=== PATIENT | male | born 1945 | race Caucasian/White ===

== ENCOUNTER 2018-07-17 20:54 | Inpatient (IN) | payer OTHER ==
[~2018-07-17] VITALS: Ht 170.2 cm; Wt 70.8 kg
[~2018-07-17 20:54] MED LIST: ASPI-630 PO; AZAT50TA20 PO; CARV25TA PO; FENO145T PO; GLYB1.252 PO; METF500T16 PO; SIMV40TA PO; VALS160T3 PO; WARF2TAB PO
[2018-07-17] MEDS ORDERED: ADENOSINE 6 MG/2 ML VIAL. IV ONE (21:30)
[2018-07-17] MEDS ORDERED: ASPIRIN CHEWABLE 81 MG TABLET. PO ONE (21:30)
[2018-07-17 21:36] LABS: BASO % 0 % (0-3); EOS # 0.1 x10^3/uL (0.0-0.7); EOS % 1 % (0-3); HEMATOCRIT 47.9 % (39.0-53.0); LYMPH # 1.4 x10^3/uL (1.0-4.8); LYMPH % 19 % (24-48); MEAN CORPUSCULAR HEMOGLOBIN 29 pg (25-35); MEAN CORPUSCULAR HGB CONC 33 g/dL (31-37); MEAN CORPUSCULAR VOLUME 87 fL (79-100); MONO # 0.7 x10^3/uL (0.0-1.1); MONO % 9 % (0-9); NEUT # 5.1 x10^3uL (1.8-7.7); NEUT % 70 % (31-73); PLATELET COUNT 187 x10^3/uL (140-400); RED BLOOD COUNT 5.48 x10^6/uL (4.30-5.70); RED CELL DISTRIBUTION WIDTH 13.6 % (11.5-14.5); WHITE BLOOD COUNT 7.3 x10^3/uL (4.0-11.0)
--- NOTE | 2018-07-17 21:38 | RAD ---
Exam: AP portable chest History: Chest pain for 2 days. Comparison: February 20, 2014. Findings: The heart and mediastinal structures are within normal limits for size. Lungs are without infiltrate. No pleural effusion or pneumothorax is identified. Aortic atherosclerosis is seen. Impression: 1. No acute cardiopulmonary process. Electronically signed by: Magnus Soler MD (07/17/2018 9:35 PM) [facility]
[2018-07-17 21:44] LABS: PROTHROMBIN TIME PATIENT 27.3 SEC (11.7-14.0)
[2018-07-17] MEDS ORDERED: dilTIAZem IV PUSH 25 MG/5 ML VIAL ONE (21:46)
[2018-07-17 21:48] LABS: CALCIUM 9.4 mg/dL (8.5-10.1); CREATININE 1.4 mg/dL (0.7-1.3); POTASSIUM 4.8 mmol/L (3.5-5.1)
[2018-07-17 21:53] LABS: ALBUMIN 3.9 g/dL (3.4-5.0); ALBUMIN/GLOBULIN RATIO 0.9 (1.0-1.7); MAGNESIUM 1.8 mg/dL (1.8-2.4); TOTAL BILIRUBIN 0.7 mg/dL (0.2-1.0); TOTAL PROTEIN 8.1 g/dL (6.4-8.2)
[2018-07-17] MEDS ORDERED: dilTIAZem IV PUSH 25 MG/5 ML VIAL IVP ONE (22:00)
[2018-07-17] MEDS ORDERED: dilTIAZem INJ 125 MG in IV DEXTROSE 5% 100ML 100 ML IV ONE (22:00)
--- NOTE | 2018-07-17 23:13 | PHYS DOC ---
Past Medical History Past Medical History: CAD, CVA, Diabetes-Type II, Hypertension, OR, Other Additional Past Medical Histor: states,"he has had heart problems." OR 2004 Past Surgical History: Other Additional Past Surgical Histo: R) ear drum removed,gallstones and kidney stones, fatty tumor removed from Alcohol Use: None Drug Use: None Adult General Chief Complaint Chief Complaint: CHEST PAIN HPI HPI Patient is a 73 year old [male who presents with [chest pain. This is been going on intermittently for the past 2 days. Patient also reports a fast heart rate when this seems to happen. Patient notes increased work of breathing, decreased exercise tolerance. The chest pain does improve when it is going on when he does rest. No orthopnea. No lower extremity swelling. Patient reports this pain is similar to the pain that he had with his previous heart attack. Patient also has a history of previous stroke. 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 His primary care physician is Kylie Walter. He denies any radiation of the discomfort. Reports the discomfort as a heaviness.] Review of Systems Review of Systems Constitutional: Denies fever or chills [] Eyes: Denies change in visual acuity, redness, or eye pain [] HENT: Denies nasal congestion or sore throat [] Respiratory: Denies cough or shortness of breath [] Cardiovascular: No additional information not addressed in HPI [] GI: Denies abdominal pain, nausea, vomiting, bloody stools or diarrhea [] : Denies dysuria or hematuria [] Musculoskeletal: Denies back pain or joint pain [] Integument: Denies rash or skin lesions [] Neurologic: Denies headache, focal weakness or sensory changes [] Endocrine: Denies polyuria or polydipsia [] All other systems were reviewed and found to be within normal limits, except as documented in this note. Current Medications Current Medications Current Medications Medications (Trade) Dose Ordered Sig/Mykel Start Time Stop Time Status Last Admin Dose Admin Adenosine (Adenocard) 18 mg 1X ONCE 07/17/18 21:30 07/17/18 21:31 DC 07/17/18 21:40 18 MG Aspirin (Children'S Aspirin) 324 mg 1X ONCE 07/17/18 21:30 07/17/18 21:31 DC 07/17/18 21:35 324 MG Diltiazem HCl (Cardizem) 10 mg 1X ONCE 07/17/18 22:00 07/17/18 22:01 DC Diltiazem HCl 125 mg/Dextrose 125 ml @ 5 mls/hr 1X ONCE 07/17/18 22:00 07/18/18 22:59 Allergies Allergies Allergies Coded Allergies Type Severity Reaction Last Updated Verified No Known Drug Allergies 02/20/14 No Physical Exam Physical Exam Constitutional: Well developed, well nourished, moderate discomfort, non-toxic appearance. [] HENT: Normocephalic, atraumatic, bilateral external ears normal, oropharynx moist, no oral exudates, nose normal. [] Eyes: PERRLA, EOMI, conjunctiva normal, no discharge. [] Neck: Normal range of motion, no tenderness, supple, no stridor. [] Cardiovascular:Heart rate is tachycardic, regular rhythm, no murmur [] Lungs & Thorax: Bilateral breath sounds clear to auscultation [] Abdomen: Bowel sounds normal, soft, no tenderness, no masses, no pulsatile masses. [] Skin: Warm, dry, no erythema, no rash. [] Back: No tenderness, no CVA tenderness. [] Extremities: No tenderness, no cyanosis, no clubbing, ROM intact, no edema. [] Neurologic: Alert and oriented X 3, normal motor function, normal sensory function, no focal deficits noted. [] Psychologic: Affect normal, judgement normal, mood normal. [] Current Patient Data Vital Signs Vital Signs Date Time Temp Pulse Resp B/P (MAP) Pulse Ox O2 Delivery O2 Flow Rate FiO2 07/17/18 22:25 85 19 113/69 (84) 98 Room Air 07/17/18 21:05 97.6 97.6 Lab Values Laboratory Tests Test 07/17/18 21:15 07/17/18 21:26 White Blood Count 7.3 x10^3/uL (4.0-11.0) Red Blood Count 5.48 x10^6/uL (4.30-5.70) Hemoglobin 16.0 g/dL (13.0-17.5) Hematocrit 47.9 % (39.0-53.0) Mean Corpuscular Volume 87 fL (79-100) Mean Corpuscular Hemoglobin 29 pg (25-35) Mean Corpuscular Hemoglobin Concent 33 g/dL (31-37) Red Cell Distribution Width 13.6 % (11.5-14.5) Platelet Count 187 x10^3/uL (140-400) Neutrophils (%) (Auto) 70 % (31-73) Lymphocytes (%) (Auto) 19 % (24-48) L Monocytes (%) (Auto) 9 % (0-9) Eosinophils (%) (Auto) 1 % (0-3) Basophils (%) (Auto) 0 % (0-3) Neutrophils # (Auto) 5.1 x10^3uL (1.8-7.7) Lymphocytes # (Auto) 1.4 x10^3/uL (1.0-4.8) Monocytes # (Auto) 0.7 x10^3/uL (0.0-1.1) Eosinophils # (Auto) 0.1 x10^3/uL (0.0-0.7) Basophils # (Auto) 0.0 x10^3/uL (0.0-0.2) Prothrombin Time 27.3 SEC (11.7-14.0) H Prothrombin Time INR 2.6 (0.8-1.1) H Sodium Level 142 mmol/L (136-145) Potassium Level 4.8 mmol/L (3.5-5.1) Chloride Level 104 mmol/L (98-107) Carbon Dioxide Level 25 mmol/L (21-32) Anion Gap 13 (6-14) Blood Urea Nitrogen 19 mg/dL (8-26) Creatinine 1.4 mg/dL (0.7-1.3) H Estimated GFR (Cockcroft-Gault) 50.0 BUN/Creatinine Ratio 14 (6-20) Glucose Level 219 mg/dL (70-99) H Calcium Level 9.4 mg/dL (8.5-10.1) Magnesium Level 1.8 mg/dL (1.8-2.4) Total Bilirubin 0.7 mg/dL (0.2-1.0) Aspartate Amino Transferase (AST) 60 U/L (15-37) H Alanine Aminotransferase (ALT) 79 U/L (16-63) H Alkaline Phosphatase 75 U/L (46-116) Creatine Kinase 88 U/L (39-308) Creatine Kinase MB (Mass) 6.4 ng/mL (0.0-3.6) H Creatine Kinase MB Relative Index 7.3 % (0-4) H Troponin I Quantitative 0.840 ng/mL (0.000-0.055) OK-Nrt-X-Type Natriuretic Peptide 1259 pg/mL (0-124) H Total Protein 8.1 g/dL (6.4-8.2) Albumin 3.9 g/dL (3.4-5.0) Albumin/Globulin Ratio 0.9 (1.0-1.7) L Lipase 206 U/L (73-393) POC Troponin I 0.25 ng/ml (<0.08) Laboratory Tests 07/17/18 21:15 Laboratory Tests 07/17/18 21:15 EKG EKG EKG several EKGs were obtained during the patient's stay the initial one showed a tachycardia with QRS and normal axis that appeared to be an SVT. There was no ST elevation[] Radiology/Procedures Radiology/Procedures Portable chest x-ray obtained that showed no infiltrate, no effusion, no pneumothorax[] Course & Med Decision Making Course & Med Decision Making Pertinent Labs and Imaging studies reviewed. (See chart for details) [Patient's cardiac enzymes/troponin was elevated at 0.8. ED course patient arrived, was placed in bed, and tolerated evaluation well. Patient was initially felt to be in SVT given his tachycardia that was regular and so 2 IV sites were established and patient gave verbal consent after risks and benefits of adenosine cardioversion were explained to him with all questions answered. Patient was placed on hospital monitor with the crash cart at bedside. An initial dose of 6 mg of adenosine was administered without any significant change in the heart rate, a second dose of 12 mg of adenosine was administered that revealed an underlying fibrillation pattern. Patient's heart rate promptly returned to the 130s to 140s. As preparation was being made for diltiazem bolus and infusion, his heart rate slowed to the 80s and a repeat EKG was obtained that showed a heart rate of 69, normal axis, flipped T waves in the lateral leads as well as inferiorly. Patient reported that his pain was improved. Consultation was made with Dr. Eldridge in cardiology who agreed with the plan. Patient was admitted to Dr. Madrigal and the hospitalist service. Discussion was made with patient and his who voiced understanding of the plan and QUESTIONS were answered. Critical care time of 35-70 minutes was provided. Medical decision-making: It appears this patient had more of a supply demand mismatch due to the tachycardia rather than a fixed obstruction requiring urgent /emergent cardiac catheterization. Patient did receive aspirin while in the emergency department. Patient's INR was appropriate at 2.6 to not require further anticoagulation at this time.] Dragon Disclaimer Dragon Disclaimer This electronic medical record was generated, in whole or in part, using a voice recognition dictation system. Departure Departure Impression: Primary Impression: Atrial fibrillation with rapid ventricular response Additional Impression: Non-STEMI (non-ST elevated myocardial infarction) Disposition: 09 ADMITTED INPATIENT Admitting Physician: Other Condition: IMPROVED Referrals: KYLIE WALTER APRN (PCP) Problem Qualifiers SAGAR BROTHERS DO Jul 17, 2018 23:13
[2018-07-18] VITALS (16 sets, daily range): BP systolic 99–164; BP diastolic 57–97
[2018-07-18] MEDS ORDERED: LOSA1TAB19 PO
--- NOTE | 2018-07-18 01:56 | EKG ---
[facility] [address] [place] [address] Test Date: 2018-07-17 Test Time: 21:58:18 Pat Name: ABHILASH FREIRE Department: Room: 269 1 Gender: M Pharmacy Intake Technician: : 1945 Requested By: SAGAR BROTHERS Order Number: [id number] Reading MD: Yung Buckley MD Measurements Intervals [place] Rate: 69 P: 41 CT: 152 QRS: 26 QRSD: 94 T: 15 QT: 398 QTc: 428 Interpretive Statements SINUS RHYTHM Electronically Signed On 07-18-2018 9:21:19 CDT by Yung Buckley MD
--- NOTE | 2018-07-18 01:56 | EKG ---
[facility] [address] [place] [address] Test Date: 2018-07-17 Test Time: 21:09:54 Pat Name: ABHILASH FREIRE Department: Room: 269 1 Gender: M Detacher: : 1945 Requested By: SAGAR BROTHERS Order Number: [id number] Reading MD: Yung Buckley MD Measurements Intervals [place] Rate: 135 P: [place]: QRS: 45 QRSD: 86 T: -49 QT: 280 QTc: 424 Interpretive Statements SUPRAVENTRICULAR TACHYCARDIA ANTEROLATERAL INJURY/ISCHEMIA NON-SPECIFIC ST/T CHANGES Electronically Signed On 07-18-2018 13:50:04 CDT by Yung Buckley MD
--- NOTE | 2018-07-18 01:56 | EKG ---
[facility] [address] [place] [address] Test Date: 2018-07-17 Test Time: 21:41:03 Pat Name: ABHILASH FREIRE Department: Room: 269 1 Gender: M Shift Engineer: : 1945 Requested By: SAGAR BROTHERS Order Number: [id number] Reading MD: Yung Buckley MD Measurements Intervals [place] Rate: 132 P: [place]: QRS: 44 QRSD: 88 T: -94 QT: 290 QTc: 432 Interpretive Statements SVT CONSIDER ANTEROLATERAL ISCHEMIA Electronically Signed On 07-18-2018 9:22:06 CDT by Yung Buckley MD
--- NOTE | 2018-07-18 07:02 | PDOC1 ---
History and Physical Date of Admission Date of Admission DATE: 07/18/18 TIME: 06:58 Identification/Chief Complaint Chief Complaint Shortness of breath NSTEMI Source Source: Caregiver (), Chart review, Patient History of Present Illness History of Present Illness 73 year old male who presents with chest pain. This is been going on intermittently for the past 2 days, described as discomfort 6/10, non- radiating. Associated with palpitations and increased work of breathing, decreased exercise tolerance. The chest pain does improve when it is going on when he does rest. No orthopnea. No lower extremity swelling. Patient reports this pain is similar to the pain that he had with his previous heart attack. Patient also has a history of previous stroke with some residual aphasia, history obtained from his as well. In ED SVT was noted and initial dose of 6 mg of adenosine was administered without any significant change in the heart rate, a second dose of 12 mg of adenosine was administered that revealed an underlying fibrillation pattern. Patient's heart rate promptly returned to the 130s to 140s. As preparation was being made for diltiazem bolus and infusion, his heart rate slowed to the 80s and a repeat EKG was obtained that showed a heart rate of 69, normal axis, flipped T waves in the lateral leads as well as inferiorly. Cr noted at 1.4, blood counts normal. Mild transaminitis with ALT and AST elevated. Patient reported that his pain was improved. Consultation was made with Dr. Eldridge in cardiology who agreed with the plan. Troponin was elevated at 0.8. and continued to climb to 7.8 overnight and 22 this morning, going to rn labor delivery urgently now. 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 Past Medical History Cardiovascular: HTN CENTRAL NERVOUS SYSTEM: CVA Past Surgical History Past Surgical History: No pertinent history Family History Family History: Heart Disease Family History: Parent Social History Smoke: Quit ALCOHOL: none Drugs: None Current Problem List Problem List Problems Medical Problems: (1) Atrial fibrillation with rapid ventricular response Status: Acute (2) Non-STEMI (non-ST elevated myocardial infarction) Status: Acute Current Medications Current Medications Current Medications Aspirin (Children'S Aspirin) 324 mg 1X ONCE PO Last administered on at 21:35; Start 07/17/18 at 21:30; Stop 07/17/18 at 21:31; Status DC Adenosine (Adenocard) 18 mg 1X ONCE IV Last administered on 07/17/18at 21:40; Start 07/17/18 at 21:30; Stop 07/17/18 at 21:31; Status DC Diltiazem HCl (Cardizem) 25 mg STK-MED ONCE .ROUTE ; Start 07/17/18 at 21:46; Stop 07/17/18 at 21:47; Status DC Diltiazem HCl (Cardizem) 10 mg 1X ONCE IVP ; Start 07/17/18 at 22:00; Stop at 22:01; Status DC Diltiazem HCl 125 mg/Dextrose 125 ml @ 5 mls/hr 1X ONCE IV ; Start 07/17/18 at 22:00; Stop 07/18/18 at 22:59 Active Scripts Active Reported Losartan-Hctz 50-12.5 Mg Tab (Losartan/Hydrochlorothiazide) 1 Each Tablet 1 Tab PO DAILY Glyburide 1.25 Mg Tablet 2.5 Mg PO BID Metformin Hcl 500 Mg Tablet 850 Mg PO BID Aspirin 81 Mg Tab.chew 81 Mg PO DAILY Coumadin (Warfarin Sodium) 2 Mg Tablet 4 Mg PO DAILY Zocor (Simvastatin) 40 Mg Tablet 20 Mg PO DAILY Coreg (Carvedilol) 25 Mg Tablet 12.5 Mg PO BID Allergies Allergies: Coded Allergies: No Known Drug Allergies (Unverified , 02/20/14) ROS General: YES: Fatigue, Malaise; No: Chills, Night Sweats, Appetite, Other PSYCHOLOGICAL ROS: No: Anxiety, Behavioral Disorder, Concentration difficultie , Decreased libido, Depression, Disorientation, Hallucinations, Hostility, Irritablity, Memory difficulties, Mood Swings, Obsessive thoughts, Physical abuse, Sexual abuse, Sleep disturbances, Suicidal ideation, Other Eyes: No Blurry vision, No Decreased vision, No Double vision, No Dry eyes, No Excessive tearing, No Eye Pain, No Itchy Eyes, No Loss of vision, No Photophobia , No Scotomata, No Uses contacts, No Uses glasses, No Other HEENT: No: Heacaches, Visual Changes, Hearing change, Nasal congestion, Nasal discharge, Oral lesions, Sinus pain, Sore Throat, Epistaxis, Sneezing, Snoring, Tinnitus, Vertigo, Vocal changes, Other ALLERGY AND IMMUNOLOGY: No: Hives, Insect Bite Sensitivity, Itchy/Watery Eyes, Nasal Congestion, Post Nasal Drip, Seasonal Allergies, Other Hematological and Lymphatic: No: Bleeding Problems, Blood Clots, Blood Transfusions, Brusing, Night Sweats, Pallor, Swollen Lymph Nodes, Other ENDOCRINE: No: Breast Changes, Galactorrhea, Hair Pattern Changes, Hot Flashes , Malaise/lethargy, Mood Swings, Palpitations, Polydipsia/polyuria, Skin Changes , Temperature Intolerance, Unexpected Weight Changes, Other Breast: No New/Changing Breast Lumps, No Nipple changes, No Nipple discharge, No Other Respiratory: YES: Shortness of breath; No: Cough, Hemoptysis, Orthopnea, Pleuritic Pain, SOB with excertion, Sputum Changes, Stridor, Tachypnea, Wheezing, Other Cardiovascular: yes Chest Pain, yes Palpitations; No Orthopnea, No Paroxysmal Noc. Dyspnea, No Edema, No Lt Headedness, No Other Gastrointestinal: No Nausea, No Vomiting, No Abdominal Pain, No Diarrhea, No Constipation, No Melena, No Hematochezia, No Other Genitourinary: No Dysuria, No Frequency, No Incontinence, No Hematuria, No Retention, No Discharge, No Urgency, No Pain, No Flank Pain, No Other, No , No , No , No , No , No , No Musculoskeletal: No Gait Disturbance, No Joint Pain, No Joint Stiffness, No Joint Swelling, No Muscle Pain, No Muscular Weakness, No Pain In:, No Swelling In:, No Other Neurological: No Behavorial Changes, No Bowel/Bladder ControlChng, No Confusion , No Dizziness, No Gait Disturbance, No Headaches, No Impaired Coord/balance, No Memory Loss, No Numbness/Tingling, No Seizures, No Speech Problems, No Tremors, No Visual Changes, No Weakness, No Other Skin: No Dry Skin, No Eczema, No Hair Changes, No Lumps, No Mole Changes, No Mottling, No Nail Changes, No Pruritus, No Rash, No Skin Lesion Changes, No Other, No Acne Physical Exam General: Alert, Cooperative, No acute distress HEENT: Atraumatic, PERRLA, EOMI, Mucous membr. moist/pink Lungs: Clear to auscultation, Normal air movement Heart: S1S2, no murmurs, other (Tachy) Abdomen: Normal bowel sounds, Soft, No tenderness, No hepatosplenomegaly, No masses Rectal Exam: not examined Extremities: No clubbing, No cyanosis, No edema, Normal pulses, No tenderness/ swelling Skin: No rashes, No breakdown, No significant lesion Neuro: Normal gait, Normal speech, Normal tone, Sensation intact, Cranial nerves 3-12 NL, Reflexes 2+ Psych/Mental Status: Mental status NL, Mood NL Vitals Vitals Vital Signs Date Time Temp Pulse Resp B/P (MAP) Pulse Ox O2 Delivery O2 Flow Rate FiO2 07/18/18 03:15 98.3 85 18 99/61 (74) 97 Room Air 98.3 Labs Labs Laboratory Tests Test 07/17/18 21:15 07/17/18 21:26 07/18/18 02:00 White Blood Count 7.3 x10^3/uL (4.0-11.0) Red Blood Count 5.48 x10^6/uL (4.30-5.70) Hemoglobin 16.0 g/dL (13.0-17.5) Hematocrit 47.9 % (39.0-53.0) Mean Corpuscular Volume 87 fL (79-100) Mean Corpuscular Hemoglobin 29 pg (25-35) Mean Corpuscular Hemoglobin Concent 33 g/dL (31-37) Red Cell Distribution Width 13.6 % (11.5-14.5) Platelet Count 187 x10^3/uL (140-400) Neutrophils (%) (Auto) 70 % (31-73) Lymphocytes (%) (Auto) 19 % (24-48) Monocytes (%) (Auto) 9 % (0-9) Eosinophils (%) (Auto) 1 % (0-3) Basophils (%) (Auto) 0 % (0-3) Neutrophils # (Auto) 5.1 x10^3uL (1.8-7.7) Lymphocytes # (Auto) 1.4 x10^3/uL (1.0-4.8) Monocytes # (Auto) 0.7 x10^3/uL (0.0-1.1) Eosinophils # (Auto) 0.1 x10^3/uL (0.0-0.7) Basophils # (Auto) 0.0 x10^3/uL (0.0-0.2) Prothrombin Time 27.3 SEC (11.7-14.0) Prothromb Time International Ratio 2.6 (0.8-1.1) Sodium Level 142 mmol/L (136-145) Potassium Level 4.8 mmol/L (3.5-5.1) Chloride Level 104 mmol/L (98-107) Carbon Dioxide Level 25 mmol/L (21-32) Anion Gap 13 (6-14) Blood Urea Nitrogen 19 mg/dL (8-26) Creatinine 1.4 mg/dL (0.7-1.3) Estimated GFR (Cockcroft-Gault) 50.0 BUN/Creatinine Ratio 14 (6-20) Glucose Level 219 mg/dL (70-99) Calcium Level 9.4 mg/dL (8.5-10.1) Magnesium Level 1.8 mg/dL (1.8-2.4) Total Bilirubin 0.7 mg/dL (0.2-1.0) Aspartate Amino Transf (AST/SGOT) 60 U/L (15-37) Alanine Aminotransferase (ALT/SGPT) 79 U/L (16-63) Alkaline Phosphatase 75 U/L (46-116) Creatine Kinase 88 U/L (39-308) Creatine Kinase MB (Mass) 6.4 ng/mL (0.0-3.6) Creatine Kinase MB Relative Index 7.3 % (0-4) Troponin I Quantitative 0.840 ng/mL (0.000-0.055) 7.839 ng/mL (0.000-0.055) EX-Pwz-G-Type Natriuretic Peptide 1259 pg/mL (0-124) Total Protein 8.1 g/dL (6.4-8.2) Albumin 3.9 g/dL (3.4-5.0) Albumin/Globulin Ratio 0.9 (1.0-1.7) Lipase 206 U/L (73-393) Bedside Troponin I 0.25 ng/ml (<0.08) Laboratory Tests Test 07/17/18 21:15 07/17/18 21:26 07/18/18 02:00 White Blood Count 7.3 x10^3/uL (4.0-11.0) Red Blood Count 5.48 x10^6/uL (4.30-5.70) Hemoglobin 16.0 g/dL (13.0-17.5) Hematocrit 47.9 % (39.0-53.0) Mean Corpuscular Volume 87 fL (79-100) Mean Corpuscular Hemoglobin 29 pg (25-35) Mean Corpuscular Hemoglobin Concent 33 g/dL (31-37) Red Cell Distribution Width 13.6 % (11.5-14.5) Platelet Count 187 x10^3/uL (140-400) Neutrophils (%) (Auto) 70 % (31-73) Lymphocytes (%) (Auto) 19 % (24-48) Monocytes (%) (Auto) 9 % (0-9) Eosinophils (%) (Auto) 1 % (0-3) Basophils (%) (Auto) 0 % (0-3) Neutrophils # (Auto) 5.1 x10^3uL (1.8-7.7) Lymphocytes # (Auto) 1.4 x10^3/uL (1.0-4.8) Monocytes # (Auto) 0.7 x10^3/uL (0.0-1.1) Eosinophils # (Auto) 0.1 x10^3/uL (0.0-0.7) Basophils # (Auto) 0.0 x10^3/uL (0.0-0.2) Prothrombin Time 27.3 SEC (11.7-14.0) Prothromb Time International Ratio 2.6 (0.8-1.1) Sodium Level 142 mmol/L (136-145) Potassium Level 4.8 mmol/L (3.5-5.1) Chloride Level 104 mmol/L (98-107) Carbon Dioxide Level 25 mmol/L (21-32) Anion Gap 13 (6-14) Blood Urea Nitrogen 19 mg/dL (8-26) Creatinine 1.4 mg/dL (0.7-1.3) Estimated GFR (Cockcroft-Gault) 50.0 BUN/Creatinine Ratio 14 (6-20) Glucose Level 219 mg/dL (70-99) Calcium Level 9.4 mg/dL (8.5-10.1) Magnesium Level 1.8 mg/dL (1.8-2.4) Total Bilirubin 0.7 mg/dL (0.2-1.0) Aspartate Amino Transf (AST/SGOT) 60 U/L (15-37) Alanine Aminotransferase (ALT/SGPT) 79 U/L (16-63) Alkaline Phosphatase 75 U/L (46-116) Creatine Kinase 88 U/L (39-308) Creatine Kinase MB (Mass) 6.4 ng/mL (0.0-3.6) Creatine Kinase MB Relative Index 7.3 % (0-4) Troponin I Quantitative 0.840 ng/mL (0.000-0.055) 7.839 ng/mL (0.000-0.055) QE-Yaa-W-Type Natriuretic Peptide 1259 pg/mL (0-124) Total Protein 8.1 g/dL (6.4-8.2) Albumin 3.9 g/dL (3.4-5.0) Albumin/Globulin Ratio 0.9 (1.0-1.7) Lipase 206 U/L (73-393) Bedside Troponin I 0.25 ng/ml (<0.08) VTE Prophylaxis Ordered VTE Prophylaxis Devices: Yes VTE Pharmacological Prophylaxi: Yes Assessment/Plan Assessment/Plan A/P: NSTEMI - with trop 22 and TWI, to rn labor delivery urgently, heparin, ASA, NTG, BB. Cardiology consulted Shortness of breath - likely cardiac wheezing H/O CVA - with some aphasia. 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 Cont coreg for rate control DM - on metformin, glyburide, hold both, change to SSI HTN - on coreg, will monitor Renal insufficiency - acute with Cr 1.4. Will give fluids prior to angiogram, cont fluids after as well as this was likely pre-renal. Hold nephrotoxic meds Diet - NPO for cath - cardiac carb consistent diet PPX - heparin, may reinitiate warfarin dependent on cardiology recs FULL CODE Admit to CVICU for NSTEMI at least 2 midnights. SOFIA AL MD Jul 18, 2018 07:02
--- NOTE | 2018-07-18 09:39 | PDOC ---
Provider Note Provider Note Full note dictated. Plan for cardiac cath later today. Thanks. MARIANGEL MCCLELLAND MD Jul 18, 2018 09:39
[2018-07-18] MEDS ORDERED: LIDOCAINE 1% PF 2 ML VIAL. ONE (10:01)
[2018-07-18] MEDS ORDERED: HEPARIN for ARTERIAL LINE 1,500 ML ONE (10:01)
[2018-07-18] MEDS ORDERED: IODIXANOL 320 MG/ML 100 ML VIAL. ONE ×2 (10:01→11:44)
[2018-07-18] MEDS ORDERED: fentaNYL PF VIAL 100 MCG/2 ML VIAL ONE (10:03)
[2018-07-18] MEDS ORDERED: HEPARIN for IV BOLUS 10,000 UNIT/10 ML VIAL. ONE ×2 (10:03→12:06)
[2018-07-18] MEDS ORDERED: VERAPAMIL 5 MG/2 ML VIAL. ONE (10:03)
[2018-07-18] MEDS ORDERED: NITROGLYCERIN 200 MCG/2 ML SYRINGE FOR CATH/VASC LAB. ONE ×2 (10:03→11:56)
[2018-07-18] MEDS ORDERED: MIDAZOLAM HCL/PF 2 MG/2 ML VIAL. ONE (10:03)
--- NOTE | 2018-07-18 10:11 | CONS ---
DATE OF CONSULTATION: 07/18/2018 REASON FOR CONSULTATION: Non-STEMI. HISTORY OF PRESENT ILLNESS: The patient is a pleasant 73-year-old gentleman with past medical history as noted below, who presents to the hospital in the setting of stuttering chest pain over the course of the previous 1-3 days. He reports that he was in his usual state of health until 3 days ago when he began to have some dizziness and intermittent chest pain. This ultimately progressed to severe kind of chest pain where he arrived to the ER. Upon arrival to the ER, he was noted to be in supraventricular tachycardia with heart rates in the 150s, which was subsequently treated with 12 mg of adenosine and it was felt that he was in atrial fibrillation. Ultimately, after being given Cardizem therapy, he converted to sinus rhythm. His post-conversion EKG revealed diffuse anterolateral T-wave inversions with a troponin of 0.8. He, after conversion, was nearly chest pain free and was admitted to the hospital overnight for monitoring and further evaluation and treatment. In speaking with the patient at baseline, he is able to ambulate and occasionally drive. He is mostly limited due to his previous stroke. Denies any active orthopnea, dyspnea, lower extremity edema. He has been compliant with his medications. PAST MEDICAL HISTORY: 1. CVA in 2003 and presumed type 2 non-STEMI at that time. 2. Diabetes. 3. Dyslipidemia. SOCIAL HISTORY: The patient denies any alcohol, tobacco or illicit drug use. He is . FAMILY HISTORY: Noncontributory. ALLERGIES: No known drug allergies. CURRENT CARDIOVASCULAR MEDICATIONS: 1. Coumadin as directed. 2. Carvedilol 25 mg b.i.d. 3. Simvastatin 40 mg daily. 4. Losartan/hydrochlorothiazide 50/12.5 one tablet daily. 5. Aspirin 81 mg daily. 6. Metformin 850 mg p.o. b.i.d. 7. Glyburide 2.5 mg p.o. b.i.d. REVIEW OF SYSTEMS: Negative for 10 out of 14 systems reviewed, unless otherwise mentioned above in HPI. PHYSICAL EXAMINATION: VITAL SIGNS: Afebrile, pulse 70, respirations 16, BP 122/73, 96% on room air. GENERAL: He is alert and oriented, in no acute distress, resting comfortably in his bed. HEAD AND NECK: His speech is mildly dysarthric due to prior stroke. No obvious trauma is noted. CARDIAC: Regular rate and rhythm without any obvious murmurs, rubs or gallops. There are no carotid bruits. LUNGS: Clear to auscultation bilaterally anteriorly. ABDOMEN: Soft, nontender, nondistended. EXTREMITIES: No clubbing, cyanosis or edema. 1+ radial and diminished pedal pulses. NEUROLOGIC: No focal deficits, but he has decreased strength throughout globally. DIAGNOSTIC STUDIES: Hemoglobin 16.0, platelets 187, INR of 2.6. Troponin trend: 0.84-7.8-22. BNP 1259. Chest x-ray demonstrates a normal heart silhouette. No obvious pathology is noted. EKGs demonstrate prior anterior infarct with diffuse anterolateral T-wave inversion suggestive of proximal LAD stenosis. IMPRESSION: 1. Non-ST elevation myocardial infarction, likely secondary to proximal LAD stenosis. 2. Supraventricular tachycardia/atrial flutter, currently in sinus rhythm. 3. Prior history of cerebrovascular accident. 4. Dyslipidemia. 5. Diabetes. RECOMMENDATIONS: I discussed with the patient and the family the risks and benefits of urgent invasive strategy with cardiac catheterization and they are willing to proceed. Further recommendations pending cardiac catheterization. Thank you for this consultation. 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 s/p PCI. see cath report. MARIANGEL MCCLELLAND MD DR: MINDI/sruthi JOB#: [id number] / [id number] RETA
[2018-07-18] MEDS ORDERED: NITROGLYCERIN 200 MCG/2 ML SYRINGE FOR CATH/VASC LAB. IART ONE (11:00)
[2018-07-18] MEDS ORDERED: VERAPAMIL 5 MG/2 ML VIAL. IART ONE (11:00)
[2018-07-18] MEDS: ASPIRIN CHEWABLE 81 MG TABLET. PO SCH (11:00)
[2018-07-18] MEDS ORDERED: ATROPINE 1 MG/10 ML DISP.SYRINGE. ONE (11:00)
[2018-07-18] MEDS: CARVEDILOL 12.5 MG TABLET. PO SCH ×2 (11:00→17:37)
[2018-07-18] MEDS ORDERED: DEXTROSE 50% 25 GM / 50ML DISP.SYRIN. IV PRN (11:00)
[2018-07-18] MEDS ORDERED: HEPARIN for IV BOLUS 10,000 UNIT/10 ML VIAL. IART ONE (11:00)
[2018-07-18] MEDS: INSULIN LISPRO 300 UNITS/3 ML INSULN.PEN. SQ SCH ×2 (12:00→17:00)
[2018-07-18] MEDS ORDERED: TICAGRELOR 90 MG TABLET. ONE (12:05)
[2018-07-18] MEDS ORDERED: TICAGRELOR 90 MG TABLET. PO ONE (12:15)
[2018-07-18] MEDS ORDERED: IV NORMAL SALINE 1000ML BAG 1,000 ML IV ONE (12:15)
[2018-07-18] MEDS ORDERED: IODIXANOL 320 MG/ML 100 ML VIAL. IART ONE (12:15)
[2018-07-18] MEDS ORDERED: fentaNYL PF VIAL 100 MCG/2 ML VIAL IV ONE (12:15)
[2018-07-18] MEDS ORDERED: MIDAZOLAM HCL/PF 2 MG/2 ML VIAL. IV ONE (12:15)
[2018-07-18] MEDS ORDERED: HEPARIN for IV BOLUS 10,000 UNIT/10 ML VIAL. IV ONE (12:15)
[2018-07-18] MEDS ORDERED: LIDOCAINE 1% PF 2 ML VIAL. INJ ONE (12:15)
--- NOTE | 2018-07-18 13:41 | CARD ---
MR#: [id number] Date of Study: 07/18/2018 Ordering Physician: MARIANGEL BUCKLEY, Referring Physician: ARMANDO EASON, Tech: RT Pop (R) APPROVED REPORT Technologist: Pattie Enriquez RT (R) Nurse: Martina Gazron RN Procedure(s) performed: Moderate sedation: 163 Minutes C, Coronary angiography Complex PCI of the RCA. HISTORY The patient is a 73 year-old male with a history of : diabetes mellitus with treatment, coronary louann ry disease, dyslipidemia. INDICATION The indication(s) include : non-STEMI Trop 22. PROCEDURE NARRATIVE CLINICAL INFORMATION: Patient is a 73 y.o man with multiple cardiac comorbidities (CVA, DLP, prior known ANESTHESIOLOGIST ATTENDING of the LAD) pr esenting with SVT and chest pain. 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 INFORMED CONSENT: After explaining the risks and benefits of the procedure and alternatives, informed consent was obtained. The patient was brought electively to the cardiac catheterization lab. A timeout was performed confi rming the patient's name, date of , procedure, and site of procedure. All necessary personnel w ere wearing the appropriate protective equipment and radiation monitor devices. (See nursing notes for medications administered). ACCESS: The right wrist was sterilely prepped and draped in the usual fashion. The right wrist was infiltrat ed with 1 mL of 2% lidocaine for subcutaneous anesthesia. A 6 [place] Terumo glide sheath was inserte d into the right radial artery without difficulty. CORONARY ANGIOGRAPHY: Right and left coronary angiography was performed using a 6Fr TIG 4.0 and JR4 catheters. Left ventr icular end diastolic pressure was obtained with a TIG catheter. FINDINGS: HEMODYNAMICS: LVEDP 17 mm Hg No gradient on LV to aortic pullback. AO: 128/78 LEFT VENTRICULOGRAM: Deferred due to CKD. CORONARY ANGIOGRAPHY: LM is a moderate caliber vessel with probable circumferential 30% stenosis. LAD is a a moderate caliber vessel with a proximal 100% ANESTHESIOLOGIST ATTENDING. The mid and distal vessel fill via robus t left to left collaterals. D1/D2 are small to moderate caliber vessels with mild diffuse irregularities. LCx is a moderate caliber non-dominant vessel with a proximal 50% stenosis. OM1 is a moderate caliber vessel with mild diffuse luminal irregularities. RCA is a large caliber dominant vessel with a complex calcified proximal plaque and sequential 90% st enoses. RPDA is a moderate to large caliber vessel with a 50% proximal stenosis that was seen in cath in 2004 . INTERVENTIONAL TECHNIQUE: Heparin only was used for an to regulation as the patient was previously on Coumadin with an INR of 2 .5 when he was brought to the catheter lab. After confirmation of the proximal RCA is the culprit les ion through a JR4 guide catheter initial attempts to advance a pro-water wire and a Choice PT wire ov er a balloon were difficult due to significant calcification and tortuosity of the right coronary art andressa and lack of consistent guide support. Ultimately, the JR4 was exchanged for a 0.[address] which was then able to provide better support. Subsequently, a pro-water wire was advanced to the distal RPDA. Sequential balloon angioplasty was then performed with 1.5, 2.0, 3.0 and 4.0 mm balloon s. Finally, the lesion was stented with a 4.0x26 mm resolute drug-eluting stent at 18 raegan. Final post -PCI angiography demonstrated excellent stent expansion with AMY-3 flow in the RCA. There was no michelle dence of guide or wire related complications. This case was extremely difficult due to significant ca lcification of the right coronary artery and lack of adequate guide support initially. The patient re ceived 180mg of Ticagrelor at case completion. CLOSURE: At case completion the right radial sheath was removed and a Terumo radial band was applied with 13 m l of air. COMPLICATIONS: The patient tolerated the procedure well and there were no immediate complications. Conclusion 1. NSTEMI 2. Two vessel CAD 3. Successful complex PCI of the proximal RCA with implantation of Resolute 4.0/26 mm SHALOM Recommendations ASA 81mg daily indefinitely Ticagrelor 90mg bid Will need to determine need for warfarin, ? history of afib? Continue statin therapy. Signed by : Mariangel Buckley, Electronically Approved : 07/18/2018 13:40:13
[2018-07-18] MEDS ORDERED: SIMVASTATIN 20 MG TABLET PO SCH (21:00)
[2018-07-18] MEDS: TICAGRELOR 90 MG TABLET. PO SCH (21:34)
[2018-07-19 03:55] VITALS: BP 95/71
--- NOTE | 2018-07-19 06:04 | EKG ---
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
[2018-07-19 07:10] VITALS: BP 99/58
[2018-07-19] MEDS: CARVEDILOL 12.5 MG TABLET. PO SCH (08:00)
[2018-07-19 08:28] LABS: BASO % 0 % (0-3); EOS # 0.1 x10^3/uL (0.0-0.7); EOS % 1 % (0-3); HEMATOCRIT 45.5 % (39.0-53.0); HEMOGLOBIN 15.1 g/dL (13.0-17.5); LYMPH % 12 % (24-48); MEAN CORPUSCULAR HEMOGLOBIN 29 pg (25-35); MEAN CORPUSCULAR HGB CONC 33 g/dL (31-37); MEAN CORPUSCULAR VOLUME 88 fL (79-100); MONO # 0.7 x10^3/uL (0.0-1.1); MONO % 9 % (0-9); NEUT # 6.4 x10^3uL (1.8-7.7); NEUT % 78 % (31-73); PLATELET COUNT 169 x10^3/uL (140-400); RED CELL DISTRIBUTION WIDTH 13.5 % (11.5-14.5); WHITE BLOOD COUNT 8.3 x10^3/uL (4.0-11.0)
[2018-07-19] MEDS: ASPIRIN CHEWABLE 81 MG TABLET. PO SCH (08:29)
[2018-07-19] MEDS: TICAGRELOR 90 MG TABLET. PO SCH ×2 (08:29→21:01)
[2018-07-19] MEDS: INSULIN LISPRO 300 UNITS/3 ML INSULN.PEN. SQ SCH ×3 (08:31→17:00)
[2018-07-19 08:49] LABS: CALCIUM 8.8 mg/dL (8.5-10.1); GFR 73.7; POTASSIUM 4.4 mmol/L (3.5-5.1)
[2018-07-19] MEDS ORDERED: TICAGRELOR 90 MG TABLET. PO SCH (09:00)
--- NOTE | 2018-07-19 09:25 | PDOC ---
PROGRESS NOTES Chief Complaint Chief Complaint NSTEMI Shortness of breath H/O CVA Afib DM HTN Renal insufficiency History of Present Illness History of Present Illness 73 year old male who presents with chest pain. This is been going on intermittently for the past 2 days, described as discomfort 6/10, non- radiating. Associated with palpitations and increased work of breathing, decreased exercise tolerance. The chest pain does improve when it is going on when he does rest. No orthopnea. No lower extremity swelling. Patient reports this pain is similar to the pain that he had with his previous heart attack. Patient also has a history of previous stroke with some residual aphasia, history obtained from his as well. In ED SVT was noted and initial dose of 6 mg of adenosine was administered without any significant change in the heart rate, a second dose of 12 mg of adenosine was administered that revealed an underlying fibrillation pattern. Patient's heart rate promptly returned to the 130s to 140s. As preparation was being made for diltiazem bolus and infusion, his heart rate slowed to the 80s and a repeat EKG was obtained that showed a heart rate of 69, normal axis, flipped T waves in the lateral leads as well as inferiorly. Cr noted at 1.4, blood counts normal. Mild transaminitis with ALT and AST elevated. Patient reported that his pain was improved. Consultation was made with Dr. Eldridge in cardiology who agreed with the plan. Troponin was elevated at 0.8. and continued to climb to 7.8 overnight and 22 yesterday morning to lab asst urgently s/p successful complex PCI of the proximal RCA with implantation of Resolute 4.0/26 mm SHALOM 07/18/18. Converted back to atrial fibrillation overnight. A/P: NSTEMI - with trop 22 and TWI, to lab asst urgently with 2 SHALOM, heparin, ASA, NTG, BB, brillinta. Cardiology consulted Shortness of breath - likely cardiac wheezing H/O CVA - with some aphasia. 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 Cont coreg for rate control, though BP low overnight DM - on metformin, glyburide, hold both, changed to SSI HTN - on coreg, will monitor as his BP dropped Renal insufficiency - acute with Cr 1.4, improved to 1 this morning with fluids. Hold nephrotoxic meds Diet - cardiac carb consistent diet PPX - heparin, may reinitiate warfarin dependent on cardiology recs FULL CODE Admit to CVICU for NSTEMI at least 2 midnights. Vitals Vitals Vital Signs Date Time Temp Pulse Resp B/P (MAP) Pulse Ox O2 Delivery O2 Flow Rate FiO2 07/19/18 08:00 110 99/58 07/19/18 07:10 97.4 20 98 Nasal Cannula 2.0 97.4 Physical Exam General: Alert, Cooperative, No acute distress Abdomen: Normal bowel sounds, Soft, No tenderness, No hepatosplenomegaly, No masses Extremities: No clubbing, No cyanosis, No edema, Normal pulses, No tenderness/ swelling Skin: No rashes, No breakdown, No significant lesion Labs LABS Laboratory Tests Test 07/18/18 12:47 07/18/18 17:05 07/18/18 21:47 07/19/18 07:45 Glucose (Fingerstick) 165 mg/dL (70-99) 177 mg/dL (70-99) 188 mg/dL (70-99) 158 mg/dL (70-99) Test 07/19/18 08:05 White Blood Count 8.3 x10^3/uL (4.0-11.0) Red Blood Count 5.20 x10^6/uL (4.30-5.70) Hemoglobin 15.1 g/dL (13.0-17.5) Hematocrit 45.5 % (39.0-53.0) Mean Corpuscular Volume 88 fL (79-100) Mean Corpuscular Hemoglobin 29 pg (25-35) Mean Corpuscular Hemoglobin Concent 33 g/dL (31-37) Red Cell Distribution Width 13.5 % (11.5-14.5) Platelet Count 169 x10^3/uL (140-400) Neutrophils (%) (Auto) 78 % (31-73) Lymphocytes (%) (Auto) 12 % (24-48) Monocytes (%) (Auto) 9 % (0-9) Eosinophils (%) (Auto) 1 % (0-3) Basophils (%) (Auto) 0 % (0-3) Neutrophils # (Auto) 6.4 x10^3uL (1.8-7.7) Lymphocytes # (Auto) 1.0 x10^3/uL (1.0-4.8) Monocytes # (Auto) 0.7 x10^3/uL (0.0-1.1) Eosinophils # (Auto) 0.1 x10^3/uL (0.0-0.7) Basophils # (Auto) 0.0 x10^3/uL (0.0-0.2) Sodium Level 142 mmol/L (136-145) Potassium Level 4.4 mmol/L (3.5-5.1) Chloride Level 106 mmol/L (98-107) Carbon Dioxide Level 20 mmol/L (21-32) Anion Gap 16 (6-14) Blood Urea Nitrogen 20 mg/dL (8-26) Creatinine 1.0 mg/dL (0.7-1.3) Estimated GFR (Cockcroft-Gault) 73.7 Glucose Level 192 mg/dL (70-99) Calcium Level 8.8 mg/dL (8.5-10.1) Magnesium Level 1.9 mg/dL (1.8-2.4) Assessment and Plan Assessmemt and Plan Problems Medical Problems: (1) Atrial fibrillation with rapid ventricular response Status: Acute (2) Non-STEMI (non-ST elevated myocardial infarction) Status: Acute Comment Review of Relevant I have reviewed the following items rcistel (where applicable) has been applied. Labs Laboratory Tests Test 07/17/18 21:15 07/17/18 21:26 07/18/18 02:00 07/18/18 08:00 White Blood Count 7.3 x10^3/uL (4.0-11.0) Red Blood Count 5.48 x10^6/uL (4.30-5.70) Hemoglobin 16.0 g/dL (13.0-17.5) Hematocrit 47.9 % (39.0-53.0) Mean Corpuscular Volume 87 fL (79-100) Mean Corpuscular Hemoglobin 29 pg (25-35) Mean Corpuscular Hemoglobin Concent 33 g/dL (31-37) Red Cell Distribution Width 13.6 % (11.5-14.5) Platelet Count 187 x10^3/uL (140-400) Neutrophils (%) (Auto) 70 % (31-73) Lymphocytes (%) (Auto) 19 % (24-48) Monocytes (%) (Auto) 9 % (0-9) Eosinophils (%) (Auto) 1 % (0-3) Basophils (%) (Auto) 0 % (0-3) Neutrophils # (Auto) 5.1 x10^3uL (1.8-7.7) Lymphocytes # (Auto) 1.4 x10^3/uL (1.0-4.8) Monocytes # (Auto) 0.7 x10^3/uL (0.0-1.1) Eosinophils # (Auto) 0.1 x10^3/uL (0.0-0.7) Basophils # (Auto) 0.0 x10^3/uL (0.0-0.2) Prothrombin Time 27.3 SEC (11.7-14.0) Prothromb Time International Ratio 2.6 (0.8-1.1) Sodium Level 142 mmol/L (136-145) Potassium Level 4.8 mmol/L (3.5-5.1) Chloride Level 104 mmol/L (98-107) Carbon Dioxide Level 25 mmol/L (21-32) Anion Gap 13 (6-14) Blood Urea Nitrogen 19 mg/dL (8-26) Creatinine 1.4 mg/dL (0.7-1.3) Estimated GFR (Cockcroft-Gault) 50.0 BUN/Creatinine Ratio 14 (6-20) Glucose Level 219 mg/dL (70-99) Calcium Level 9.4 mg/dL (8.5-10.1) Magnesium Level 1.8 mg/dL (1.8-2.4) Total Bilirubin 0.7 mg/dL (0.2-1.0) Aspartate Amino Transf (AST/SGOT) 60 U/L (15-37) Alanine Aminotransferase (ALT/SGPT) 79 U/L (16-63) Alkaline Phosphatase 75 U/L (46-116) Creatine Kinase 88 U/L (39-308) Creatine Kinase MB (Mass) 6.4 ng/mL (0.0-3.6) Creatine Kinase MB Relative Index 7.3 % (0-4) Troponin I Quantitative 0.840 ng/mL (0.000-0.055) 7.839 ng/mL (0.000-0.055) 22.024 ng/mL (0.000-0.055) ER-Xbv-H-Type Natriuretic Peptide 1259 pg/mL (0-124) Total Protein 8.1 g/dL (6.4-8.2) Albumin 3.9 g/dL (3.4-5.0) Albumin/Globulin Ratio 0.9 (1.0-1.7) Lipase 206 U/L (73-393) Bedside Troponin I 0.25 ng/ml (<0.08) Test 07/18/18 12:47 07/18/18 17:05 07/18/18 21:47 07/19/18 07:45 Glucose (Fingerstick) 165 mg/dL (70-99) 177 mg/dL (70-99) 188 mg/dL (70-99) 158 mg/dL (70-99) Test 07/19/18 08:05 White Blood Count 8.3 x10^3/uL (4.0-11.0) Red Blood Count 5.20 x10^6/uL (4.30-5.70) Hemoglobin 15.1 g/dL (13.0-17.5) Hematocrit 45.5 % (39.0-53.0) Mean Corpuscular Volume 88 fL (79-100) Mean Corpuscular Hemoglobin 29 pg (25-35) Mean Corpuscular Hemoglobin Concent 33 g/dL (31-37) Red Cell Distribution Width 13.5 % (11.5-14.5) Platelet Count 169 x10^3/uL (140-400) Neutrophils (%) (Auto) 78 % (31-73) Lymphocytes (%) (Auto) 12 % (24-48) Monocytes (%) (Auto) 9 % (0-9) Eosinophils (%) (Auto) 1 % (0-3) Basophils (%) (Auto) 0 % (0-3) Neutrophils # (Auto) 6.4 x10^3uL (1.8-7.7) Lymphocytes # (Auto) 1.0 x10^3/uL (1.0-4.8) Monocytes # (Auto) 0.7 x10^3/uL (0.0-1.1) Eosinophils # (Auto) 0.1 x10^3/uL (0.0-0.7) Basophils # (Auto) 0.0 x10^3/uL (0.0-0.2) Sodium Level 142 mmol/L (136-145) Potassium Level 4.4 mmol/L (3.5-5.1) Chloride Level 106 mmol/L (98-107) Carbon Dioxide Level 20 mmol/L (21-32) Anion Gap 16 (6-14) Blood Urea Nitrogen 20 mg/dL (8-26) Creatinine 1.0 mg/dL (0.7-1.3) Estimated GFR (Cockcroft-Gault) 73.7 Glucose Level 192 mg/dL (70-99) Calcium Level 8.8 mg/dL (8.5-10.1) Magnesium Level 1.9 mg/dL (1.8-2.4) Laboratory Tests Test 07/18/18 12:47 07/18/18 17:05 07/18/18 21:47 07/19/18 07:45 Glucose (Fingerstick) 165 mg/dL (70-99) 177 mg/dL (70-99) 188 mg/dL (70-99) 158 mg/dL (70-99) Test 07/19/18 08:05 White Blood Count 8.3 x10^3/uL (4.0-11.0) Red Blood Count 5.20 x10^6/uL (4.30-5.70) Hemoglobin 15.1 g/dL (13.0-17.5) Hematocrit 45.5 % (39.0-53.0) Mean Corpuscular Volume 88 fL (79-100) Mean Corpuscular Hemoglobin 29 pg (25-35) Mean Corpuscular Hemoglobin Concent 33 g/dL (31-37) Red Cell Distribution Width 13.5 % (11.5-14.5) Platelet Count 169 x10^3/uL (140-400) Neutrophils (%) (Auto) 78 % (31-73) Lymphocytes (%) (Auto) 12 % (24-48) Monocytes (%) (Auto) 9 % (0-9) Eosinophils (%) (Auto) 1 % (0-3) Basophils (%) (Auto) 0 % (0-3) Neutrophils # (Auto) 6.4 x10^3uL (1.8-7.7) Lymphocytes # (Auto) 1.0 x10^3/uL (1.0-4.8) Monocytes # (Auto) 0.7 x10^3/uL (0.0-1.1) Eosinophils # (Auto) 0.1 x10^3/uL (0.0-0.7) Basophils # (Auto) 0.0 x10^3/uL (0.0-0.2) Sodium Level 142 mmol/L (136-145) Potassium Level 4.4 mmol/L (3.5-5.1) Chloride Level 106 mmol/L (98-107) Carbon Dioxide Level 20 mmol/L (21-32) Anion Gap 16 (6-14) Blood Urea Nitrogen 20 mg/dL (8-26) Creatinine 1.0 mg/dL (0.7-1.3) Estimated GFR (Cockcroft-Gault) 73.7 Glucose Level 192 mg/dL (70-99) Calcium Level 8.8 mg/dL (8.5-10.1) Magnesium Level 1.9 mg/dL (1.8-2.4) Medications Current Medications Aspirin (Children'S Aspirin) 324 mg 1X ONCE PO Last administered on at 21:35; Start 07/17/18 at 21:30; Stop 07/17/18 at 21:31; Status DC Adenosine (Adenocard) 18 mg 1X ONCE IV Last administered on 07/17/18at 21:40; Start 07/17/18 at 21:30; Stop 07/17/18 at 21:31; Status DC Diltiazem HCl (Cardizem) 25 mg STK-MED ONCE .ROUTE ; Start 07/17/18 at 21:46; Stop 07/17/18 at 21:47; Status DC Diltiazem HCl (Cardizem) 10 mg 1X ONCE IVP ; Start 07/17/18 at 22:00; Stop at 22:01; Status DC Diltiazem HCl 125 mg/Dextrose 125 ml @ 5 mls/hr 1X ONCE IV ; Start 07/17/18 at 22:00; Stop 07/18/18 at 22:59; Status DC Iodixanol (Visipaque 320) 100 ml STK-MED ONCE .ROUTE ; Start 07/18/18 at 10:01 ; Stop 07/18/18 at 10:02; Status DC Lidocaine HCl (Xylocaine-Mpf 1% 2ml Vial) 2 ml STK-MED ONCE .ROUTE ; Start at 10:01; Stop 07/18/18 at 10:02; Status DC Heparin Sodium/ Sodium Chloride 1,500 ml @ As Directed STK-MED ONCE .ROUTE ; Start 07/18/18 at 10:01; Stop 07/18/18 at 10:02; Status DC Fentanyl Citrate (Fentanyl 2ml Vial) 100 mcg STK-MED ONCE .ROUTE ; Start at 10:03; Stop 07/18/18 at 10:04; Status DC Midazolam HCl (Versed) 2 mg STK-MED ONCE .ROUTE ; Start 07/18/18 at 10:03; Stop 07/18/18 at 10:04; Status DC Heparin Sodium (Porcine) (Heparin Sodium) 10,000 unit STK-MED ONCE .ROUTE ; Start 07/18/18 at 10:03; Stop 07/18/18 at 10:04; Status DC Verapamil HCl (Verapamil) 5 mg STK-MED ONCE .ROUTE ; Start 07/18/18 at 10:03; Stop 07/18/18 at 10:04; Status DC Nitroglycerin (Nitroglycerin) 200 mcg STK-MED ONCE .ROUTE ; Start 07/18/18 at 10:03; Stop 07/18/18 at 10:04; Status DC Nitroglycerin (Nitroglycerin) 200 mcg 1X ONCE IART Last administered on at 12:18; Start 07/18/18 at 11:00; Stop 07/18/18 at 11:01; Status DC Verapamil HCl (Verapamil) 2.5 mg 1X ONCE IART Last administered on 07/18/18at 12:18; Start 07/18/18 at 11:00; Stop 07/18/18 at 11:01; Status DC Heparin Sodium (Porcine) (Heparin Sodium) 2,500 unit 1X ONCE IART Last administered on 07/18/18at 12:20; Start 07/18/18 at 11:00; Stop 07/18/18 at 11 :01; Status DC Heparin Sodium/ Sodium Chloride (HEPARIN for ARTERIAL LINE FLUSH) 1,000 unit 1X ONCE IART Last administered on 07/18/18at 12:15; Start 07/18/18 at 11:00; Stop 07/18/18 at 11:01; Status DC Aspirin (Children'S Aspirin) 81 mg DAILY PO Last administered on 07/19/18at 08: 29; Start 07/18/18 at 11:00 Carvedilol (Coreg) 12.5 mg BIDWMEALS PO Last administered on 07/18/18at 17:37; Start 07/18/18 at 11:00 Simvastatin (Zocor) 20 mg HS PO Last administered on 07/18/18at 21:34; Start 07/18/18 at 21:00 Insulin Human Lispro (HumaLOG) 0-5 UNITS TIDWMEALS SQ Last administered on at 08:31; Start 07/18/18 at 12:00 Dextrose (Dextrose 50%-Water Syringe) 12.5 gm PRN Q15MIN PRN IV SEE COMMENTS; Start 07/18/18 at 11:00 Atropine Sulfate (ATROPINE 1mg SYRINGE) 1 mg STK-MED ONCE .ROUTE ; Start at 11:00; Stop 07/18/18 at 11:01; Status DC Iodixanol (Visipaque 320) 100 ml STK-MED ONCE .ROUTE ; Start 07/18/18 at 11:44 ; Stop 07/18/18 at 11:45; Status DC Nitroglycerin (Nitroglycerin) 200 mcg STK-MED ONCE .ROUTE ; Start 07/18/18 at 11:56; Stop 07/18/18 at 11:57; Status DC Ticagrelor (Brilinta) 90 mg STK-MED ONCE .ROUTE ; Start 07/18/18 at 12:05; Stop 07/18/18 at 12:06; Status DC Heparin Sodium (Porcine) (Heparin Sodium) 10,000 unit STK-MED ONCE .ROUTE ; Start 07/18/18 at 12:06; Stop 07/18/18 at 12:07; Status DC Heparin Sodium/ Sodium Chloride (HEPARIN for ARTERIAL LINE FLUSH) 1,000 unit 1X ONCE IART ; Start 07/18/18 at 12:15; Stop 07/18/18 at 12:16; Status DC Midazolam HCl (Versed) 2 mg 1X ONCE IV Last administered on 07/18/18at 12:19; Start 07/18/18 at 12:15; Stop 07/18/18 at 12:16; Status DC Fentanyl Citrate (Fentanyl 2ml Vial) 75 mcg 1X ONCE IV Last administered on at 12:20; Start 07/18/18 at 12:15; Stop 07/18/18 at 12:16; Status DC Iodixanol (Visipaque 320) 164 ml 1X ONCE IART Last administered on 07/18/18at 12:16; Start 07/18/18 at 12:15; Stop 07/18/18 at 12:16; Status DC Ticagrelor (Brilinta) 180 mg 1X ONCE PO Last administered on 07/18/18at 12:22 ; Start 07/18/18 at 12:15; Stop 07/18/18 at 12:16; Status DC Heparin Sodium (Porcine) (Heparin Sodium) 8,000 unit 1X ONCE IV Last administered on 07/18/18at 12:22; Start 07/18/18 at 12:15; Stop 07/18/18 at 12 :16; Status DC Lidocaine HCl (Xylocaine-Mpf 1% 2ml Vial) 1 ml 1X ONCE INJ Last administered on 07/18/18at 12:17; Start 07/18/18 at 12:15; Stop 07/18/18 at 12:16; Status DC Sodium Chloride 1,000 ml @ 125 mls/hr 1X ONCE IV Last administered on at 12:22; Start 07/18/18 at 12:15; Stop 07/18/18 at 20:14; Status DC Ticagrelor (Brilinta) 90 mg BID PO ; Start 07/19/18 at 09:00; Status Cancel Ticagrelor (Brilinta) 90 mg BID PO Last administered on 07/19/18at 08:29; Start 07/18/18 at 21:00 Active Scripts Active Reported Losartan-Hctz 50-12.5 Mg Tab (Losartan/Hydrochlorothiazide) 1 Each Tablet 1 Tab PO DAILY Glyburide 1.25 Mg Tablet 2.5 Mg PO BID Metformin Hcl 500 Mg Tablet 850 Mg PO BID Aspirin 81 Mg Tab.chew 81 Mg PO DAILY Coumadin (Warfarin Sodium) 2 Mg Tablet 4 Mg PO DAILY Zocor (Simvastatin) 40 Mg Tablet 20 Mg PO DAILY Coreg (Carvedilol) 25 Mg Tablet 12.5 Mg PO BID Vitals/I & O Vital Sign - Last 24 Hours 10/07/18/18 07/18/18 07/18/18 12:18 12:20 12:28 12:45 Pulse 70 70 81 Resp 20 21 B/P (MAP) 149/88 (108) Pulse Ox 98 98 O2 Delivery Nasal Cannula Room Air O2 Flow Rate 2.0 07/18/18 07/18/18 07/18/18 07/18/18 12:50 13:00 13:15 13:30 Pulse 72 63 72 Resp 18 B/P (MAP) 121/76 (91) 146/74 (98) 152/97 (115) Pulse Ox 98 O2 Delivery Room Air 07/18/18 07/18/18 07/18/18 07/18/18 13:45 14:00 14:30 15:00 Pulse 58 76 63 76 B/P (MAP) 130/81 (97) 155/83 (107) 158/72 (100) 164/74 (104) 07/18/18 07/18/18 07/18/18 07/18/18 15:30 16:00 17:00 17:37 Temp 97.7 97.7 Pulse 76 79 61 61 Resp 18 B/P (MAP) 154/89 (110) 153/85 (107) 143/57 (85) 143/57 Pulse Ox 98 O2 Delivery Nasal Cannula O2 Flow Rate 2.0 07/18/18 07/18/18 07/18/18 07/19/18 19:50 20:00 23:00 03:55 Temp 98.0 97.4 98.0 98.0 97.4 98.0 Pulse 70 71 110 Resp 18 18 B/P (MAP) 109/69 (82) 115/66 (82) 95/71 (79) Pulse Ox 100 98 98 O2 Delivery Nasal Cannula Nasal Cannula Nasal Cannula Nasal Cannula O2 Flow Rate 2.0 2.0 2.0 2.0 07/19/18 07/19/18 07:10 08:00 Temp 97.4 97.4 Pulse 110 110 Resp 20 B/P (MAP) 99/58 (72) 99/58 Pulse Ox 98 O2 Delivery Nasal Cannula O2 Flow Rate 2.0 Intake and Output 07/18/18 07/18/18 07/19/18 15:00 23:00 07:00 Intake Total 1000 ml 400 ml Balance 1000 ml 400 ml SOFIA AL MD Jul 19, 2018 09:25
[2018-07-19 11:00] VITALS: BP 116/76
--- NOTE | 2018-07-19 12:21 | PDOC ---
CARDIOLOGY PROGRESS NOTE SUBJECTIVE: No acute events. Went into afib. Feels better w/o chest pain. OBJECTIVE: Vital SIgns: Vital Signs Date Time Temp Pulse Resp B/P (MAP) Pulse Ox O2 Delivery O2 Flow Rate FiO2 07/19/18 11:00 97.4 120 20 116/76 (89) 98 Nasal Cannula 2.0 97.4 I & O Intake and Output 07/19/18 07:00 Intake Total 1400 ml Balance 1400 ml Intake Oral 900 ml IV Total 500 ml # Voids 5 # Bowel Movements 3 Objective: Gen: A/o x 3. NAD CVS; Irr irr. no m/r/g PULM: mild wheezing. soft abd. CURRENT MEDICATIONS: Current Medications Medications (Trade) Dose Ordered Sig/Mykel Start Time Stop Time Status Last Admin Dose Admin Adenosine (Adenocard) 18 mg 1X ONCE 07/17/18 21:30 07/17/18 21:31 DC 07/17/18 21:40 18 MG Aspirin (Children'S Aspirin) 81 mg DAILY 07/18/18 11:00 07/19/18 08:29 81 MG Atorvastatin Calcium (Lipitor) 40 mg QHS 07/19/18 21:00 Atropine Sulfate (ATROPINE 1mg SYRINGE) 1 mg STK-MED ONCE 07/18/18 11:00 07/18/18 11:01 DC Carvedilol (Coreg) 12.5 mg BIDWMEALS 07/18/18 11:00 07/19/18 12:14 DC 07/18/18 17:37 12.5 MG Dextrose (Dextrose 50%-Water Syringe) 12.5 gm PRN Q15MIN PRN 07/18/18 11:00 Diltiazem HCl (Cardizem) 10 mg 1X ONCE 07/17/18 22:00 07/17/18 22:01 DC Diltiazem HCl 125 mg/Dextrose 125 ml @ 5 mls/hr 1X ONCE 07/17/18 22:00 07/18/18 22:59 DC Fentanyl Citrate (Fentanyl 2ml Vial) 75 mcg 1X ONCE 07/18/18 12:15 07/18/18 12:16 DC 07/18/18 12:20 75 MCG Heparin Sodium (Porcine) (Heparin Sodium) 8,000 unit 1X ONCE 07/18/18 12:15 07/18/18 12:16 DC 07/18/18 12:22 8,000 UNIT Heparin Sodium/ Sodium Chloride (HEPARIN for ARTERIAL LINE FLUSH) 1,000 unit 1X ONCE 07/18/18 12:15 07/18/18 12:16 DC Insulin Human Lispro (HumaLOG) 0-5 UNITS TIDWMEALS 07/18/18 12:00 07/19/18 08:31 2 UNITS Iodixanol (Visipaque 320) 164 ml 1X ONCE 07/18/18 12:15 07/18/18 12:16 DC 07/18/18 12:16 164 ML Lidocaine HCl (Xylocaine-Mpf 1% 2ml Vial) 1 ml 1X ONCE 07/18/18 12:15 07/18/18 12:16 DC 07/18/18 12:17 1 ML Metoprolol Tartrate (Lopressor) 25 mg Q6HRS 07/19/18 18:00 Midazolam HCl (Versed) 2 mg 1X ONCE 07/18/18 12:15 07/18/18 12:16 DC 07/18/18 12:19 2 MG Nitroglycerin (Nitroglycerin) 200 mcg STK-MED ONCE 07/18/18 11:56 07/18/18 11:57 DC Simvastatin (Zocor) 20 mg HS 07/18/18 21:00 07/19/18 12:14 DC 07/18/18 21:34 20 MG Sodium Chloride 1,000 ml @ 125 mls/hr 1X ONCE 07/18/18 12:15 07/18/18 20:14 DC 07/18/18 12:22 125 MLS/HR Ticagrelor (Brilinta) 90 mg BID 07/18/18 21:00 07/19/18 08:29 90 MG Verapamil HCl (Verapamil) 2.5 mg 1X ONCE 07/18/18 11:00 07/18/18 11:01 DC 07/18/18 12:18 5 MG DIAGNOSTIC TESTING: EKG normalized. ' ASSESSMENT: 1. NSTEMI s/p PCI of the RCA 2. HTN 3. Afib. PLAN: 1. Continue asa, ticagrelor and plan for changing to eliquis when INR less than 2. 2. Check troponin from morning labs. Supportive care. Thanks. MARIANGEL MCCLELLAND MD Jul 19, 2018 12:21
[2018-07-19] MEDS ORDERED: METOPROLOL TART IMMED RELEASE 25 MG TABLET. PO ONE (13:00)
[2018-07-19 15:00] VITALS: BP 102/59
[2018-07-19] MEDS: METOPROLOL TART IMMED RELEASE 25 MG TABLET. PO SCH (17:30)
[2018-07-19 19:00] VITALS: BP 113/66
[2018-07-19] MEDS ORDERED: ATORVASTATIN CALCIUM 40 MG TABLET. PO SCH (21:00)
[2018-07-19 22:35] VITALS: BP 120/69
[2018-07-20] MEDS: METOPROLOL TART IMMED RELEASE 25 MG TABLET. PO SCH ×3 (00:10→12:35)
[2018-07-20 03:00] VITALS: BP 131/72
[2018-07-20 06:51] LABS: PROTHROMBIN TIME PATIENT 23.7 SEC (11.7-14.0)
[2018-07-20 07:00] VITALS: BP 117/70
--- NOTE | 2018-07-20 07:49 | PDOC ---
PROGRESS NOTES Chief Complaint Chief Complaint NSTEMI Shortness of breath H/O CVA Afib DM HTN Renal insufficiency History of Present Illness History of Present Illness 73 year old male who presents with chest pain. This is been going on intermittently for the past 2 days, described as discomfort 6/10, non- radiating. Associated with palpitations and increased work of breathing, decreased exercise tolerance. The chest pain does improve when it is going on when he does rest. No orthopnea. No lower extremity swelling. Patient reports this pain is similar to the pain that he had with his previous heart attack. Patient also has a history of previous stroke with some residual aphasia, history obtained from his as well. In ED SVT was noted and initial dose of 6 mg of adenosine was administered without any significant change in the heart rate, a second dose of 12 mg of adenosine was administered that revealed an underlying fibrillation pattern. Patient's heart rate promptly returned to the 130s to 140s. As preparation was being made for diltiazem bolus and infusion, his heart rate slowed to the 80s and a repeat EKG was obtained that showed a heart rate of 69, normal axis, flipped T waves in the lateral leads as well as inferiorly. Cr noted at 1.4, blood counts normal. Mild transaminitis with ALT and AST elevated. Patient reported that his pain was improved. Consultation was made with Dr. Eldridge in cardiology who agreed with the plan. Troponin was elevated at 0.8. and continued to climb to 7.8 overnight and 22 yesterday morning to molder labels urgently s/p successful complex PCI of the proximal RCA with implantation of Resolute 4.0/26 mm SHALOM 07/18/18. Converted back to atrial fibrillation overnight on 07/18-07/19, started on metoprolol 25mg Q 6 hours with conversion back to sinus. Feeling well today, less short of breath. A/P: NSTEMI - with trop 22 and TWI, to molder labels urgently with 2 SHALOM, heparin, ASA, NTG, BB, brillinta. Cardiology consulted. For echo today/tomorrow Shortness of breath - likely cardiac wheezing, improved with afib control H/O CVA - with some aphasia. Will monitor neuro function, cont ASA, statin Afib - converted to sinus now. 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 Cont metoprolol for rate control, will likely need to D/c on 25mg BID DM - on metformin, glyburide, hold both, changed to SSI HTN - on metoprolol, will monitor as his BP dropped Renal insufficiency - acute with Cr 1.4, improved to 1 with fluids. Hold nephrotoxic meds Diet - cardiac carb consistent diet PPX - heparin, may reinitiate warfarin dependent on cardiology recs FULL CODE Admitted to CVICU for NSTEMI at least 2 midnights. Vitals Vitals Vital Signs Date Time Temp Pulse Resp B/P (MAP) Pulse Ox O2 Delivery O2 Flow Rate FiO2 07/20/18 07:00 96.5 56 18 117/70 (86) 99 Room Air 96.5 07/20/18 03:00 2.0 Physical Exam General: Alert, Cooperative, No acute distress Abdomen: Normal bowel sounds, Soft, No tenderness, No hepatosplenomegaly, No masses Extremities: No clubbing, No cyanosis, No edema, Normal pulses, No tenderness/ swelling Skin: No rashes, No breakdown, No significant lesion Labs LABS Laboratory Tests Test 07/19/18 08:05 07/19/18 17:20 07/19/18 21:06 07/20/18 06:10 White Blood Count 8.3 x10^3/uL (4.0-11.0) Red Blood Count 5.20 x10^6/uL (4.30-5.70) Hemoglobin 15.1 g/dL (13.0-17.5) Hematocrit 45.5 % (39.0-53.0) Mean Corpuscular Volume 88 fL (79-100) Mean Corpuscular Hemoglobin 29 pg (25-35) Mean Corpuscular Hemoglobin Concent 33 g/dL (31-37) Red Cell Distribution Width 13.5 % (11.5-14.5) Platelet Count 169 x10^3/uL (140-400) Neutrophils (%) (Auto) 78 % (31-73) Lymphocytes (%) (Auto) 12 % (24-48) Monocytes (%) (Auto) 9 % (0-9) Eosinophils (%) (Auto) 1 % (0-3) Basophils (%) (Auto) 0 % (0-3) Neutrophils # (Auto) 6.4 x10^3uL (1.8-7.7) Lymphocytes # (Auto) 1.0 x10^3/uL (1.0-4.8) Monocytes # (Auto) 0.7 x10^3/uL (0.0-1.1) Eosinophils # (Auto) 0.1 x10^3/uL (0.0-0.7) Basophils # (Auto) 0.0 x10^3/uL (0.0-0.2) Sodium Level 142 mmol/L (136-145) Potassium Level 4.4 mmol/L (3.5-5.1) Chloride Level 106 mmol/L (98-107) Carbon Dioxide Level 20 mmol/L (21-32) Anion Gap 16 (6-14) Blood Urea Nitrogen 20 mg/dL (8-26) Creatinine 1.0 mg/dL (0.7-1.3) Estimated GFR (Cockcroft-Gault) 73.7 Glucose Level 192 mg/dL (70-99) Calcium Level 8.8 mg/dL (8.5-10.1) Magnesium Level 1.9 mg/dL (1.8-2.4) Glucose (Fingerstick) 150 mg/dL (70-99) 174 mg/dL (70-99) Prothrombin Time 23.7 SEC (11.7-14.0) Prothromb Time International Ratio 2.2 (0.8-1.1) Assessment and Plan Assessmemt and Plan Problems Medical Problems: (1) Atrial fibrillation with rapid ventricular response Status: Acute (2) Non-STEMI (non-ST elevated myocardial infarction) Status: Acute Comment Review of Relevant I have reviewed the following items cristel (where applicable) has been applied. Labs Laboratory Tests Test 07/18/18 08:00 07/18/18 12:47 07/18/18 17:05 07/18/18 21:47 Troponin I Quantitative 22.024 ng/mL (0.000-0.055) Glucose (Fingerstick) 165 mg/dL (70-99) 177 mg/dL (70-99) 188 mg/dL (70-99) Test 07/19/18 07:45 07/19/18 08:05 07/19/18 17:20 07/19/18 21:06 Glucose (Fingerstick) 158 mg/dL (70-99) 150 mg/dL (70-99) 174 mg/dL (70-99) White Blood Count 8.3 x10^3/uL (4.0-11.0) Red Blood Count 5.20 x10^6/uL (4.30-5.70) Hemoglobin 15.1 g/dL (13.0-17.5) Hematocrit 45.5 % (39.0-53.0) Mean Corpuscular Volume 88 fL (79-100) Mean Corpuscular Hemoglobin 29 pg (25-35) Mean Corpuscular Hemoglobin Concent 33 g/dL (31-37) Red Cell Distribution Width 13.5 % (11.5-14.5) Platelet Count 169 x10^3/uL (140-400) Neutrophils (%) (Auto) 78 % (31-73) Lymphocytes (%) (Auto) 12 % (24-48) Monocytes (%) (Auto) 9 % (0-9) Eosinophils (%) (Auto) 1 % (0-3) Basophils (%) (Auto) 0 % (0-3) Neutrophils # (Auto) 6.4 x10^3uL (1.8-7.7) Lymphocytes # (Auto) 1.0 x10^3/uL (1.0-4.8) Monocytes # (Auto) 0.7 x10^3/uL (0.0-1.1) Eosinophils # (Auto) 0.1 x10^3/uL (0.0-0.7) Basophils # (Auto) 0.0 x10^3/uL (0.0-0.2) Sodium Level 142 mmol/L (136-145) Potassium Level 4.4 mmol/L (3.5-5.1) Chloride Level 106 mmol/L (98-107) Carbon Dioxide Level 20 mmol/L (21-32) Anion Gap 16 (6-14) Blood Urea Nitrogen 20 mg/dL (8-26) Creatinine 1.0 mg/dL (0.7-1.3) Estimated GFR (Cockcroft-Gault) 73.7 Glucose Level 192 mg/dL (70-99) Calcium Level 8.8 mg/dL (8.5-10.1) Magnesium Level 1.9 mg/dL (1.8-2.4) Test 07/20/18 06:10 Prothrombin Time 23.7 SEC (11.7-14.0) Prothromb Time International Ratio 2.2 (0.8-1.1) Laboratory Tests Test 07/19/18 08:05 07/19/18 17:20 07/19/18 21:06 07/20/18 06:10 White Blood Count 8.3 x10^3/uL (4.0-11.0) Red Blood Count 5.20 x10^6/uL (4.30-5.70) Hemoglobin 15.1 g/dL (13.0-17.5) Hematocrit 45.5 % (39.0-53.0) Mean Corpuscular Volume 88 fL (79-100) Mean Corpuscular Hemoglobin 29 pg (25-35) Mean Corpuscular Hemoglobin Concent 33 g/dL (31-37) Red Cell Distribution Width 13.5 % (11.5-14.5) Platelet Count 169 x10^3/uL (140-400) Neutrophils (%) (Auto) 78 % (31-73) Lymphocytes (%) (Auto) 12 % (24-48) Monocytes (%) (Auto) 9 % (0-9) Eosinophils (%) (Auto) 1 % (0-3) Basophils (%) (Auto) 0 % (0-3) Neutrophils # (Auto) 6.4 x10^3uL (1.8-7.7) Lymphocytes # (Auto) 1.0 x10^3/uL (1.0-4.8) Monocytes # (Auto) 0.7 x10^3/uL (0.0-1.1) Eosinophils # (Auto) 0.1 x10^3/uL (0.0-0.7) Basophils # (Auto) 0.0 x10^3/uL (0.0-0.2) Sodium Level 142 mmol/L (136-145) Potassium Level 4.4 mmol/L (3.5-5.1) Chloride Level 106 mmol/L (98-107) Carbon Dioxide Level 20 mmol/L (21-32) Anion Gap 16 (6-14) Blood Urea Nitrogen 20 mg/dL (8-26) Creatinine 1.0 mg/dL (0.7-1.3) Estimated GFR (Cockcroft-Gault) 73.7 Glucose Level 192 mg/dL (70-99) Calcium Level 8.8 mg/dL (8.5-10.1) Magnesium Level 1.9 mg/dL (1.8-2.4) Glucose (Fingerstick) 150 mg/dL (70-99) 174 mg/dL (70-99) Prothrombin Time 23.7 SEC (11.7-14.0) Prothromb Time International Ratio 2.2 (0.8-1.1) Medications Current Medications Aspirin (Children'S Aspirin) 324 mg 1X ONCE PO Last administered on at 21:35; Start 07/17/18 at 21:30; Stop 07/17/18 at 21:31; Status DC Adenosine (Adenocard) 18 mg 1X ONCE IV Last administered on 07/17/18at 21:40; Start 07/17/18 at 21:30; Stop 07/17/18 at 21:31; Status DC Diltiazem HCl (Cardizem) 25 mg STK-MED ONCE .ROUTE ; Start 07/17/18 at 21:46; Stop 07/17/18 at 21:47; Status DC Diltiazem HCl (Cardizem) 10 mg 1X ONCE IVP ; Start 07/17/18 at 22:00; Stop at 22:01; Status DC Diltiazem HCl 125 mg/Dextrose 125 ml @ 5 mls/hr 1X ONCE IV ; Start 07/17/18 at 22:00; Stop 07/18/18 at 22:59; Status DC Iodixanol (Visipaque 320) 100 ml STK-MED ONCE .ROUTE ; Start 07/18/18 at 10:01 ; Stop 07/18/18 at 10:02; Status DC Lidocaine HCl (Xylocaine-Mpf 1% 2ml Vial) 2 ml STK-MED ONCE .ROUTE ; Start at 10:01; Stop 07/18/18 at 10:02; Status DC Heparin Sodium/ Sodium Chloride 1,500 ml @ As Directed STK-MED ONCE .ROUTE ; Start 07/18/18 at 10:01; Stop 07/18/18 at 10:02; Status DC Fentanyl Citrate (Fentanyl 2ml Vial) 100 mcg STK-MED ONCE .ROUTE ; Start at 10:03; Stop 07/18/18 at 10:04; Status DC Midazolam HCl (Versed) 2 mg STK-MED ONCE .ROUTE ; Start 07/18/18 at 10:03; Stop 07/18/18 at 10:04; Status DC Heparin Sodium (Porcine) (Heparin Sodium) 10,000 unit STK-MED ONCE .ROUTE ; Start 07/18/18 at 10:03; Stop 07/18/18 at 10:04; Status DC Verapamil HCl (Verapamil) 5 mg STK-MED ONCE .ROUTE ; Start 07/18/18 at 10:03; Stop 07/18/18 at 10:04; Status DC Nitroglycerin (Nitroglycerin) 200 mcg STK-MED ONCE .ROUTE ; Start 07/18/18 at 10:03; Stop 07/18/18 at 10:04; Status DC Nitroglycerin (Nitroglycerin) 200 mcg 1X ONCE IART Last administered on at 12:18; Start 07/18/18 at 11:00; Stop 07/18/18 at 11:01; Status DC Verapamil HCl (Verapamil) 2.5 mg 1X ONCE IART Last administered on 07/18/18at 12:18; Start 07/18/18 at 11:00; Stop 07/18/18 at 11:01; Status DC Heparin Sodium (Porcine) (Heparin Sodium) 2,500 unit 1X ONCE IART Last administered on 07/18/18at 12:20; Start 07/18/18 at 11:00; Stop 07/18/18 at 11 :01; Status DC Heparin Sodium/ Sodium Chloride (HEPARIN for ARTERIAL LINE FLUSH) 1,000 unit 1X ONCE IART Last administered on 07/18/18at 12:15; Start 07/18/18 at 11:00; Stop 07/18/18 at 11:01; Status DC Aspirin (Children'S Aspirin) 81 mg DAILY PO Last administered on 07/19/18at 08: 29; Start 07/18/18 at 11:00 Carvedilol (Coreg) 12.5 mg BIDWMEALS PO Last administered on 07/18/18at 17:37; Start 07/18/18 at 11:00; Stop 07/19/18 at 12:14; Status DC Simvastatin (Zocor) 20 mg HS PO Last administered on 07/18/18at 21:34; Start 07/18/18 at 21:00; Stop 07/19/18 at 12:14; Status DC Insulin Human Lispro (HumaLOG) 0-5 UNITS TIDWMEALS SQ Last administered on at 12:36; Start 07/18/18 at 12:00 Dextrose (Dextrose 50%-Water Syringe) 12.5 gm PRN Q15MIN PRN IV SEE COMMENTS; Start 07/18/18 at 11:00 Atropine Sulfate (ATROPINE 1mg SYRINGE) 1 mg STK-MED ONCE .ROUTE ; Start at 11:00; Stop 07/18/18 at 11:01; Status DC Iodixanol (Visipaque 320) 100 ml STK-MED ONCE .ROUTE ; Start 07/18/18 at 11:44 ; Stop 07/18/18 at 11:45; Status DC Nitroglycerin (Nitroglycerin) 200 mcg STK-MED ONCE .ROUTE ; Start 07/18/18 at 11:56; Stop 07/18/18 at 11:57; Status DC Ticagrelor (Brilinta) 90 mg STK-MED ONCE .ROUTE ; Start 07/18/18 at 12:05; Stop 07/18/18 at 12:06; Status DC Heparin Sodium (Porcine) (Heparin Sodium) 10,000 unit STK-MED ONCE .ROUTE ; Start 07/18/18 at 12:06; Stop 07/18/18 at 12:07; Status DC Heparin Sodium/ Sodium Chloride (HEPARIN for ARTERIAL LINE FLUSH) 1,000 unit 1X ONCE IART ; Start 07/18/18 at 12:15; Stop 07/18/18 at 12:16; Status DC Midazolam HCl (Versed) 2 mg 1X ONCE IV Last administered on 07/18/18at 12:19; Start 07/18/18 at 12:15; Stop 07/18/18 at 12:16; Status DC Fentanyl Citrate (Fentanyl 2ml Vial) 75 mcg 1X ONCE IV Last administered on at 12:20; Start 07/18/18 at 12:15; Stop 07/18/18 at 12:16; Status DC Iodixanol (Visipaque 320) 164 ml 1X ONCE IART Last administered on 07/18/18at 12:16; Start 07/18/18 at 12:15; Stop 07/18/18 at 12:16; Status DC Ticagrelor (Brilinta) 180 mg 1X ONCE PO Last administered on 07/18/18at 12:22 ; Start 07/18/18 at 12:15; Stop 07/18/18 at 12:16; Status DC Heparin Sodium (Porcine) (Heparin Sodium) 8,000 unit 1X ONCE IV Last administered on 07/18/18at 12:22; Start 07/18/18 at 12:15; Stop 07/18/18 at 12 :16; Status DC Lidocaine HCl (Xylocaine-Mpf 1% 2ml Vial) 1 ml 1X ONCE INJ Last administered on 07/18/18at 12:17; Start 07/18/18 at 12:15; Stop 07/18/18 at 12:16; Status DC Sodium Chloride 1,000 ml @ 125 mls/hr 1X ONCE IV Last administered on at 12:22; Start 07/18/18 at 12:15; Stop 07/18/18 at 20:14; Status DC Ticagrelor (Brilinta) 90 mg BID PO ; Start 07/19/18 at 09:00; Status Cancel Ticagrelor (Brilinta) 90 mg BID PO Last administered on 07/19/18at 21:01; Start 07/18/18 at 21:00 Metoprolol Tartrate (Lopressor) 25 mg Q6HRS PO Last administered on 07/20/18at 05:55; Start 07/19/18 at 18:00 Atorvastatin Calcium (Lipitor) 40 mg QHS PO Last administered on 07/19/18at 21: 01; Start 07/19/18 at 21:00 Metoprolol Tartrate (Lopressor) 25 mg 1X ONCE PO Last administered on at 12:36; Start 07/19/18 at 13:00; Stop 07/19/18 at 13:01; Status DC Active Scripts Active Reported Losartan-Hctz 50-12.5 Mg Tab (Losartan/Hydrochlorothiazide) 1 Each Tablet 1 Tab PO DAILY Glyburide 1.25 Mg Tablet 2.5 Mg PO BID Metformin Hcl 500 Mg Tablet 850 Mg PO BID Aspirin 81 Mg Tab.chew 81 Mg PO DAILY Coumadin (Warfarin Sodium) 2 Mg Tablet 4 Mg PO DAILY Zocor (Simvastatin) 40 Mg Tablet 20 Mg PO DAILY Coreg (Carvedilol) 25 Mg Tablet 12.5 Mg PO BID Vitals/I & O Vital Sign - Last 24 Hours 07/19/18 07/19/18 07/19/18 07/19/18 08:00 11:00 12:36 15:00 Temp 97.4 97.7 97.4 97.7 Pulse 110 120 120 63 Resp 18 B/P (MAP) 99/58 116/76 (89) 116/76 102/59 (73) Pulse Ox 98 99 O2 Delivery Nasal Cannula Nasal Cannula O2 Flow Rate 2.0 2.0 07/19/18 07/19/18 07/19/18 07/19/18 17:30 19:00 20:00 22:35 Temp 98.0 97.9 98.0 97.9 Pulse 63 71 64 Resp 22 B/P (MAP) 102/59 113/66 (82) 120/69 (86) Pulse Ox 98 98 O2 Delivery Nasal Cannula Nasal Cannula Nasal Cannula O2 Flow Rate 2.0 2.0 07/20/18 07/20/18 07/20/18 07/20/18 00:10 03:00 05:55 07:00 Temp 98.3 96.5 98.3 96.5 Pulse 64 52 52 56 Resp 18 B/P (MAP) 120/69 131/72 (91) 131/72 117/70 (86) Pulse Ox 98 99 O2 Delivery Nasal Cannula Room Air O2 Flow Rate 2.0 Intake and Output 07/19/18 07/19/18 07/20/18 15:00 23:00 07:00 Intake Total 400 ml 600 ml 400 ml Balance 400 ml 600 ml 400 ml SOFIA AL MD Jul 20, 2018 07:49
[2018-07-20] MEDS: TICAGRELOR 90 MG TABLET. PO SCH (08:44)
[2018-07-20] MEDS: ASPIRIN CHEWABLE 81 MG TABLET. PO SCH (08:44)
[2018-07-20] MEDS: INSULIN LISPRO 300 UNITS/3 ML INSULN.PEN. SQ SCH ×3 (08:49→17:36)
[2018-07-20 10:59] VITALS: BP 118/67
[2018-07-20] MEDS ORDERED: ANTI-COAG MONITOR BY PHARMACY. MC PRN (14:15)
--- NOTE | 2018-07-20 14:16 | PDOC ---
CHASE LUNA FARM TECHNICIAN 07/20/18 1415: CARDIO Progress Notes Date and Time Date of Service 07/20/18 Time of Evaluation 1135 Subjective Subjective: No Chest Pain, No shortness of breath, No Palpitations Vitals Vitals Vital Signs Date Time Temp Pulse Resp B/P (MAP) Pulse Ox O2 Delivery O2 Flow Rate FiO2 07/20/18 13:25 Nasal Cannula 2.0 07/20/18 12:35 64 118/67 07/20/18 10:59 97.6 21 100 97.6 Weight Weight [ ] Input and Output Intake and Output Intake and Output 07/20/18 07:00 Intake Total 1400 ml Balance 1400 ml Intake Oral 1400 ml # Voids 5 # Bowel Movements 2 Laboratory Labs Laboratory Tests Test 07/19/18 17:20 07/19/18 21:06 07/20/18 06:10 07/20/18 07:49 Glucose (Fingerstick) 150 mg/dL (70-99) 174 mg/dL (70-99) 182 mg/dL (70-99) Prothrombin Time 23.7 SEC (11.7-14.0) Prothromb Time International Ratio 2.2 (0.8-1.1) Test 07/20/18 12:07 Glucose (Fingerstick) 182 mg/dL (70-99) Physical Exam HEENT: Neck Supple W Full Motion Chest: Symmetric LUNGS: Clear to Auscultation Heart: S1S2, RRR (tele SB rate 55.), other (tele noted with occasional bursts of AFIB with RVR. Otherwise resting HR in mid-50's.) Abdomen: Soft N/T Extremities: No Edema, Other (right radial arteriotomy site soft, CDI. No hematoma present. Neurovascular status intact. ) Neurology: alert, oriented, follow commands Assessment Assessment 1. CAD s/p PCI/SHALOM to RCA. 2. PAFIB; maintaining SB with occasional bursts of AFIB with RVR 3. Hypertension 4. Dyslipidemia 5. Diabetes 6. H/o CVA Recommendations Secondary prevention measures including anti-platelet therapy with Brilinta. No ASA as patient is on Eliquis for PAFIB. Metoprolol for rate control Start Eliquis for stroke prevention. Check lipids. Obtain echo to asses LV function. Cardiac rehab referral Risk stratification modification Will arrange for event monitor to assess for significant tachyarrhythmias. MARIANGEL MCCLELLAND MD 07/20/18 1426: CARDIO Progress Notes Plan Plan Pt. seen and examined. Agree with above PUMPER HAND note. home on ticagrelor and eliquis. No asa, Supportive care. Will f/u in 4 weeks. CHASE LUNA APRN Jul 20, 2018 14:15 MARIANGEL MCCLELLAND MD Jul 20, 2018 14:26
[2018-07-20] MEDS ORDERED: APIXABAN 5 MG TABLET. PO SCH (14:30)
[2018-07-20 14:32] LABS: CHOLESTEROL/HDL RATIO 3.2
[2018-07-20 15:00] VITALS: BP 150/92
--- NOTE | 2018-07-20 16:30 | PDOC3 ---
Discharge Summary Visit Information Date of Admission: Jul 17, 2018 Date of Discharge: Jul 20, 2018 Admitting Diagnosis: NSTEMI Final Diagnosis Problems Medical Problems: (1) Atrial fibrillation with rapid ventricular response Status: Acute (2) Non-STEMI (non-ST elevated myocardial infarction) Status: Acute Brief Hospital Course Allergies Allergies Coded Allergies Type Severity Reaction Last Updated Verified No Known Drug Allergies 02/20/14 No Vital Signs Vital Signs Date Time Temp Pulse Resp B/P (MAP) Pulse Ox O2 Delivery O2 Flow Rate FiO2 07/20/18 15:00 97.1 68 150/92 (111) 99 Room Air 97.1 07/20/18 13:25 2.0 07/20/18 10:59 21 Lab Results Laboratory Tests Test 07/18/18 17:05 07/18/18 21:47 07/19/18 07:45 07/19/18 08:05 Glucose (Fingerstick) 177 mg/dL (70-99) 188 mg/dL (70-99) 158 mg/dL (70-99) White Blood Count 8.3 x10^3/uL (4.0-11.0) Red Blood Count 5.20 x10^6/uL (4.30-5.70) Hemoglobin 15.1 g/dL (13.0-17.5) Hematocrit 45.5 % (39.0-53.0) Mean Corpuscular Volume 88 fL (79-100) Mean Corpuscular Hemoglobin 29 pg (25-35) Mean Corpuscular Hemoglobin Concent 33 g/dL (31-37) Red Cell Distribution Width 13.5 % (11.5-14.5) Platelet Count 169 x10^3/uL (140-400) Neutrophils (%) (Auto) 78 % (31-73) Lymphocytes (%) (Auto) 12 % (24-48) Monocytes (%) (Auto) 9 % (0-9) Eosinophils (%) (Auto) 1 % (0-3) Basophils (%) (Auto) 0 % (0-3) Neutrophils # (Auto) 6.4 x10^3uL (1.8-7.7) Lymphocytes # (Auto) 1.0 x10^3/uL (1.0-4.8) Monocytes # (Auto) 0.7 x10^3/uL (0.0-1.1) Eosinophils # (Auto) 0.1 x10^3/uL (0.0-0.7) Basophils # (Auto) 0.0 x10^3/uL (0.0-0.2) Sodium Level 142 mmol/L (136-145) Potassium Level 4.4 mmol/L (3.5-5.1) Chloride Level 106 mmol/L (98-107) Carbon Dioxide Level 20 mmol/L (21-32) Anion Gap 16 (6-14) Blood Urea Nitrogen 20 mg/dL (8-26) Creatinine 1.0 mg/dL (0.7-1.3) Estimated GFR (Cockcroft-Gault) 73.7 Glucose Level 192 mg/dL (70-99) Calcium Level 8.8 mg/dL (8.5-10.1) Magnesium Level 1.9 mg/dL (1.8-2.4) Test 07/19/18 17:20 07/19/18 21:06 07/20/18 06:10 07/20/18 07:49 Glucose (Fingerstick) 150 mg/dL (70-99) 174 mg/dL (70-99) 182 mg/dL (70-99) Prothrombin Time 23.7 SEC (11.7-14.0) Prothromb Time International Ratio 2.2 (0.8-1.1) Triglycerides Level 121 mg/dL (0-150) Cholesterol Level 93 mg/dL (0-200) LDL Cholesterol, Calculated 40 mg/dL (0-100) VLDL Cholesterol, Calculated 24 mg/dL (0-40) Non-HDL Cholesterol Calculated 64 mg/dL (0-129) HDL Cholesterol 29 mg/dL (40-60) Cholesterol/HDL Ratio 3.2 Test 07/20/18 12:07 Glucose (Fingerstick) 182 mg/dL (70-99) Laboratory Tests Test 07/19/18 17:20 07/19/18 21:06 07/20/18 06:10 07/20/18 07:49 Glucose (Fingerstick) 150 mg/dL (70-99) 174 mg/dL (70-99) 182 mg/dL (70-99) Prothrombin Time 23.7 SEC (11.7-14.0) Prothromb Time International Ratio 2.2 (0.8-1.1) Triglycerides Level 121 mg/dL (0-150) Cholesterol Level 93 mg/dL (0-200) LDL Cholesterol, Calculated 40 mg/dL (0-100) VLDL Cholesterol, Calculated 24 mg/dL (0-40) Non-HDL Cholesterol Calculated 64 mg/dL (0-129) HDL Cholesterol 29 mg/dL (40-60) Cholesterol/HDL Ratio 3.2 Test 07/20/18 12:07 Glucose (Fingerstick) 182 mg/dL (70-99) Brief Hospital Course 73 year old male who presents with chest pain. This is been going on intermittently for the past 2 days, described as discomfort 6/10, non- radiating. Associated with palpitations and increased work of breathing, decreased exercise tolerance. The chest pain does improve when it is going on when he does rest. No orthopnea. No lower extremity swelling. Patient reports this pain is similar to the pain that he had with his previous heart attack. Patient also has a history of previous stroke with some residual aphasia, history obtained from his as well. In ED SVT was noted and initial dose of 6 mg of adenosine was administered without any significant change in the heart rate, a second dose of 12 mg of adenosine was administered that revealed an underlying fibrillation pattern. Patient's heart rate promptly returned to the 130s to 140s. As preparation was being made for diltiazem bolus and infusion, his heart rate slowed to the 80s and a repeat EKG was obtained that showed a heart rate of 69, normal axis, flipped T waves in the lateral leads as well as inferiorly. Cr noted at 1.4, blood counts normal. Mild transaminitis with ALT and AST elevated. Patient reported that his pain was improved. Consultation was made with Dr. Eldridge in cardiology who agreed with the plan. Troponin was elevated at 0.8. and continued to climb to 7.8 overnight and 22 yesterday morning to laborer aquatic life urgently s/p successful complex PCI of the proximal RCA with implantation of Resolute 4.0/26 mm SHALOM 07/18/18. Converted back to atrial fibrillation overnight on 07/18-07/19, started on metoprolol 25mg Q 6 hours with conversion back to sinus. Feeling well today, less short of breath. A/P: NSTEMI - with trop 22 and TWI, to laborer aquatic life urgently with 2 SHALOM, heparin, ASA, NTG, BB, brillinta. Cardiology consulted. For echo today, not read as of yet, but symptomatically he feels much better and has a shelter monitor to go home with per cards. Shortness of breath - likely cardiac wheezing, improved with afib control H/O CVA - with some aphasia. Will monitor neuro function, cont ASA, statin Afib - converted to sinus now. 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 Cont metoprolol for rate control, will likely need to D/c on 25mg BID DM - on metformin, glyburide, hold both, changed to SSI HTN - on metoprolol, will monitor as his BP dropped Renal insufficiency - acute with Cr 1.4, improved to 1 with fluids. Hold nephrotoxic meds Diet - cardiac carb consistent diet PPX - heparin, may reinitiate warfarin dependent on cardiology recs FULL CODE Admitted to CVICU for NSTEMI can d/c home today Discharge Information Scheduled Aspirin (Aspirin) 81 Mg Tab.chew, 81 MG PO DAILY, (Reported) Entered as Reported by: BLAINE BIRMINGHAM on 02/20/14 1635 Last Action: Continued on 07/18/18 1054 by SOFIA AL MD Carvedilol (Coreg) 25 Mg Tablet, 12.5 MG PO BID, (Reported) Entered as Reported by: BLAINE BIRMINGHAM on 02/20/14 1635 Last Action: Converted on 07/18/18 1054 by SOFIA AL MD Glyburide (Glyburide) 1.25 Mg Tablet, 2.5 MG PO BID, (Reported) Entered as Reported by: BLAINE BIRMINGHAM on 02/20/14 1635 Last Action: HELD on 07/18/18 1053 by SOFIA AL MD Losartan/Hydrochlorothiazide (Losartan-Hctz 50-12.5 Mg Tab) 1 Each Tablet, 1 TAB PO DAILY, #30 Ref 5 (Reported) Entered as Reported by: Donald Scott on 07/18/18 0000 Last Action: HELD on 07/18/18 1053 by SOFIA AL MD Metformin Hcl (Metformin Hcl) 500 Mg Tablet, 850 MG PO BID, (Reported) Entered as Reported by: BLAINE [place]ING[place] on 02/20/14 1635 Last Action: HELD on 07/18/18 105 by SOFIA AL MD Simvastatin (Zocor) 40 Mg Tablet, 20 MG PO DAILY, #30 Ref 0 (Reported) Entered as Reported by: BLAINE [place]ING[place] on 02/20/141634 Last Action: Converted on 07/18/18 105 by SOFIA AL MD Warfarin Sodium (Coumadin) 2 Mg Tablet, 4 MG PO DAILY, (Reported) Entered as Reported by: BLAINE [place] on 02/20/141634 Last Action: HELD on 07/18/18 105 by SOFIA AL MD Discontinued Medications Valsartan (Diovan) 160 Mg Tablet, 160 MG PO, (Reported) Entered as Reported by: BLAINE [place] on 02/20/141634 Last Action: Discontinued on 07/18/18 0000 by SOFIA Mullins MD Jul 20, 2018 16:30
[2018-07-20] MEDS ORDERED: METO50TA6 PO (16:32)
[2018-07-20] MEDS ORDERED: APIX5TAB PO (16:32)
[2018-07-20] MEDS ORDERED: ATOR40TA59 PO (16:32)
[2018-07-20] MEDS ORDERED: TICA90TA PO (16:32)
[2018-07-20] MEDS ORDERED: METOPROLOL TART IMMED RELEASE 50 MG TABLET. PO ONE (17:30)
[2018-07-20 17:32] VITALS: BP 150/92
[2018-07-20] MEDS ORDERED: METOPROLOL TART IMMED RELEASE 50 MG TABLET. PO SCH (21:00)
--- NOTE | 2018-07-21 09:16 | CARD ---
MR#: [id number] Date of Study: 07/20/2018 Ordering Physician: CHASE LUNA, Referring Physician: ARMANDO EASON, Tech: [place] Rojas APPROVED REPORT EXAM: Two-dimensional and M-mode echocardiogram with Doppler and color Doppler. Other Information Quality : AverageHR: 54bpm INDICATION Non STEMI RISK FACTORS Hyperlipidemia Diabetes 2D DIMENSIONS RVDd2.2 (2.9-3.5cm)Left Atrium(2D)3.8 (1.6-4.0cm) IVSd0.8 (0.7-1.1cm)Aortic Root(2D)3.4 (2.0-3.7cm) LVDd5.4 (3.9-5.9cm)LVOT Diameter2.2 (1.8-2.4cm) PWd1.1 (0.7-1.1cm)LVDs3.0 (2.5-4.0cm) FS (%) 45.6 %SV109.6 ml LVEF(%)76.4 (>50%) Aortic Valve AoV Peak Yevgeniy.119.0cm/sAoV VTI23.8cm AO Peak GR.5.7mmHgLVOT Peak Yevgeniy.65.7cm/s LVOT VTI 12.93cmAO Mean GR.3mmHg BECK (VMAX)1.42cq0YND (VTI)2.06cm2 Mitral Valve MV E Jbgomdlh91.2cm/sMV DECEL CLMN911bv MV A Eefvaakm99.9cm/sMV HIV14ry E/A Ratio1.6MVA (PHT)4.50cm2 TDI E/Lateral E'12.3E/Medial E'14.5 Pulmonary Valve PV Peak Wbteyxin97.2cm/sPV Peak Grad.1mmHg Tricuspid Valve TR P. Owbeiwmc999bn/sRAP OADKIQAI0elNs TR Peak Gr.60niPcZXWH41xnLk Pulmonary Vein D2 Xswhseew10.2cm/sPVa [id number] LEFT VENTRICLE The left ventricle is normal size. There is normal left ventricular wall thickness. The systolic func tion is severely impaired. EF 20% There is global hypokinesis of the left ventricle with predominance in the anterior and apical de la torre. Transmitral Doppler flow pattern is Grade II-pseudonormal filling dynamics. RIGHT VENTRICLE The right ventricle is normal size. There is normal right ventricular wall thickness. The right ventr icular systolic function is normal. ATRIA The left atrium size is normal. The right atrium size is normal. The interatrial septum is intact wit h no evidence for an atrial septal defect or patent foramen ovale as noted on 2-D or Doppler imaging. AORTIC VALVE The aortic valve is normal in structure and function. Doppler and Color Flow revealed trace aortic re gurgitation. Calculated aortic valve area is 2 cm2 with maximum pressure gradient of 6 mmHg and mean pressure gradient of 3 mmHg. MITRAL VALVE Mitral annular calcification is mild. There is no mitral valve stenosis. Doppler and Color-flow revea led trace mitral regurgitation. TRICUSPID VALVE The tricuspid valve is not well visualized. Doppler and Color Flow revealed trace tricuspid regurgita tion. There is no tricuspid valve stenosis. PULMONIC VALVE The pulmonic valve is not well visualized. Doppler and color-flow analysis was performed. There is no pulmonic valvular stenosis. GREAT VESSELS The aortic root is normal in size. The IVC is normal in size and collapses >50% with inspiration. PERICARDIAL EFFUSION There is no evidence of significant pericardial effusion. Critical Notification Critical Value: No <Conclusion> The systolic function is severely impaired. EF 20% There is global hypokinesis of the left ventricle with predominance in the anterior and apical de la torre. Transmitral Doppler flow pattern is Grade II-pseudonormal filling dynamics. Signed by : Yung Buckley, Electronically Approved : 07/21/2018 09:15:07
== END 2018-07-20 18:15 | disposition home or self-care (01) | DRG 246 ==
LOC: ER 20:54 → CVICU 22:43
PROVIDERS: ADMIT Internal Medicine; ATTEND Internal Medicine
PROC: 027034Z Dilation of Coronary Artery, One Artery with Drug-eluting Intraluminal Device, Percutaneous Approach (ICD-10-PCS; principal; 2018-07-18)
PROC: 4A023N7 Measurement of Cardiac Sampling and Pressure, Left Heart, Percutaneous Approach (ICD-10-PCS; 2018-07-18)
PROC: B2111ZZ Fluoroscopy of Multiple Coronary Arteries using Low Osmolar Contrast (ICD-10-PCS; 2018-07-18)
DX: I47.1 Supraventricular tachycardia (principal); I21.4 Non-ST elevation (NSTEMI) myocardial infarction; I25.10 Atherosclerotic heart disease of native coronary artery without angina pectoris; I48.92 Unspecified atrial flutter; I48.0 Paroxysmal atrial fibrillation; E11.9 Type 2 diabetes mellitus without complications; E78.5 Hyperlipidemia, unspecified; I10 Essential (primary) hypertension; N28.9 Disorder of kidney and ureter, unspecified; I69.320 Aphasia following cerebral infarction; I25.2 Old myocardial infarction; Z79.01 Long term (current) use of anticoagulants; Z79.84 Long term (current) use of oral hypoglycemic drugs; Z79.899 Other long term (current) drug therapy; Z87.442 Personal history of urinary calculi
CPT/HCPCS: 36415; 71045; 80048; 80053; 80061; 82553; 82962; 83690; 83735; 83880; 84484; 85025; 85610; 92928; 93005; 93306; 93458; 99152; 99153; C1725; C1769; C1874; C1887; C1892; J0153; J1644; J1815; J2250; J3010; J3490; J7030

== ENCOUNTER 2019-02-24 17:48 | Inpatient (IN) | payer OTHER ==
[~2019-02-24] VITALS: Ht 175.3 cm; Wt 72.1 kg
[~2019-02-24 17:48] MED LIST changes: +APIX5TAB PO; +ATOR40TA59 PO; +LOSA1TAB19 PO; +METO50TA6 PO; +TICA90TA PO
[2019-02-24 18:31] LABS: CLARITY,URINE TURBID; COLOR,URINE RED
[2019-02-24 18:36] LABS: RBC,URINE TNTC /HPF (0-2)
[2019-02-24 18:37] LABS: BACTERIA,URINE 0 /HPF (0-FEW); SQUAMOUS EPITHELIAL CELL,UR OCC /LPF
[2019-02-24 18:52] LABS: BASO # 0.1 x10^3/uL (0.0-0.2); BASO % 1 % (0-3); EOS # 0.2 x10^3/uL (0.0-0.7); EOS % 3 % (0-3); HEMATOCRIT 46.9 % (39.0-53.0); HEMOGLOBIN 15.6 g/dL (13.0-17.5); LYMPH # 1.1 x10^3/uL (1.0-4.8); LYMPH % 21 % (24-48); MEAN CORPUSCULAR HEMOGLOBIN 29 pg (25-35); MEAN CORPUSCULAR HGB CONC 33 g/dL (31-37); MEAN CORPUSCULAR VOLUME 87 fL (79-100); MONO # 0.6 x10^3/uL (0.0-1.1); MONO % 10 % (0-9); NEUT # 3.4 x10^3uL (1.8-7.7); NEUT % 64 % (31-73); PLATELET COUNT 197 x10^3/uL (140-400); RED BLOOD COUNT 5.37 x10^6/uL (4.30-5.70); RED CELL DISTRIBUTION WIDTH 13.9 % (11.5-14.5); WHITE BLOOD COUNT 5.4 x10^3/uL (4.0-11.0)
[2019-02-24 19:01] LABS: PROTHROMBIN TIME PATIENT 16.7 SEC (11.7-14.0)
[2019-02-24 19:02] LABS: CALCIUM 9.4 mg/dL (8.5-10.1); CREATININE 1.8 mg/dL (0.7-1.3); GFR 37.3; POTASSIUM 4.2 mmol/L (3.5-5.1)
[2019-02-24 19:08] LABS: ALBUMIN 3.5 g/dL (3.4-5.0); ALBUMIN/GLOBULIN RATIO 0.8 (1.0-1.7); TOTAL BILIRUBIN 0.6 mg/dL (0.2-1.0); TOTAL PROTEIN 7.8 g/dL (6.4-8.2)
--- NOTE | 2019-02-24 19:39 | PHYS DOC ---
Past Medical History Past Medical History: CAD, CVA, Diabetes-Type II, Hypertension, IL, Other Additional Past Medical Histor: states,"he has had heart problems." [place] 2004 Past Surgical History: Other Additional Past Surgical Histo: R) ear drum removed,gallstones and kidney stones, fatty tumor removed from Alcohol Use: None Drug Use: None Adult General Chief Complaint Chief Complaint: BLOOD IN URINE [facility] HPI Patient is a 74 year old male who presents with complaining of bloody urine. Patient is on Eliquis related to previous CVA and [place] complaining of one episode of hematuria. Arrival to ER without pain, dizziness, chest pain, other bleeding. Patient denies history of hematuria. Review of Systems Review of Systems Constitutional: Denies fever or chills [] Eyes: Denies change in visual acuity, redness, or eye pain [] HENT: Denies nasal congestion or sore throat [] Respiratory: Denies cough or shortness of breath [] Cardiovascular: No additional information not addressed in HPI [] GI: Denies abdominal pain, nausea, vomiting, bloody stools or diarrhea [] : Denies dysuria, reports hematuria [] Musculoskeletal: Denies back pain or joint pain [] Integument: Denies rash or skin lesions [] Neurologic: Denies headache, focal weakness or sensory changes [] Endocrine: Denies polyuria or polydipsia [] All other systems were reviewed and found to be within normal limits, except as documented in this note. Allergies Allergies Allergies Coded Allergies Type Severity Reaction Last Updated Verified No Known Drug Allergies 02/20/14 No Physical Exam Physical Exam Constitutional: Well developed, well nourished, no acute distress, non-toxic appearance. [] HENT: Normocephalic, atraumatic, oropharynx moist. Eyes: PERRLA, EOMI, conjunctiva normal, no discharge. [] Neck: Normal range of motion, no tenderness, supple, no stridor. [] Cardiovascular:Heart rate regular rhythm, no murmur [] Lungs & Thorax: Bilateral breath sounds clear to auscultation [] Abdomen: Bowel sounds normal, soft, no tenderness, no masses, no pulsatile masses. [] Skin: Warm, dry, no erythema, no rash. [] Back: No tenderness, no CVA tenderness. [] Extremities: No tenderness, no cyanosis, no clubbing, ROM intact, no edema. [] Neurologic: Alert and oriented X 3, mild slurred speech, normal motor function, normal sensory function, no focal deficits noted. [] Psychologic: Affect normal, judgement normal, mood normal. [] Current Patient Data Vital Signs Vital Signs Date Time Temp Pulse Resp B/P (MAP) Pulse Ox O2 Delivery O2 Flow Rate FiO2 02/24/19 18:01 98.0 64 20 178/86 (116) 97 Room Air 98.0 Lab Values Laboratory Tests Test 02/24/19 18:26 02/24/19 18:44 Urine Collection Type Unknown Urine Color Red Urine Clarity Turbid Urine pH Urine Specific [place] 1.025 Urine Protein mg/dL (NEG-TRACE) Urine Glucose (UA) mg/dL (NEG) Urine Ketones (Stick) mg/dL (NEG) Urine Blood (NEG) Urine Nitrite (NEG) Urine Bilirubin (NEG) Urine Urobilinogen Dipstick mg/dL (0.2 mg/dL) Urine Leukocyte Esterase (NEG) Urine RBC Tntc /HPF (0-2) Urine WBC 11-20 /HPF (0-4) Urine Squamous Epithelial Cells Occ /LPF Urine Bacteria 0 /HPF (0-FEW) Urine Mucus Slight /LPF White Blood Count 5.4 x10^3/uL (4.0-11.0) Red Blood Count 5.37 x10^6/uL (4.30-5.70) Hemoglobin 15.6 g/dL (13.0-17.5) Hematocrit 46.9 % (39.0-53.0) Mean Corpuscular Volume 87 fL (79-100) Mean Corpuscular Hemoglobin 29 pg (25-35) Mean Corpuscular Hemoglobin Concent 33 g/dL (31-37) Red Cell Distribution Width 13.9 % (11.5-14.5) Platelet Count 197 x10^3/uL (140-400) Neutrophils (%) (Auto) 64 % (31-73) Lymphocytes (%) (Auto) 21 % (24-48) L Monocytes (%) (Auto) 10 % (0-9) H Eosinophils (%) (Auto) 3 % (0-3) Basophils (%) (Auto) 1 % (0-3) Neutrophils # (Auto) 3.4 x10^3uL (1.8-7.7) Lymphocytes # (Auto) 1.1 x10^3/uL (1.0-4.8) Monocytes # (Auto) 0.6 x10^3/uL (0.0-1.1) Eosinophils # (Auto) 0.2 x10^3/uL (0.0-0.7) Basophils # (Auto) 0.1 x10^3/uL (0.0-0.2) Prothrombin Time 16.7 SEC (11.7-14.0) H Prothrombin Time INR 1.4 (0.8-1.1) H PTT 29 SEC (24-38) Sodium Level 140 mmol/L (136-145) Potassium Level 4.2 mmol/L (3.5-5.1) Chloride Level 102 mmol/L (98-107) Carbon Dioxide Level 25 mmol/L (21-32) Anion Gap 13 (6-14) Blood Urea Nitrogen 32 mg/dL (8-26) H Creatinine 1.8 mg/dL (0.7-1.3) H Estimated GFR (Cockcroft-Gault) 37.3 BUN/Creatinine Ratio 18 (6-20) Glucose Level 221 mg/dL (70-99) H Calcium Level 9.4 mg/dL (8.5-10.1) Total Bilirubin 0.6 mg/dL (0.2-1.0) Aspartate Amino Transferase (AST) 72 U/L (15-37) H Alanine Aminotransferase (ALT) 151 U/L (16-63) H Alkaline Phosphatase 82 U/L (46-116) Total Protein 7.8 g/dL (6.4-8.2) Albumin 3.5 g/dL (3.4-5.0) Albumin/Globulin Ratio 0.8 (1.0-1.7) L Laboratory Tests 02/24/19 18:44 Laboratory Tests 02/24/19 18:44 EKG EKG [] Radiology/Procedures Radiology/Procedures [] Course & Med Decision Making Course & Med Decision Making Pertinent Labs reviewed. (See chart for details) Evaluation of patient in ER showed 74-year-old male patient with history of CVA on Eliquis presented to ER with one episode of hematuria. Patient had too numerous to count bloody urine. Patient has history of CVA and IL. And to admit patient to stop picking Eliquis and watching for improvement of hematuria with evaluating for sign of possible new CVA or IL.Patient requiring admission for further evaluation and treatment. Discussed with Dr. Gale who is in agreement with admission. Discussed findings and plan with patient and family, who acknowledge understanding and agreement. Dragon Disclaimer Dragon Disclaimer This electronic medical record was generated, in whole or in part, using a voice recognition dictation system. Departure Departure Impression: Primary Impression: Anticoagulant-induced hematuria Additional Impressions: Renal insufficiency Uncontrolled diabetes mellitus Disposition: ADMITTED INPATIENT (at 1911) Admitting Physician: NENITA (Dr. Gale accepted admission at 1910) Condition: STABLE Referrals: LUIGI CLARK APRN (PCP) Problem Qualifiers Additional Impressions: Uncontrolled diabetes mellitus Diabetes mellitus type: type 2 Glycemic state: with hyperglycemia Qualified Codes: E11.65 - Type 2 diabetes mellitus with hyperglycemia CARLOTTA CARDOSO MD February 24, 2019 19:39
[2019-02-24 20:45] VITALS: BP 125/67
[2019-02-24] MEDS ORDERED: IV NORMAL SALINE 1000ML BAG 1,000 ML IV ONE (21:00)
[2019-02-24] MEDS ORDERED: METOPROLOL TART IMMED RELEASE 50 MG TABLET. PO SCH (21:00)
[2019-02-24] MEDS ORDERED: TEMAZEPAM 7.5 MG CAPSULE PO PRN (21:00)
[2019-02-24] MEDS ORDERED: ONDANSETRON PF 4 MG/2 ML VIAL. IV PRN (21:00)
[2019-02-24] MEDS ORDERED: glyBURIDE 1.25 MG TABLET PO SCH (21:00)
[2019-02-24] MEDS ORDERED: ATORVASTATIN CALCIUM 40 MG TABLET. PO SCH (21:00)
[2019-02-24] MEDS ORDERED: ACETAMINOPHEN 500 MG TABLET PO PRN (21:00)
[2019-02-24] MEDS ORDERED: GLIM2TAB2 PO (21:27)
[2019-02-24] MEDS ORDERED: ISOS30TA4 PO (21:27)
[2019-02-24] MEDS ORDERED: CHOL500050 PO (21:27)
[2019-02-24] MEDS ORDERED: METO-239 PO (21:27)
[2019-02-24] MEDS ORDERED: CLOP75TA PO (21:27)
[2019-02-24 23:00] VITALS: BP 124/73
--- NOTE | 2019-02-24 23:00 | NUR ---
Patient admission Pt arrived to the unit at approximately 5 via w/c from the ED. Family at bedside. Patient information guide packet was explained and given to pt. All questions and concerns regarding pt's POC was addressed and answered. Pt and family verbalized understanding. Pt made comfortable in bed. Will continue to monitor pt closely.
[2019-02-25] MEDS ORDERED: AMIO200T4 PO (02:43)
[2019-02-25 03:00] VITALS: BP 121/73
[2019-02-25 06:00] LABS: HEMATOCRIT 44.3 % (39.0-53.0); HEMOGLOBIN 14.5 g/dL (13.0-17.5)
[2019-02-25 06:26] LABS: CALCIUM 8.8 mg/dL (8.5-10.1); CREATININE 1.5 mg/dL (0.7-1.3)
[2019-02-25 07:00] VITALS: BP 142/77
[2019-02-25] MEDS ORDERED: metFORMIN 850 MG TABLET PO SCH (08:00)
[2019-02-25] MEDS ORDERED: hydroCHLOROthiazide 12.5 MG CAPSULE PO SCH (09:00)
[2019-02-25] MEDS ORDERED: ISOSORBIDE MONONITRATE ER 30 MG TAB.ER.24H PO SCH (09:00)
[2019-02-25] MEDS ORDERED: GLIMEPIRIDE 2 MG TABLET. PO SCH (09:00)
[2019-02-25] MEDS ORDERED: LOSARTAN POTASSIUM 50 MG TABLET. PO SCH (09:00)
--- NOTE | 2019-02-25 09:28 | PDOC2 ---
CHALO DIAMOND APRN 02/25/19 0928: UROLOGY CONSULT Date of Consult Date of Consult DATE: 02/25/19 TIME: 09:15 Reason for Consult Reason for Consult: Gross Hematuria Identification/Chief Complaint Chief Complaint Gross Hematuria Source Source: Caregiver, Patient History of Present Illness Reason for Visit: Patient grisel 74 year old male admitted through the ER last night for gross hematuria. Patient was on Eliquis related to previous CVA and [place] complaining of one episode of hematuria. The urine looked very dark, almost like red wine and he is not sure if there were any clots or not. Despite the urine's appearance he did not have any pain or discomfort when he urinated, and he feels like he is emptying his bladder very well. Patient denies history of prior hematuria or UTI to his knowledge and he is actually feeling well this am. He also believes that the hematuria is gone, as his urine looked normal yellow today. He has no history of prostate or bladder cancer that he is aware of. He is not sure if he has enlarged prostate, as his last JASON was about 15 years ago. He is also not sure what his last PSA was or if he has even had one drawn. Past Medical History Cardiovascular: HTN CENTRAL NERVOUS SYSTEM: CVA Renal/: No pertinent hx Past Surgical History Past Surgical History: No pertinent history Family History Family History: Heart Disease Social History Social History: Parent ALCOHOL: none Drugs: None Current Medications Current Medications Current Medications Acetaminophen (Tylenol) 500 mg PRN Q6HRS PRN PO MILD PAIN / TEMP; Start 02/24/19 at 21:00 Atorvastatin Calcium (Lipitor) 40 mg QHS PO Last administered on 02/24/19at 22:37; Start 02/24/19 at 21:00 Glimepiride (Amaryl) 2 mg DAILY PO Last administered on 02/25/19at 08:28; Start 02/25/19 at 09:00 Glyburide (Diabeta) 2.5 mg BID PO ; Start 02/24/19 at 21:00; Stop 02/24/19 at 22:02; Status DC Hydrochlorothiazide (Microzide) 12.5 mg DAILY PO Last administered on 02/25/19at 08:28; Start 02/25/19 at 09:00 Isosorbide Mononitrate (Imdur) 30 mg DAILY PO Last administered on 02/25/19at 08:29; Start 02/25/19 at 09:00 Losartan Potassium (Cozaar) 50 mg DAILY PO Last administered on 02/25/19at 08:28; Start 02/25/19 at 09:00 Metformin HCl (Glucophage) 850 mg BIDWMEALS PO ; Start 02/25/19 at 08:00; Stop 02/25/19 at 08:00; Status DC Metoprolol Succinate (Toprol Xl) 50 mg HS PO ; Start 02/25/19 at 21:00 Metoprolol Tartrate (Lopressor) 50 mg BID PO ; Start 02/24/19 at 21:00; Stop 02/24/19 at 22:02; Status DC Non-Formulary Medication (Cholecalciferol (Vitamin D3) (Vitamin D)) 50,000 unit QSU PO ; Start 02/28/19 at 16:00; Status UNV Ondansetron HCl (Zofran) 4 mg PRN Q6HRS PRN IV NAUSEA/VOMITING; Start 02/24/19 at 21:00 Sodium Chloride 1,000 ml @ 100 mls/hr 1X ONCE IV Last administered on 02/24/19at 22:37; Start 02/24/19 at 21:00; Stop 02/25/19 at 06:59; Status DC Temazepam (Restoril) 7.5 mg PRN QHS PRN PO INSOMNIA; Start 02/24/19 at 21:00 Allergies Allergies: Coded Allergies: No Known Drug Allergies (Unverified , 02/20/14) ROS Review Of Systems: CONSTITUTIONAL: No fever or chills EYES: No recent changes SKIN: No rash or itching CARDIOVASCULAR: No chest pain, syncope, palpitations, or edema RESPIRATORY: No SOB or cough GASTROINTESTINAL: No nausea, vomiting or abdominal pain NEUROLOGICAL: No headaches or weakness ENDOCRINE: No cold or heat intolerance GENITOURINARY: Had hematuria, but this is clearing up now MUSCULOSKELETAL: No back pain or joint pain LYMPHATICS: No enlarged lymph nodes PSYCHIATRIC: No anxiety or depression Physical Exam Physical Exam: General: Pleasant, no acute distress, well groomed Eyes: conjunctiva anicteric, eyes full range of motion ENT: moist oral mucosa, normal dentition Neck: Trachea midline, no masses Respiratory: unlabored breathing, not using accessory muscles, Abdomen: nontender, nondistended, no hepatosplenomegaly, no masses : JASON exam shows enlarged prostate with no palpable lesions, approx 50-60 grams Skin: no rashes or skin lesions on visualized skin Psych: normal mood, affect. Alert and oriented x 3. Vitals VITALS Vital Signs Date Time Temp Pulse Resp B/P (MAP) Pulse Ox O2 Delivery O2 Flow Rate FiO2 02/25/19 08:29 52 142/77 02/25/19 07:00 97.3 18 96 Room Air 97.3 Labs Labs Laboratory Tests Test 02/24/19 18:26 02/24/19 18:44 02/24/19 22:01 02/25/19 04:55 Urine Collection Type Unknown Urine Color Red Urine Clarity Turbid Urine pH Urine Specific [place] 1.025 Urine Protein mg/dL (NEG-TRACE) Urine Glucose (UA) mg/dL (NEG) Urine Ketones (Stick) mg/dL (NEG) Urine Blood (NEG) Urine Nitrite (NEG) Urine Bilirubin (NEG) Urine Urobilinogen Dipstick mg/dL (0.2 mg/dL) Urine Leukocyte Esterase (NEG) Urine RBC Tntc /HPF (0-2) Urine WBC 11-20 /HPF (0-4) Urine Squamous Epithelial Cells Occ /LPF Urine Bacteria 0 /HPF (0-FEW) Urine Mucus Slight /LPF White Blood Count 5.4 x10^3/uL (4.0-11.0) Red Blood Count 5.37 x10^6/uL (4.30-5.70) Hemoglobin 15.6 g/dL (13.0-17.5) 14.5 g/dL (13.0-17.5) Hematocrit 46.9 % (39.0-53.0) 44.3 % (39.0-53.0) Mean Corpuscular Volume 87 fL (79-100) Mean Corpuscular Hemoglobin 29 pg (25-35) Mean Corpuscular Hemoglobin Concent 33 g/dL (31-37) 33 g/dL (31-37) Red Cell Distribution Width 13.9 % (11.5-14.5) Platelet Count 197 x10^3/uL (140-400) Neutrophils (%) (Auto) 64 % (31-73) Lymphocytes (%) (Auto) 21 % (24-48) Monocytes (%) (Auto) 10 % (0-9) Eosinophils (%) (Auto) 3 % (0-3) Basophils (%) (Auto) 1 % (0-3) Neutrophils # (Auto) 3.4 x10^3uL (1.8-7.7) Lymphocytes # (Auto) 1.1 x10^3/uL (1.0-4.8) Monocytes # (Auto) 0.6 x10^3/uL (0.0-1.1) Eosinophils # (Auto) 0.2 x10^3/uL (0.0-0.7) Basophils # (Auto) 0.1 x10^3/uL (0.0-0.2) Prothrombin Time 16.7 SEC (11.7-14.0) Prothromb Time International Ratio 1.4 (0.8-1.1) Activated Partial Thromboplast Time 29 SEC (24-38) Sodium Level 140 mmol/L (136-145) 141 mmol/L (136-145) Potassium Level 4.2 mmol/L (3.5-5.1) 4.0 mmol/L (3.5-5.1) Chloride Level 102 mmol/L (98-107) 105 mmol/L (98-107) Carbon Dioxide Level 25 mmol/L (21-32) 26 mmol/L (21-32) Anion Gap 13 (6-14) 10 (6-14) Blood Urea Nitrogen 32 mg/dL (8-26) 28 mg/dL (8-26) Creatinine 1.8 mg/dL (0.7-1.3) 1.5 mg/dL (0.7-1.3) Estimated GFR (Cockcroft-Gault) 37.3 46.0 BUN/Creatinine Ratio 18 (6-20) Glucose Level 221 mg/dL (70-99) 204 mg/dL (70-99) Calcium Level 9.4 mg/dL (8.5-10.1) 8.8 mg/dL (8.5-10.1) Total Bilirubin 0.6 mg/dL (0.2-1.0) Aspartate Amino Transf (AST/SGOT) 72 U/L (15-37) Alanine Aminotransferase (ALT/SGPT) 151 U/L (16-63) Alkaline Phosphatase 82 U/L (46-116) Total Protein 7.8 g/dL (6.4-8.2) Albumin 3.5 g/dL (3.4-5.0) Albumin/Globulin Ratio 0.8 (1.0-1.7) Glucose (Fingerstick) 185 mg/dL (70-99) Test 02/25/19 08:15 Glucose (Fingerstick) 172 mg/dL (70-99) Laboratory Tests Test 02/24/19 18:26 02/24/19 18:44 02/24/19 22:01 02/25/19 04:55 Urine Collection Type Unknown Urine Color Red Urine Clarity Turbid Urine pH Urine Specific [place] 1.025 Urine Protein mg/dL (NEG-TRACE) Urine Glucose (UA) mg/dL (NEG) Urine Ketones (Stick) mg/dL (NEG) Urine Blood (NEG) Urine Nitrite (NEG) Urine Bilirubin (NEG) Urine Urobilinogen Dipstick mg/dL (0.2 mg/dL) Urine Leukocyte Esterase (NEG) Urine RBC Tntc /HPF (0-2) Urine WBC 11-20 /HPF (0-4) Urine Squamous Epithelial Cells Occ /LPF Urine Bacteria 0 /HPF (0-FEW) Urine Mucus Slight /LPF White Blood Count 5.4 x10^3/uL (4.0-11.0) Red Blood Count 5.37 x10^6/uL (4.30-5.70) Hemoglobin 15.6 g/dL (13.0-17.5) 14.5 g/dL (13.0-17.5) Hematocrit 46.9 % (39.0-53.0) 44.3 % (39.0-53.0) Mean Corpuscular Volume 87 fL (79-100) Mean Corpuscular Hemoglobin 29 pg (25-35) Mean Corpuscular Hemoglobin Concent 33 g/dL (31-37) 33 g/dL (31-37) Red Cell Distribution Width 13.9 % (11.5-14.5) Platelet Count 197 x10^3/uL (140-400) Neutrophils (%) (Auto) 64 % (31-73) Lymphocytes (%) (Auto) 21 % (24-48) Monocytes (%) (Auto) 10 % (0-9) Eosinophils (%) (Auto) 3 % (0-3) Basophils (%) (Auto) 1 % (0-3) Neutrophils # (Auto) 3.4 x10^3uL (1.8-7.7) Lymphocytes # (Auto) 1.1 x10^3/uL (1.0-4.8) Monocytes # (Auto) 0.6 x10^3/uL (0.0-1.1) Eosinophils # (Auto) 0.2 x10^3/uL (0.0-0.7) Basophils # (Auto) 0.1 x10^3/uL (0.0-0.2) Prothrombin Time 16.7 SEC (11.7-14.0) Prothromb Time International Ratio 1.4 (0.8-1.1) Activated Partial Thromboplast Time 29 SEC (24-38) Sodium Level 140 mmol/L (136-145) 141 mmol/L (136-145) Potassium Level 4.2 mmol/L (3.5-5.1) 4.0 mmol/L (3.5-5.1) Chloride Level 102 mmol/L (98-107) 105 mmol/L (98-107) Carbon Dioxide Level 25 mmol/L (21-32) 26 mmol/L (21-32) Anion Gap 13 (6-14) 10 (6-14) Blood Urea Nitrogen 32 mg/dL (8-26) 28 mg/dL (8-26) Creatinine 1.8 mg/dL (0.7-1.3) 1.5 mg/dL (0.7-1.3) Estimated GFR (Cockcroft-Gault) 37.3 46.0 BUN/Creatinine Ratio 18 (6-20) Glucose Level 221 mg/dL (70-99) 204 mg/dL (70-99) Calcium Level 9.4 mg/dL (8.5-10.1) 8.8 mg/dL (8.5-10.1) Total Bilirubin 0.6 mg/dL (0.2-1.0) Aspartate Amino Transf (AST/SGOT) 72 U/L (15-37) Alanine Aminotransferase (ALT/SGPT) 151 U/L (16-63) Alkaline Phosphatase 82 U/L (46-116) Total Protein 7.8 g/dL (6.4-8.2) Albumin 3.5 g/dL (3.4-5.0) Albumin/Globulin Ratio 0.8 (1.0-1.7) Glucose (Fingerstick) 185 mg/dL (70-99) Test 02/25/19 08:15 Glucose (Fingerstick) 172 mg/dL (70-99) Assessment/Plan Assessment/Plan Discussed different causes of hematuria with patient and family member. Hematuria clearing up per patient report. Will repeat UA today. A cystoscopy appointment has been arranged for patient on 03/25/19 at [address] [place] [facility] [place] [facility] [place]. Appointment card and new patient paperwork given to patient. Pt neck pinner 1.5. Would like to do CTU on patient but not able to currently. [employer] has shown improvement from 1.8 to 1.5. Will follow to see if improvement continues. Discussed case with Dr. Vaughan. ALBAN VAUGHAN MD 02/25/19 1333: UROLOGY CONSULT Assessment/Plan Assessment/Plan Patient seen and examined. He was being discharged upon my arrival. Discussed the importance of followup soon for CT scan and cystoscopy to evaluate for urinary stones and/or malignancy. He verbalized understanding. CHALO DIAMOND APRN February 25, 2019 09:28 ALBAN VAUGHAN MD February 25, 2019 13:33
[2019-02-25 11:00] VITALS: BP 139/70
[2019-02-25 13:30] LABS: BILIRUBIN,URINE NEGATIVE (NEG); CLARITY,URINE CLEAR; COLOR,URINE YELLOW; NITRITE,URINE NEGATIVE (NEG); PH,URINE 5.5; PROTEIN,URINE NEGATIVE (NEG-TRACE)
--- NOTE | 2019-02-25 13:30 | NUR ---
Discharge Note: Patient was discharged home with self care. Patients at the bedside at the time of discharge education. Patients IV was discontinued without any complications by BALJIT. Patient was given discharge summary/instructions, follow-ups, and educational material. Patient and did not have any further questions or concerns. Patient was taken down to the main entrance with all personal belongings accompanied by BALJIT Rutledge.
[2019-02-25 13:54] LABS: BACTERIA,URINE 0 /HPF (0-FEW); WBC,URINE 0 /HPF (0-4)
--- NOTE | 2019-02-25 20:23 | DS ---
DATE OF DISCHARGE: 02/25/2019 ADMISSION DIAGNOSIS: Hematuria. DISCHARGE DIAGNOSES: Resolving hematuria (he was on Eliquis and Plavix), history of arrhythmias, congestive heart failure, coronary artery disease, hypertension, insomnia, edema, diabetes. CONSULTS: Urology. PROCEDURES: None. HOSPITAL COURSE: The patient is a pleasant 74-year-old male who is on Eliquis and Plavix because he has multiple issues. He even had a previous stroke on top of the other things that are listed above. Basically, we admitted the patient, tracked his hemoglobin, seem to be stable. We did consult Urology. His hemoglobin is 14.5. We have held his anticoagulation. He is doing better this morning. Urology saw the patient with me. We plan to discharge and he is going to get a cystoscopy. I am going to gently resume his Eliquis in 48 hours and then hold off on the Plavix for now because it is causing hematuria. I did examine him. His heart tones were normal this morning. His lungs were clear. His abdomen was soft. Extremities with no edema. We plan to discharge home. DISPOSITION: Home. ACTIVITY: As tolerated. DIET: Low sodium. MEDICATIONS: We are going to resume the home meds, but I am holding the Plavix and will resume his anticoagulation with Eliquis on Friday in 48 hours. TOTAL TIME: 33 minutes. HEMANT PANDA DO DR: JULIAN/sruthi JOB#: [id number] / [id number]
[2019-02-25] MEDS ORDERED: METOPROLOL SUCC 24HR ER 50 MG TAB.ER.24H. PO SCH (21:00)
--- NOTE | 2019-02-26 12:15 | PDOC1 ---
History and Physical Date of Admission: Date of Admission DATE: 02/26/19 TIME: 12:13 Chief Complaint: Problems: (1) Epistaxis (2) Anticoagulant-induced hematuria Chief Complain: Hematuria History of Present Illness: HPI: Patient is a pleasant middle-aged male who is on L Tashi and Plavix and basically has hematuria I discussed the case with ER physician Keila hold the Plavix and Eliquis and admit him with urology consultation Past Medical/Surgical History: PMH/PSH: Stroke Chronic anticoagulation Allergies: Allergies: Coded Allergies: No Known Drug Allergies (Unverified , 02/20/14) Family History: Family History: Strokes Social History: Social Hisoty: He doesn't drink smoke or take drugs he is Current Medications: Current Medications Current Medications Atorvastatin Calcium (Lipitor) 40 mg QHS PO Last administered on 02/24/19at 22:37; Start 02/24/19 at 21:00; Stop 02/25/19 at 14:54; Status DC Glyburide (Diabeta) 2.5 mg BID PO ; Start 02/24/19 at 21:00; Stop 02/24/19 at 22:02; Status DC Metoprolol Tartrate (Lopressor) 50 mg BID PO ; Start 02/24/19 at 21:00; Stop 02/24/19 at 22:02; Status DC Losartan Potassium (Cozaar) 50 mg DAILY PO Last administered on 02/25/19at 08:28; Start 02/25/19 at 09:00; Stop 02/25/19 at 14:54; Status DC Metformin HCl (Glucophage) 850 mg BIDWMEALS PO ; Start 02/25/19 at 08:00; Stop 02/25/19 at 08:00; Status DC Temazepam (Restoril) 7.5 mg PRN QHS PRN PO INSOMNIA; Start 02/24/19 at 21:00; Stop 02/25/19 at 14:54; Status DC Acetaminophen (Tylenol) 500 mg PRN Q6HRS PRN PO MILD PAIN / TEMP; Start 02/24/19 at 21:00; Stop 02/25/19 at 14:54; Status DC Ondansetron HCl (Zofran) 4 mg PRN Q6HRS PRN IV NAUSEA/VOMITING; Start 02/24/19 at 21:00; Stop 02/25/19 at 14:54; Status DC Sodium Chloride 1,000 ml @ 100 mls/hr 1X ONCE IV Last administered on 02/24/19at 22:37; Start 02/24/19 at 21:00; Stop 02/25/19 at 06:59; Status DC Hydrochlorothiazide (Microzide) 12.5 mg DAILY PO Last administered on 02/25/19at 08:28; Start 02/25/19 at 09:00; Stop 02/25/19 at 14:54; Status DC Glimepiride (Amaryl) 2 mg DAILY PO Last administered on 02/25/19at 08:28; Start 02/25/19 at 09:00; Stop 02/25/19 at 14:54; Status DC Isosorbide Mononitrate (Imdur) 30 mg DAILY PO Last administered on 02/25/19at 08:29; Start 02/25/19 at 09:00; Stop 02/25/19 at 14:54; Status DC Metoprolol Succinate (Toprol Xl) 50 mg HS PO ; Start 02/25/19 at 21:00; Stop 02/25/19 at 21:00; Status DC Non-Formulary Medication (Cholecalciferol (Vitamin D3) (Vitamin D)) 50,000 unit QSU PO ; Start 02/28/19 at 16:00; Status UNV Active Scripts Active Atorvastatin Calcium 40 Mg Tablet 40 Mg PO QHS 30 Days Eliquis (Apixaban) 5 Mg Tablet 5 Mg PO BID 30 Days Reported Amiodarone Hcl 200 Mg Tablet 1 Tab PO HS Metoprolol Succinate ( Xl ) (Metoprolol Succinate) 25 Mg Tab.er.24h 50 Mg PO HS Isosorbide Mononitrate Er (Isosorbide Mononitrate) 30 Mg Tab.er.24h 1 Tab PO DAILY Glimepiride 2 Mg Tablet 1 Tab PO DAILY Vitamin D (Cholecalciferol (Vitamin D3)) 50,000 Unit Capsule 50,000 Unit PO QSU Losartan-Hctz 50-12.5 Mg Tab (Losartan/Hydrochlorothiazide) 1 Each Tablet 1 Tab PO DAILY ROS: Review of Systems Review of System REVIEW OF SYSTEMS: GENERAL: Denies weakness SKIN: No bruising, hair changes or rashes. EYES: No blurred, double or loss of vision. NOSE AND THROAT: No history of nosebleeds, hoarseness or sore throat. HEART: No history of palpitations, chest pain or shortness of breath on exertion. LUNGS: Denies cough, hemoptysis, wheezing or shortness of breath. GASTROINTESTINAL: Denies changes in appetite, nausea, vomiting, diarrhea or constipation. GENITOURINARY: Complains of hematuria NEUROLOGIC: Denies history of numbness, tingling, tremor or weakness. PSYCHIATRIC: No history of panic, anxiety or depression. ENDOCRINE: No history of heat or cold intolerance, polyuria or polydipsia. EXTREMITIES: Denies muscle weakness, joint pain, pain on walking or stiffness. Physical Exam: Vital Signs: Vital Signs Date Time Temp Pulse Resp B/P (MAP) Pulse Ox O2 Delivery O2 Flow Rate FiO2 02/25/19 11:00 97.6 56 139/70 (93) 97 Room Air 97.6 02/25/19 07:00 18 Physcial Exam: GEN.: No apparent distress. Alert and oriented. HEENT: Head is normocephalic, atraumatic NECK: Supple, no JVD LUNGS: Clear to auscultation without rhonchi or wheezing HEART: RRR, S1, S2 present. Peripheral pulses intact ABDOMEN: Soft, nontender. Positive bowel sounds no organomegaly EXTREMITIES: Without any cyanosis, clubbing, or edema. Pedal pulses intact NEUROLOGIC: Normal speech, normal tone. A&O x 3 PSYCHIATRIC: Normal affect, normal mood. Stable SKIN: No ulcerations or rashes VASCULAR: Good capillary refill Labs: Labs: Laboratory Tests Test 02/24/19 18:26 02/24/19 18:44 02/24/19 22:01 02/25/19 04:55 Urine Collection Type Unknown Urine Color Red Urine Clarity Turbid Urine pH Urine Specific [place] 1.025 Urine Protein mg/dL (NEG-TRACE) Urine Glucose (UA) mg/dL (NEG) Urine Ketones (Stick) mg/dL (NEG) Urine Blood (NEG) Urine Nitrite (NEG) Urine Bilirubin (NEG) Urine Urobilinogen Dipstick mg/dL (0.2 mg/dL) Urine Leukocyte Esterase (NEG) Urine RBC Tntc /HPF (0-2) Urine WBC 11-20 /HPF (0-4) Urine Squamous Epithelial Cells Occ /LPF Urine Bacteria 0 /HPF (0-FEW) Urine Mucus Slight /LPF White Blood Count 5.4 x10^3/uL (4.0-11.0) Red Blood Count 5.37 x10^6/uL (4.30-5.70) Hemoglobin 15.6 g/dL (13.0-17.5) 14.5 g/dL (13.0-17.5) Hematocrit 46.9 % (39.0-53.0) 44.3 % (39.0-53.0) Mean Corpuscular Volume 87 fL (79-100) Mean Corpuscular Hemoglobin 29 pg (25-35) Mean Corpuscular Hemoglobin Concent 33 g/dL (31-37) 33 g/dL (31-37) Red Cell Distribution Width 13.9 % (11.5-14.5) Platelet Count 197 x10^3/uL (140-400) Neutrophils (%) (Auto) 64 % (31-73) Lymphocytes (%) (Auto) 21 % (24-48) Monocytes (%) (Auto) 10 % (0-9) Eosinophils (%) (Auto) 3 % (0-3) Basophils (%) (Auto) 1 % (0-3) Neutrophils # (Auto) 3.4 x10^3uL (1.8-7.7) Lymphocytes # (Auto) 1.1 x10^3/uL (1.0-4.8) Monocytes # (Auto) 0.6 x10^3/uL (0.0-1.1) Eosinophils # (Auto) 0.2 x10^3/uL (0.0-0.7) Basophils # (Auto) 0.1 x10^3/uL (0.0-0.2) Prothrombin Time 16.7 SEC (11.7-14.0) Prothromb Time International Ratio 1.4 (0.8-1.1) Activated Partial Thromboplast Time 29 SEC (24-38) Sodium Level 140 mmol/L (136-145) 141 mmol/L (136-145) Potassium Level 4.2 mmol/L (3.5-5.1) 4.0 mmol/L (3.5-5.1) Chloride Level 102 mmol/L (98-107) 105 mmol/L (98-107) Carbon Dioxide Level 25 mmol/L (21-32) 26 mmol/L (21-32) Anion Gap 13 (6-14) 10 (6-14) Blood Urea Nitrogen 32 mg/dL (8-26) 28 mg/dL (8-26) Creatinine 1.8 mg/dL (0.7-1.3) 1.5 mg/dL (0.7-1.3) Estimated GFR (Cockcroft-Gault) 37.3 46.0 BUN/Creatinine Ratio 18 (6-20) Glucose Level 221 mg/dL (70-99) 204 mg/dL (70-99) Calcium Level 9.4 mg/dL (8.5-10.1) 8.8 mg/dL (8.5-10.1) Total Bilirubin 0.6 mg/dL (0.2-1.0) Aspartate Amino Transf (AST/SGOT) 72 U/L (15-37) Alanine Aminotransferase (ALT/SGPT) 151 U/L (16-63) Alkaline Phosphatase 82 U/L (46-116) Total Protein 7.8 g/dL (6.4-8.2) Albumin 3.5 g/dL (3.4-5.0) Albumin/Globulin Ratio 0.8 (1.0-1.7) Glucose (Fingerstick) 185 mg/dL (70-99) Test 02/25/19 08:15 02/25/19 11:56 02/25/19 12:58 Glucose (Fingerstick) 172 mg/dL (70-99) 244 mg/dL (70-99) Urine Collection Type Unknown Urine Color Yellow Urine Clarity Clear Urine pH 5.5 Urine Specific [place] 1.020 Urine Protein Negative mg/dL (NEG-TRACE) Urine Glucose (UA) >=1000 mg/dL (NEG) Urine Ketones (Stick) Negative mg/dL (NEG) Urine Blood Moderate (NEG) Urine Nitrite Negative (NEG) Urine Bilirubin Negative (NEG) Urine Urobilinogen Dipstick 1.0 mg/dL (0.2 mg/dL) Urine Leukocyte Esterase Negative (NEG) Urine RBC 3-5 /HPF (0-2) Urine WBC 0 /HPF (0-4) Urine Bacteria 0 /HPF (0-FEW) Laboratory Tests Test 02/25/19 12:58 Urine Collection Type Unknown Urine Color Yellow Urine Clarity Clear Urine pH 5.5 Urine Specific [place] 1.020 Urine Protein Negative mg/dL (NEG-TRACE) Urine Glucose (UA) >=1000 mg/dL (NEG) Urine Ketones (Stick) Negative mg/dL (NEG) Urine Blood Moderate (NEG) Urine Nitrite Negative (NEG) Urine Bilirubin Negative (NEG) Urine Urobilinogen Dipstick 1.0 mg/dL (0.2 mg/dL) Urine Leukocyte Esterase Negative (NEG) Urine RBC 3-5 /HPF (0-2) Urine WBC 0 /HPF (0-4) Urine Bacteria 0 /HPF (0-FEW) Images: Images Pending Assessment/Plan Assessment/Plan Hematuria on anticoagulation Plan Holding anti-coagulation and consult urology IV fluids UA Home meds except for the anticoagulation DVT prophylaxis Frequent labs Full code HEMANT PANDA III DO February 26, 2019 12:15
[2019-02-28] MEDS ORDERED: NON FORMULARY ITEM (Cholecalciferol (Vitamin D3) (Vitamin D) 50,000 UNIT) PO SCH (16:00)
== END 2019-02-25 13:15 | disposition home or self-care (01) | DRG 696 ==
LOC: ER 17:48 → 5 NORTH 19:10
PROVIDERS: ADMIT Internal Medicine; ATTEND Internal Medicine
DX: R31.0 Gross hematuria (principal); D68.32 Hemorrhagic disorder due to extrinsic circulating anticoagulants; E11.65 Type 2 diabetes mellitus with hyperglycemia; I11.0 Hypertensive heart disease with heart failure; I25.10 Atherosclerotic heart disease of native coronary artery without angina pectoris; I50.9 Heart failure, unspecified; I25.2 Old myocardial infarction; N28.9 Disorder of kidney and ureter, unspecified; R04.0 Epistaxis; Z79.01 Long term (current) use of anticoagulants; Z82.3 Family history of stroke; Z86.73 Personal history of transient ischemic attack (TIA), and cerebral infarction without residual deficits; Z87.442 Personal history of urinary calculi; T45.525A Adverse effect of antithrombotic drugs, initial encounter
CPT/HCPCS: 36415; 80048; 80053; 81001; 82962; 85014; 85018; 85025; 85610; 85730; 87086; J7030; 99285-25

== ENCOUNTER 2019-02-27 02:00 | Inpatient (IN) | payer OTHER ==
[~2019-02-27] VITALS: Ht 175.3 cm; Wt 74.4 kg
[~2019-02-27 02:00] MED LIST changes: +AMIO200T4 PO; +CHOL500050 PO; +CLOP75TA PO; +GLIM2TAB2 PO; +ISOS30TA4 PO; +METO-239 PO
[2019-02-27] MEDS ORDERED: IV NORMAL SALINE 1000ML BAG 1,000 ML IV ONE (02:15)
[2019-02-27 02:47] LABS: BASO % 1 % (0-3); EOS # 0.2 x10^3/uL (0.0-0.7); EOS % 4 % (0-3); HEMATOCRIT 46.5 % (39.0-53.0); HEMOGLOBIN 15.3 g/dL (13.0-17.5); LYMPH # 1.2 x10^3/uL (1.0-4.8); LYMPH % 24 % (24-48); MEAN CORPUSCULAR HEMOGLOBIN 29 pg (25-35); MEAN CORPUSCULAR HGB CONC 33 g/dL (31-37); MEAN CORPUSCULAR VOLUME 88 fL (79-100); MONO # 0.5 x10^3/uL (0.0-1.1); MONO % 11 % (0-9); NEUT # 2.9 x10^3uL (1.8-7.7); NEUT % 60 % (31-73); PLATELET COUNT 185 x10^3/uL (140-400); RED BLOOD COUNT 5.26 x10^6/uL (4.30-5.70); RED CELL DISTRIBUTION WIDTH 13.6 % (11.5-14.5); WHITE BLOOD COUNT 4.9 x10^3/uL (4.0-11.0)
[2019-02-27 02:55] LABS: BILIRUBIN,URINE LARGE (NEG); CLARITY,URINE CLOUDY; COLOR,URINE RED; PROTEIN,URINE >=300 mg/dL (NEG-TRACE)
[2019-02-27 02:56] LABS: RBC,URINE TNTC /HPF (0-2)
[2019-02-27 02:57] LABS: BACTERIA,URINE 0 /HPF (0-FEW); PROTHROMBIN TIME PATIENT 15.8 SEC (11.7-14.0); WBC,URINE 20-40 /HPF (0-4)
[2019-02-27 02:58] LABS: CALCIUM 9.2 mg/dL (8.5-10.1); CREATININE 1.7 mg/dL (0.7-1.3); GFR 39.8; POTASSIUM 3.6 mmol/L (3.5-5.1)
--- NOTE | 2019-02-27 02:59 | RAD ---
PQRS Compliance statement: One or more of the following individualized dose reduction techniques were utilized for this examination: 1. Automated exposure control. 2. Adjustment of the mA and/or kV according to patient size. 3. Use of iterative reconstruction technique. Indication:Hematuria TECHNIQUE: CT abdomen and pelvis without IV contrast with multiplanar reformats. COMPARISON: 02/20/2014 FINDINGS: Limited evaluation of solid abdominal and pelvic organs due to lack of IV contrast. Heart is normal in size. No pericardial or pleural effusion. Coronary artery calcifications. Paraseptal emphysema in the visualized left upper lobe. Interstitial opacities in the lateral lower lobes likely early evidence of interstitial fibrosis. Noncontrast appearance of the liver, spleen, pancreas, adrenals within normal limits. Nonobstructing 3 mm stone in the right kidney. Simple cyst in the right kidney measuring 4.6 x 4.8 cm. No enlarged retroperitoneal or pelvic adenopathy. Moderate diffuse atherosclerotic plaque in the abdominal aorta and its major branches. Status post cholecystectomy. Shotty jeronimo hepatis lymph nodes, nonspecific likely reactive. No free pelvic fluid or ascites. No bowel distention. Sigmoid and descending colon diverticulosis. Normal appendix. Prostate is enlarged measuring 5.8 x 5.1 cm. Urinary bladder demonstrates no radiopaque stones. Circumferential wall thickening is seen of the urinary bladder. 1.3 x 1.0 cm left lower quadrant mesenteric lymph node. No pneumoperitoneum. No suspicious bony lesion. IMPRESSION: Limited evaluation of solid abdominal and pelvic organs due to lack of IV contrast. 1. Nonobstructing right renal stone. 2. Enlarged prostate. Clinically correlate with physical exam and PSA. 2. Circumferential wall thickening of the urinary bladder may be secondary to cystitis or chronic outlet obstruction. Clinically correlate with urinalysis. Electronically signed by: Fidencio Landis DO (02/27/2019 2:56 AM) [facility]
[2019-02-27] MEDS ORDERED: cefTRIAXone IV Push 1 GM VIAL. IVP ONE ×2 (03:05→03:15)
[2019-02-27 03:12] LABS: ALBUMIN 3.4 g/dL (3.4-5.0); ALBUMIN/GLOBULIN RATIO 0.8 (1.0-1.7); MAGNESIUM 1.7 mg/dL (1.8-2.4); TOTAL BILIRUBIN 0.6 mg/dL (0.2-1.0); TOTAL PROTEIN 7.5 g/dL (6.4-8.2)
--- NOTE | 2019-02-27 03:17 | PHYS DOC ---
Past Medical History Past Medical History: CAD, CVA, Diabetes-Type II, Hypertension, [place], Other Additional Past Medical Histor: states,"he has had heart problems." [place] 2004 Past Surgical History: Other Additional Past Surgical Histo: R) ear drum removed,gallstones and kidney stones, fatty tumor removed from Alcohol Use: None Drug Use: None Adult General Chief Complaint Chief Complaint: BLOOD IN URINE HPI HPI 74-year-old male presents with report of episode of hematuria which occurred just prior to arrival. Patient was recently admitted for same which was determined to be secondary to anticoagulants Xarelto and Eliquis. Patient was taken off of his Xarelto. Patient had been seen by urology with plan for outpatient follow-up and of February. Patient denies any dizziness or lightheadedness. Denies pain. Denies fever or chills. Denies trauma. Review of Systems Review of Systems Constitutional: Denies fever or chills Eyes: Denies redness or eye pain HENT: Denies nasal congestion or sore throat Respiratory: Denies cough or shortness of breath Cardiovascular: Denies chest pain or palpitations GI: Denies abdominal pain, nausea, or vomiting : Denies dysuria; reports hematuria Musculoskeletal: Denies back pain or joint pain Integument: Denies rash or skin lesions Neurologic: Denies headache, focal weakness or sensory changes Complete systems were reviewed and found to be within normal limits, except as d ocumented in this note. Current Medications Current Medications Current Medications Medications (Trade) Dose Ordered Sig/Mykel Start Time Stop Time Status Last Admin Dose Admin Ceftriaxone Sodium (Rocephin) 1 gm STK-MED ONCE 02/27/19 03:05 02/27/19 03:06 DC Sodium Chloride 1,000 ml @ 1,000 mls/hr 1X ONCE 02/27/19 02:15 02/27/19 03:14 DC 02/27/19 02:28 1,000 MLS/HR Allergies Allergies Allergies Coded Allergies Type Severity Reaction Last Updated Verified No Known Drug Allergies 02/20/14 No Physical Exam Physical Exam Constitutional: Well developed, well nourished, no acute distress, non-toxic appearance HENT: Normocephalic, atraumatic, oropharynx moist, hearing aid to left ear Eyes: Conjunctiva normal, no discharge Neck: Normal range of motion, no tenderness, supple Cardiovascular: Heart rate normal, regular rhythm Lungs & Thorax: Bilateral breath sounds clear to auscultation, no wheezing Abdomen: Soft, no tenderness Skin: Warm, dry, no erythema, no rash Back: No tenderness, no CVA tenderness Extremities: No tenderness, ROM intact, no edema Neurologic: Alert and oriented X 3,speech slurred (baseline), no focal deficits noted Psychologic: Affect normal, judgement normal, mood normal Current Patient Data Vital Signs Vital Signs Date Time Temp Pulse Resp B/P (MAP) Pulse Ox O2 Delivery O2 Flow Rate FiO2 02/27/19 03:13 47 16 143/71 (95) 98 Room Air 02/27/19 02:15 97.5 97.5 Lab Values Laboratory Tests Test 02/27/19 02:20 White Blood Count 4.9 x10^3/uL (4.0-11.0) Red Blood Count 5.26 x10^6/uL (4.30-5.70) Hemoglobin 15.3 g/dL (13.0-17.5) Hematocrit 46.5 % (39.0-53.0) Mean Corpuscular Volume 88 fL (79-100) Mean Corpuscular Hemoglobin 29 pg (25-35) Mean Corpuscular Hemoglobin Concent 33 g/dL (31-37) Red Cell Distribution Width 13.6 % (11.5-14.5) Platelet Count 185 x10^3/uL (140-400) Neutrophils (%) (Auto) 60 % (31-73) Lymphocytes (%) (Auto) 24 % (24-48) Monocytes (%) (Auto) 11 % (0-9) H Eosinophils (%) (Auto) 4 % (0-3) H Basophils (%) (Auto) 1 % (0-3) Neutrophils # (Auto) 2.9 x10^3uL (1.8-7.7) Lymphocytes # (Auto) 1.2 x10^3/uL (1.0-4.8) Monocytes # (Auto) 0.5 x10^3/uL (0.0-1.1) Eosinophils # (Auto) 0.2 x10^3/uL (0.0-0.7) Basophils # (Auto) 0.0 x10^3/uL (0.0-0.2) Prothrombin Time 15.8 SEC (11.7-14.0) H Prothrombin Time INR 1.3 (0.8-1.1) H PTT 31 SEC (24-38) Urine Collection Type Unknown Urine Color Red Urine Clarity Cloudy Urine pH 5.0 Urine Specific [place] 1.020 Urine Protein >=300 mg/dL (NEG-TRACE) Urine Glucose (UA) 500 mg/dL (NEG) Urine Ketones (Stick) 40 mg/dL (NEG) Urine Blood Large (NEG) Urine Nitrite (NEG) Urine Bilirubin Large (NEG) Urine Urobilinogen Dipstick 1.0 mg/dL (0.2 mg/dL) Urine Leukocyte Esterase Large (NEG) Urine RBC Tntc /HPF (0-2) Urine WBC 20-40 /HPF (0-4) Urine Bacteria 0 /HPF (0-FEW) Urine Mucus Mod /LPF Sodium Level 141 mmol/L (136-145) Potassium Level 3.6 mmol/L (3.5-5.1) Chloride Level 103 mmol/L (98-107) Carbon Dioxide Level 26 mmol/L (21-32) Anion Gap 12 (6-14) Blood Urea Nitrogen 32 mg/dL (8-26) H Creatinine 1.7 mg/dL (0.7-1.3) H Estimated GFR (Cockcroft-Gault) 39.8 BUN/Creatinine Ratio 19 (6-20) Glucose Level 265 mg/dL (70-99) H Calcium Level 9.2 mg/dL (8.5-10.1) Magnesium Level 1.7 mg/dL (1.8-2.4) L Total Bilirubin 0.6 mg/dL (0.2-1.0) Aspartate Amino Transferase (AST) 72 U/L (15-37) H Alanine Aminotransferase (ALT) 151 U/L (16-63) H Alkaline Phosphatase 86 U/L (46-116) Total Protein 7.5 g/dL (6.4-8.2) Albumin 3.4 g/dL (3.4-5.0) Albumin/Globulin Ratio 0.8 (1.0-1.7) L Laboratory Tests 02/27/19 02:20 Laboratory Tests 02/27/19 02:20 EKG EKG [] Radiology/Procedures Radiology/Procedures PROCEDURE: CT ABDOMEN PELVIS WO CONTRAST PQRS Compliance statement: One or more of the following individualized dose reduction techniques were utilized for this examination: 1. Automated exposure control. 2. Adjustment of the mA and/or kV according to patient size. 3. Use of iterative reconstruction technique. Indication:Hematuria TECHNIQUE: CT abdomen and pelvis without IV contrast with multiplanar reformats. COMPARISON: 02/20/2014 FINDINGS: Limited evaluation of solid abdominal and pelvic organs due to lack of IV contrast. Heart is normal in size. No pericardial or pleural effusion. Coronary artery calcifications. Paraseptal emphysema in the visualized left upper lobe. Interstitial opacities in the lateral lower lobes likely early evidence of interstitial fibrosis. Noncontrast appearance of the liver, spleen, pancreas, adrenals within normal limits. Nonobstructing 3 mm stone in the right kidney. Simple cyst in the right kidney measuring 4.6 x 4.8 cm. No enlarged retroperitoneal or pelvic adenopathy. Moderate diffuse atherosclerotic plaque in the abdominal aorta and its major branches. Status post cholecystectomy. Shotty jeronimo hepatis lymph nodes, nonspecific likely reactive. No free pelvic fluid or ascites. No bowel distention. Sigmoid and descending colon diverticulosis. Normal appendix. Prostate is enlarged measuring 5.8 x 5.1 cm. Urinary bladder demonstrates no radiopaque stones. Circumferential wall thickening is seen of the urinary bladder. 1.3 x 1.0 cm left lower quadrant mesenteric lymph node. No pneumoperitoneum. No suspicious bony lesion. IMPRESSION: Limited evaluation of solid abdominal and pelvic organs due to lack of IV contrast. 1. Nonobstructing right renal stone. 2. Enlarged prostate. Clinically correlate with physical exam and PSA. 2. Circumferential wall thickening of the urinary bladder may be secondary to cystitis or chronic outlet obstruction. Clinically correlate with urinalysis. Electronically signed by: Fidencio Landis DO (02/27/2019 2:56 AM) [facility] Course & Med Decision Making Course & Med Decision Making Pertinent Labs and Imaging studies reviewed. (See chart for details) patient presents with report of hematuria which occurred early this morning. Patient had been seen similar with admission a few days ago for same. Denies trauma. Denies fever or chills. Denies pain. UA grossly blood. Signs of infection noted. Empiric antibiotics initiated. Labs obtained and posted to chart. H&H stable. CT abdomen/pelvis without acute process appreciated. Intrarenal stone noted. Post void bladder scan obtained with findings that patient is draining bladder and not retaining. Patient requiring admission for further evaluation and treatment. Discussed with Dr. Marie (hospitalist) who is in agreement with admission. Urology consult placed. Discussed findings and plan with patient and family, who acknowledge understanding and agreement. Dragon Disclaimer Dragon Disclaimer This electronic medical record was generated, in whole or in part, using a voice recognition dictation system. Departure Departure Impression: Primary Impression: Hematuria Additional Impression: Urinary tract infection Disposition: ADMITTED INPATIENT Admitting Physician: NENITA Camp) Condition: STABLE Referrals: LUIGI CLARK APRN (PCP) Problem Qualifiers Primary Impression: Hematuria Hematuria type: unspecified type Qualified Codes: R31.9 - Hematuria, unspecified Additional Impression: Urinary tract infection Urinary tract infection type: acute cystitis Hematuria presence: with hematuria Qualified Codes: N30.01 - Acute cystitis with hematuria HASEEB MARINO DO Feb 27, 2019 03:17
[2019-02-27] MEDS ORDERED: ONDANSETRON PF 4 MG/2 ML VIAL. IV PRN (03:30)
[2019-02-27] MEDS ORDERED: MAGNESIUM SULFATE 2GM 50 ML IV ONE (03:30)
[2019-02-27] MEDS ORDERED: DEXTROSE 50% 25 GM / 50ML DISP.SYRIN. IV PRN (03:30)
--- NOTE | 2019-02-27 04:00 | NUR ---
Patient admitted from ER to Room 430 per wheelchair from ER. Admitting diagnosis hematuria, UTI and right kidney stone. Patient was sent home from [place] on 02/26 and came back on 02/27 because his hematuria returned. Patient is A&Ox4.Patient has NKA. Patient denies pain at this time. Will continue to monitor.
[2019-02-27] MEDS ORDERED: CETI10TA16 PO (05:06)
[2019-02-27 07:00] VITALS: BP 118/70
[2019-02-27] MEDS: INSULIN LISPRO 300 UNITS/3 ML INSULN.PEN. SQ SCH ×3 (08:00→17:08)
[2019-02-27 11:00] VITALS: BP 150/70
--- NOTE | 2019-02-27 11:36 | NUR ---
Patients urine this am @07:30 was tea colored cloudy with an odor. Just went in to see patient, he states had urgency to urinate and went to bathroom. I went in bathroom an there was blood red thick urine in the toilet, I then paged Dr. Roblero who is laborer construction or leak gang for [facility] [place] to let him know what is going on. Patient states no dysuria but did note urgency, BP was 150/70 pulse was 48 which patient trends brannon. Addendum: 02/27/19 at 1233 by BROWN GARCIA RN Dr. Roblero requested a bladder scan before his arrival. Bladder scan preformed by Ellen SMILEY with the highest volume reading of 175 and mostly on the right side.
[2019-02-27 12:38] VITALS: BP 150/70
--- NOTE | 2019-02-27 13:07 | PDOC2 ---
UROLOGY CONSULT Date of Consult Date of Consult DATE: 02/27/19 TIME: 13:01 Reason for Consult Reason for Consult: Gross hematuria Identification/Chief Complaint Chief Complaint blood in urine Source Source: Chart review, Patient History of Present Illness Reason for Visit: 74 yo male admitted for gross hematuria. Bleeding started earlier today, initially tea colored urine but not bright red. No clots. No difficulty with bladder emptying. He was admitted 02/25 with same issue and was scheduled for outpatient urology followup. CT 02/27 shows enlarged prostate, bladder wall thickening, renal cyst, and 3 mm nonobstructing right kidney stone. He denies dysuria or flank pain. Feels like he is emptying his bladder well, denies urinary bother. Past Medical History Cardiovascular: HTN CENTRAL NERVOUS SYSTEM: CVA Renal/: No pertinent hx Past Surgical History Past Surgical History: No pertinent history Family History Family History: Heart Disease Social History Social History: Parent No ALCOHOL: none Drugs: None Lives: with Family Current Medications Current Medications Current Medications Ceftriaxone Sodium (Rocephin) 1 gm 1X ONCE IVP Last administered on 02/27/19at 03:10; Start 02/27/19 at 03:15; Stop 02/27/19 at 03:16; Status DC Ceftriaxone Sodium (Rocephin) 1 gm STK-MED ONCE IVP ; Start 02/27/19 at 03:05; Stop 02/27/19 at 03:06; Status DC Dextrose (Dextrose 50%-Water Syringe) 12.5 gm PRN Q15MIN PRN IV SEE COMMENTS; Start 02/27/19 at 03:30 Insulin Human Lispro (HumaLOG) 0-5 UNITS TIDWMEALS SQ ; Start 02/27/19 at 08:00 Magnesium Sulfate 50 ml @ 25 mls/hr 1X ONCE IV Last administered on 02/27/19at 03:32; Start 02/27/19 at 03:30; Stop 02/27/19 at 05:29; Status DC Ondansetron HCl (Zofran) 4 mg PRN Q8HRS PRN IV NAUSEA/VOMITING; Start 02/27/19 at 03:30; Stop 02/28/19 at 03:29 Sodium Chloride 1,000 ml @ 1,000 mls/hr 1X ONCE IV Last administered on 02/27/19at 02:28; Start 02/27/19 at 02:15; Stop 02/27/19 at 03:14; Status DC Allergies Allergies: Coded Allergies: No Known Drug Allergies (Unverified , 02/20/14) ROS Review Of Systems: CONSTITUTIONAL: No fever or chills EYES: No recent changes SKIN: No rash or itching CARDIOVASCULAR: No chest pain, syncope, palpitations, or edema RESPIRATORY: No SOB or cough GASTROINTESTINAL: No nausea, vomiting or abdominal pain NEUROLOGICAL: No headaches or weakness ENDOCRINE: No cold or heat intolerance GENITOURINARY: No urgency or frequency of urination MUSCULOSKELETAL: No back pain or joint pain LYMPHATICS: No enlarged lymph nodes PSYCHIATRIC: No anxiety or depression Physical Exam Physical Exam: General: Pleasant, no acute distress, well groomed Eyes: conjunctiva anicteric, eyes full range of motion ENT: moist oral mucosa, normal dentition Neck: Trachea midline, no masses Respiratory: unlabored breathing, not using accessory muscles, no crackles or wheezes Cardiovascular: Regular rate and rhythm, no peripheral edema Abdomen: nontender, nondistended, no hepatosplenomegaly, no masses Skin: no rashes or skin lesions on visualized skin Psych: normal mood, affect. Alert and oriented x 3. Vitals VITALS Vital Signs Date Time Temp Pulse Resp B/P (MAP) Pulse Ox O2 Delivery O2 Flow Rate FiO2 02/27/19 11:00 98.1 56 18 150/70 (96) 95 Room Air 98.1 Labs Labs Laboratory Tests Test 02/27/19 02:20 02/27/19 07:32 02/27/19 12:06 White Blood Count 4.9 x10^3/uL (4.0-11.0) Red Blood Count 5.26 x10^6/uL (4.30-5.70) Hemoglobin 15.3 g/dL (13.0-17.5) Hematocrit 46.5 % (39.0-53.0) Mean Corpuscular Volume 88 fL (79-100) Mean Corpuscular Hemoglobin 29 pg (25-35) Mean Corpuscular Hemoglobin Concent 33 g/dL (31-37) Red Cell Distribution Width 13.6 % (11.5-14.5) Platelet Count 185 x10^3/uL (140-400) Neutrophils (%) (Auto) 60 % (31-73) Lymphocytes (%) (Auto) 24 % (24-48) Monocytes (%) (Auto) 11 % (0-9) Eosinophils (%) (Auto) 4 % (0-3) Basophils (%) (Auto) 1 % (0-3) Neutrophils # (Auto) 2.9 x10^3uL (1.8-7.7) Lymphocytes # (Auto) 1.2 x10^3/uL (1.0-4.8) Monocytes # (Auto) 0.5 x10^3/uL (0.0-1.1) Eosinophils # (Auto) 0.2 x10^3/uL (0.0-0.7) Basophils # (Auto) 0.0 x10^3/uL (0.0-0.2) Prothrombin Time 15.8 SEC (11.7-14.0) Prothromb Time International Ratio 1.3 (0.8-1.1) Activated Partial Thromboplast Time 31 SEC (24-38) Urine Collection Type Unknown Urine Color Red Urine Clarity Cloudy Urine pH 5.0 Urine Specific [place] 1.020 Urine Protein >=300 mg/dL (NEG-TRACE) Urine Glucose (UA) 500 mg/dL (NEG) Urine Ketones (Stick) 40 mg/dL (NEG) Urine Blood Large (NEG) Urine Nitrite (NEG) Urine Bilirubin Large (NEG) Urine Urobilinogen Dipstick 1.0 mg/dL (0.2 mg/dL) Urine Leukocyte Esterase Large (NEG) Urine RBC Tntc /HPF (0-2) Urine WBC 20-40 /HPF (0-4) Urine Bacteria 0 /HPF (0-FEW) Urine Mucus Mod /LPF Sodium Level 141 mmol/L (136-145) Potassium Level 3.6 mmol/L (3.5-5.1) Chloride Level 103 mmol/L (98-107) Carbon Dioxide Level 26 mmol/L (21-32) Anion Gap 12 (6-14) Blood Urea Nitrogen 32 mg/dL (8-26) Creatinine 1.7 mg/dL (0.7-1.3) Estimated GFR (Cockcroft-Gault) 39.8 BUN/Creatinine Ratio 19 (6-20) Glucose Level 265 mg/dL (70-99) Calcium Level 9.2 mg/dL (8.5-10.1) Magnesium Level 1.7 mg/dL (1.8-2.4) Total Bilirubin 0.6 mg/dL (0.2-1.0) Aspartate Amino Transf (AST/SGOT) 72 U/L (15-37) Alanine Aminotransferase (ALT/SGPT) 151 U/L (16-63) Alkaline Phosphatase 86 U/L (46-116) Total Protein 7.5 g/dL (6.4-8.2) Albumin 3.4 g/dL (3.4-5.0) Albumin/Globulin Ratio 0.8 (1.0-1.7) Glucose (Fingerstick) 192 mg/dL (70-99) 152 mg/dL (70-99) Laboratory Tests Test 02/27/19 02:20 02/27/19 07:32 02/27/19 12:06 White Blood Count 4.9 x10^3/uL (4.0-11.0) Red Blood Count 5.26 x10^6/uL (4.30-5.70) Hemoglobin 15.3 g/dL (13.0-17.5) Hematocrit 46.5 % (39.0-53.0) Mean Corpuscular Volume 88 fL (79-100) Mean Corpuscular Hemoglobin 29 pg (25-35) Mean Corpuscular Hemoglobin Concent 33 g/dL (31-37) Red Cell Distribution Width 13.6 % (11.5-14.5) Platelet Count 185 x10^3/uL (140-400) Neutrophils (%) (Auto) 60 % (31-73) Lymphocytes (%) (Auto) 24 % (24-48) Monocytes (%) (Auto) 11 % (0-9) Eosinophils (%) (Auto) 4 % (0-3) Basophils (%) (Auto) 1 % (0-3) Neutrophils # (Auto) 2.9 x10^3uL (1.8-7.7) Lymphocytes # (Auto) 1.2 x10^3/uL (1.0-4.8) Monocytes # (Auto) 0.5 x10^3/uL (0.0-1.1) Eosinophils # (Auto) 0.2 x10^3/uL (0.0-0.7) Basophils # (Auto) 0.0 x10^3/uL (0.0-0.2) Prothrombin Time 15.8 SEC (11.7-14.0) Prothromb Time International Ratio 1.3 (0.8-1.1) Activated Partial Thromboplast Time 31 SEC (24-38) Urine Collection Type Unknown Urine Color Red Urine Clarity Cloudy Urine pH 5.0 Urine Specific [place] 1.020 Urine Protein >=300 mg/dL (NEG-TRACE) Urine Glucose (UA) 500 mg/dL (NEG) Urine Ketones (Stick) 40 mg/dL (NEG) Urine Blood Large (NEG) Urine Nitrite (NEG) Urine Bilirubin Large (NEG) Urine Urobilinogen Dipstick 1.0 mg/dL (0.2 mg/dL) Urine Leukocyte Esterase Large (NEG) Urine RBC Tntc /HPF (0-2) Urine WBC 20-40 /HPF (0-4) Urine Bacteria 0 /HPF (0-FEW) Urine Mucus Mod /LPF Sodium Level 141 mmol/L (136-145) Potassium Level 3.6 mmol/L (3.5-5.1) Chloride Level 103 mmol/L (98-107) Carbon Dioxide Level 26 mmol/L (21-32) Anion Gap 12 (6-14) Blood Urea Nitrogen 32 mg/dL (8-26) Creatinine 1.7 mg/dL (0.7-1.3) Estimated GFR (Cockcroft-Gault) 39.8 BUN/Creatinine Ratio 19 (6-20) Glucose Level 265 mg/dL (70-99) Calcium Level 9.2 mg/dL (8.5-10.1) Magnesium Level 1.7 mg/dL (1.8-2.4) Total Bilirubin 0.6 mg/dL (0.2-1.0) Aspartate Amino Transf (AST/SGOT) 72 U/L (15-37) Alanine Aminotransferase (ALT/SGPT) 151 U/L (16-63) Alkaline Phosphatase 86 U/L (46-116) Total Protein 7.5 g/dL (6.4-8.2) Albumin 3.4 g/dL (3.4-5.0) Albumin/Globulin Ratio 0.8 (1.0-1.7) Glucose (Fingerstick) 192 mg/dL (70-99) 152 mg/dL (70-99) Assessment/Plan Assessment/Plan Most likely cause of bleeding is BPH. Do not suspect UTI, normal to have WBC in urine in presence of gross heamturia. Bladder wall thickening common in BPH. Start finasteride 5 mg daily for BPH and prostate bleeding. Encouraged fluid intake to flush out blood. Does not need intervention at this time unless he develops large clots in urine and/or difficulty with bladder emptying. Ok to d/c 6/2 if bleeding not worsening. hold blood thinners until bleeding resolves if ok with primary team. Still needs outpatient f/u as scheduled for diagnostic cystoscopy. ALBAN VAUGHAN MD Feb 27, 2019 13:07
[2019-02-27] MEDS: FINASTERIDE 5 MG TABLET. PO SCH (14:25)
[2019-02-27] MEDS ORDERED: FINASTERIDE 5 MG TABLET. PO SCH (14:45)
--- NOTE | 2019-02-27 14:58 | PDOC1 ---
History and Physical Date of Admission Date of Admission 02/27/2019 Identification/Chief Complaint Chief Complaint I am bleeding Source Source: Chart review, Patient History of Present Illness History of Present Illness Patient is a 74-year-old gentleman who was recently admitted to the institution for a similar situation of hematuria. The patient was scheduled for a cystoscopy as an outpatient later in the month. During his last hospital stay the patient had been on several time and Plavix. The patient was advised to stop Plavix and Eliquis was restarted. According to the notes he should've his restarted the medication at least 2 days after being dismissed at seems like he started right away and unfortunately started noticing hematuria once again. This has resolved at the present time urology has seen the patient in consultation already and they have recommending to continue with the current plan of outpatient cystoscopy and holding anticoagulation the present time. Finasteride and has been recommended as well to be started on patient. Patient at time my evaluation is in no acute distress he denies chest pain no palpitations no syncopal episodes no lightheadedness and no signs of orthostasis were reported by the patient. Family members at bedside corroborating the history. Patient denies abdominal discomfort no back pain no CVA tenderness and no dysuria was reported. ER documented a uterine tract infection which seems unlikely in light of the absence of symptoms fever chills or hemodynamic insta bility and patient certainly does not look toxic or infected. Plan of care has been explained detail as were addressed to the best my abilities Past Medical History Cardiovascular: HTN CENTRAL NERVOUS SYSTEM: CVA Renal/: No pertinent hx Past Surgical History Past Surgical History: No pertinent history Family History Family History: Heart Disease Family History: Parent Social History Smoke: No ALCOHOL: none Drugs: None Current Problem List Problem List Problems Medical Problems: (1) Hematuria Status: Acute (2) Urinary tract infection Status: Acute Current Medications Current Medications Current Medications Medications (Trade) Dose Ordered Sig/Mykel Start Time Stop Time Status Last Admin Dose Admin Ceftriaxone Sodium (Rocephin) 1 gm STK-MED ONCE 02/27/19 03:05 02/27/19 03:06 DC Dextrose (Dextrose 50%-Water Syringe) 12.5 gm PRN Q15MIN PRN 02/27/19 03:30 Finasteride (Proscar) 5 mg DAILY 02/27/19 14:00 02/27/19 14:25 5 MG Insulin Human Lispro (HumaLOG) 0-5 UNITS TIDWMEALS 02/27/19 08:00 Magnesium Sulfate 50 ml @ 25 mls/hr 1X ONCE 02/27/19 03:30 02/27/19 05:29 DC 02/27/19 03:32 25 MLS/HR Ondansetron HCl (Zofran) 4 mg PRN Q8HRS PRN 02/27/19 03:30 02/28/19 03:29 Sodium Chloride 1,000 ml @ 1,000 mls/hr 1X ONCE 02/27/19 02:15 02/27/19 03:14 DC 02/27/19 02:28 1,000 MLS/HR Allergies Allergies Allergies Coded Allergies Type Severity Reaction Last Updated Verified No Known Drug Allergies 02/20/14 No ROS Review of System CONSTITUTIONAL: No fever or chills EYES: No recent changes SKIN: No rash or itching CARDIOVASCULAR: No chest pain, syncope, palpitations, or edema RESPIRATORY: No SOB or cough GASTROINTESTINAL: No nausea, vomiting or abdominal pain NEUROLOGICAL: No headaches or weakness ENDOCRINE: No cold or heat intolerance GENITOURINARY: No urgency or frequency of urination MUSCULOSKELETAL: No back pain or joint pain LYMPHATICS: No enlarged lymph nodes PSYCHIATRIC: No anxiety or depression Physical Exam Physical Exam GEN.: No apparent distress. Alert and oriented. HEENT: Head is normocephalic, atraumatic NECK: Supple. LUNGS: Clear to auscultation. HEART: RRR, S1, S2 present. Peripheral pulses intact ABDOMEN: Soft, nontender. Positive bowel sounds. EXTREMITIES: Without any cyanosis. NEUROLOGIC: Normal speech, normal tone PSYCHIATRIC: Normal affect, normal mood. SKIN: No ulcerations Vitals Vitals Vital Signs Date Time Temp Pulse Resp B/P (MAP) Pulse Ox O2 Delivery O2 Flow Rate FiO2 02/27/19 11:00 98.1 56 18 150/70 (96) 95 Room Air 98.1 Labs Labs Laboratory Tests Test 02/27/19 02:20 02/27/19 07:32 02/27/19 12:06 White Blood Count 4.9 x10^3/uL (4.0-11.0) Red Blood Count 5.26 x10^6/uL (4.30-5.70) Hemoglobin 15.3 g/dL (13.0-17.5) Hematocrit 46.5 % (39.0-53.0) Mean Corpuscular Volume 88 fL (79-100) Mean Corpuscular Hemoglobin 29 pg (25-35) Mean Corpuscular Hemoglobin Concent 33 g/dL (31-37) Red Cell Distribution Width 13.6 % (11.5-14.5) Platelet Count 185 x10^3/uL (140-400) Neutrophils (%) (Auto) 60 % (31-73) Lymphocytes (%) (Auto) 24 % (24-48) Monocytes (%) (Auto) 11 % (0-9) Eosinophils (%) (Auto) 4 % (0-3) Basophils (%) (Auto) 1 % (0-3) Neutrophils # (Auto) 2.9 x10^3uL (1.8-7.7) Lymphocytes # (Auto) 1.2 x10^3/uL (1.0-4.8) Monocytes # (Auto) 0.5 x10^3/uL (0.0-1.1) Eosinophils # (Auto) 0.2 x10^3/uL (0.0-0.7) Basophils # (Auto) 0.0 x10^3/uL (0.0-0.2) Prothrombin Time 15.8 SEC (11.7-14.0) Prothromb Time International Ratio 1.3 (0.8-1.1) Activated Partial Thromboplast Time 31 SEC (24-38) Urine Collection Type Unknown Urine Color Red Urine Clarity Cloudy Urine pH 5.0 Urine Specific [place] 1.020 Urine Protein >=300 mg/dL (NEG-TRACE) Urine Glucose (UA) 500 mg/dL (NEG) Urine Ketones (Stick) 40 mg/dL (NEG) Urine Blood Large (NEG) Urine Nitrite (NEG) Urine Bilirubin Large (NEG) Urine Urobilinogen Dipstick 1.0 mg/dL (0.2 mg/dL) Urine Leukocyte Esterase Large (NEG) Urine RBC Tntc /HPF (0-2) Urine WBC 20-40 /HPF (0-4) Urine Bacteria 0 /HPF (0-FEW) Urine Mucus Mod /LPF Sodium Level 141 mmol/L (136-145) Potassium Level 3.6 mmol/L (3.5-5.1) Chloride Level 103 mmol/L (98-107) Carbon Dioxide Level 26 mmol/L (21-32) Anion Gap 12 (6-14) Blood Urea Nitrogen 32 mg/dL (8-26) Creatinine 1.7 mg/dL (0.7-1.3) Estimated GFR (Cockcroft-Gault) 39.8 BUN/Creatinine Ratio 19 (6-20) Glucose Level 265 mg/dL (70-99) Calcium Level 9.2 mg/dL (8.5-10.1) Magnesium Level 1.7 mg/dL (1.8-2.4) Total Bilirubin 0.6 mg/dL (0.2-1.0) Aspartate Amino Transf (AST/SGOT) 72 U/L (15-37) Alanine Aminotransferase (ALT/SGPT) 151 U/L (16-63) Alkaline Phosphatase 86 U/L (46-116) Total Protein 7.5 g/dL (6.4-8.2) Albumin 3.4 g/dL (3.4-5.0) Albumin/Globulin Ratio 0.8 (1.0-1.7) Glucose (Fingerstick) 192 mg/dL (70-99) 152 mg/dL (70-99) Laboratory Tests Test 02/27/19 02:20 02/27/19 07:32 02/27/19 12:06 White Blood Count 4.9 x10^3/uL (4.0-11.0) Red Blood Count 5.26 x10^6/uL (4.30-5.70) Hemoglobin 15.3 g/dL (13.0-17.5) Hematocrit 46.5 % (39.0-53.0) Mean Corpuscular Volume 88 fL (79-100) Mean Corpuscular Hemoglobin 29 pg (25-35) Mean Corpuscular Hemoglobin Concent 33 g/dL (31-37) Red Cell Distribution Width 13.6 % (11.5-14.5) Platelet Count 185 x10^3/uL (140-400) Neutrophils (%) (Auto) 60 % (31-73) Lymphocytes (%) (Auto) 24 % (24-48) Monocytes (%) (Auto) 11 % (0-9) Eosinophils (%) (Auto) 4 % (0-3) Basophils (%) (Auto) 1 % (0-3) Neutrophils # (Auto) 2.9 x10^3uL (1.8-7.7) Lymphocytes # (Auto) 1.2 x10^3/uL (1.0-4.8) Monocytes # (Auto) 0.5 x10^3/uL (0.0-1.1) Eosinophils # (Auto) 0.2 x10^3/uL (0.0-0.7) Basophils # (Auto) 0.0 x10^3/uL (0.0-0.2) Prothrombin Time 15.8 SEC (11.7-14.0) Prothromb Time International Ratio 1.3 (0.8-1.1) Activated Partial Thromboplast Time 31 SEC (24-38) Urine Collection Type Unknown Urine Color Red Urine Clarity Cloudy Urine pH 5.0 Urine Specific [place] 1.020 Urine Protein >=300 mg/dL (NEG-TRACE) Urine Glucose (UA) 500 mg/dL (NEG) Urine Ketones (Stick) 40 mg/dL (NEG) Urine Blood Large (NEG) Urine Nitrite (NEG) Urine Bilirubin Large (NEG) Urine Urobilinogen Dipstick 1.0 mg/dL (0.2 mg/dL) Urine Leukocyte Esterase Large (NEG) Urine RBC Tntc /HPF (0-2) Urine WBC 20-40 /HPF (0-4) Urine Bacteria 0 /HPF (0-FEW) Urine Mucus Mod /LPF Sodium Level 141 mmol/L (136-145) Potassium Level 3.6 mmol/L (3.5-5.1) Chloride Level 103 mmol/L (98-107) Carbon Dioxide Level 26 mmol/L (21-32) Anion Gap 12 (6-14) Blood Urea Nitrogen 32 mg/dL (8-26) Creatinine 1.7 mg/dL (0.7-1.3) Estimated GFR (Cockcroft-Gault) 39.8 BUN/Creatinine Ratio 19 (6-20) Glucose Level 265 mg/dL (70-99) Calcium Level 9.2 mg/dL (8.5-10.1) Magnesium Level 1.7 mg/dL (1.8-2.4) Total Bilirubin 0.6 mg/dL (0.2-1.0) Aspartate Amino Transf (AST/SGOT) 72 U/L (15-37) Alanine Aminotransferase (ALT/SGPT) 151 U/L (16-63) Alkaline Phosphatase 86 U/L (46-116) Total Protein 7.5 g/dL (6.4-8.2) Albumin 3.4 g/dL (3.4-5.0) Albumin/Globulin Ratio 0.8 (1.0-1.7) Glucose (Fingerstick) 192 mg/dL (70-99) 152 mg/dL (70-99) VTE Prophylaxis Ordered VTE Prophylaxis Devices: Yes VTE Pharmacological Prophylaxi: No Assessment/Plan Assessment/Plan Hematuria secondary to BPH History of chronic systolic dysfunction with EF of 20% History of essential hypertension History of diabetes mellitus type 2 Dyslipidemia Chronic anticoagulation for atrial fibrillation Plan: On anticoagulation Hold Plavix Resume home medications Start finasteride Repeat H&H in the a.m. if patient remains hemodynamically stable and normal H&H in the morning may be discharged to follow-up in the outpatient setting Further recommendations based on the clinical course KENTRELL IRVING MD Feb 27, 2019 14:58
[2019-02-27 15:00] VITALS: BP 164/77
[2019-02-27 19:00] VITALS: BP 112/67
[2019-02-27] MEDS: APIXABAN 5 MG TABLET. PO SCH (22:04)
[2019-02-27] MEDS: ATORVASTATIN CALCIUM 40 MG TABLET. PO SCH (22:04)
[2019-02-27] MEDS: AMIODARONE HCL 200 MG TABLET. PO SCH (22:05)
[2019-02-27] MEDS: METOPROLOL SUCC 24HR ER 25 MG TAB.ER.24H. PO SCH (22:05)
[2019-02-27 23:00] VITALS: BP 113/57
[2019-02-28 03:00] VITALS: BP 111/57
[2019-02-28 07:00] VITALS: BP 123/60
[2019-02-28 08:00] LABS: CALCIUM 8.7 mg/dL (8.5-10.1); CREATININE 1.4 mg/dL (0.7-1.3); GFR 49.8; POTASSIUM 4.4 mmol/L (3.5-5.1)
[2019-02-28 08:01] LABS: BASO % 1 % (0-3); EOS # 0.2 x10^3/uL (0.0-0.7); EOS % 4 % (0-3); HEMATOCRIT 44.5 % (39.0-53.0); HEMOGLOBIN 14.4 g/dL (13.0-17.5); LYMPH # 0.9 x10^3/uL (1.0-4.8); LYMPH % 18 % (24-48); MEAN CORPUSCULAR HEMOGLOBIN 29 pg (25-35); MEAN CORPUSCULAR HGB CONC 32 g/dL (31-37); MEAN CORPUSCULAR VOLUME 88 fL (79-100); MONO # 0.5 x10^3/uL (0.0-1.1); MONO % 9 % (0-9); NEUT # 3.3 x10^3uL (1.8-7.7); NEUT % 68 % (31-73); PLATELET COUNT 170 x10^3/uL (140-400); RED BLOOD COUNT 5.04 x10^6/uL (4.30-5.70); RED CELL DISTRIBUTION WIDTH 13.7 % (11.5-14.5); WHITE BLOOD COUNT 4.9 x10^3/uL (4.0-11.0)
[2019-02-28] MEDS: GLIMEPIRIDE 2 MG TABLET. PO SCH (08:43)
[2019-02-28] MEDS: FINASTERIDE 5 MG TABLET. PO SCH (08:43)
[2019-02-28] MEDS: APIXABAN 5 MG TABLET. PO SCH ×2 (08:43→09:00)
[2019-02-28] MEDS: ISOSORBIDE MONONITRATE ER 30 MG TAB.ER.24H PO SCH (08:44)
[2019-02-28] MEDS: LOSARTAN POTASSIUM 50 MG TABLET. PO SCH (08:44)
[2019-02-28] MEDS: CETIRIZINE HCL 10 MG TABLET. PO SCH (08:44)
[2019-02-28] MEDS: hydroCHLOROthiazide 12.5 MG CAPSULE PO SCH (08:44)
[2019-02-28] MEDS: INSULIN LISPRO 300 UNITS/3 ML INSULN.PEN. SQ SCH ×3 (08:52→17:35)
[2019-02-28] MEDS ORDERED: ERGOCALCIFEROL (VITAMIN D2) 50,000 UNIT CAPSULE. PO SCH (09:00)
[2019-02-28 11:00] VITALS: BP 121/66
--- NOTE | 2019-02-28 13:59 | PDOC ---
PROGRESS NOTES Chief Complaint Chief Complaint Hematuria secondary to BPH History of chronic systolic dysfunction with EF of 20% History of essential hypertension History of diabetes mellitus type 2 Dyslipidemia Chronic anticoagulation for atrial fibrillation currently will place on hold given hematuria. Plan: Off anticoagulation, will hold eliquis upon discharge until follow up wth PCP has been done. Patient scheduled to see urology in the outpatient setting at the end of this month, no intervention deemed necessary at the present time. Hold Plavix Resume home medications Start finasteride discharge once bleeding has subsided Further recommendations based on the clinical course History of Present Illness History of Present Illness In no acute distress. Continues to have bleeding reported overnight. This has been less compared to admission no chest pain no palpitations no shortness of breath no signs of orthostasis or hemodynamic instability reassurance provided to the patient all of his concerns were addressed to the best of my abilities Vitals Vitals Vital Signs Date Time Temp Pulse Resp B/P (MAP) Pulse Ox O2 Delivery O2 Flow Rate FiO2 02/28/19 11:00 98.4 48 18 121/66 (84) 97 Room Air 98.4 Labs LABS Laboratory Tests Test 02/27/19 17:02 02/27/19 21:15 02/28/19 07:36 02/28/19 07:40 Glucose (Fingerstick) 249 mg/dL (70-99) 175 mg/dL (70-99) 208 mg/dL (70-99) White Blood Count 4.9 x10^3/uL (4.0-11.0) Red Blood Count 5.04 x10^6/uL (4.30-5.70) Hemoglobin 14.4 g/dL (13.0-17.5) Hematocrit 44.5 % (39.0-53.0) Mean Corpuscular Volume 88 fL (79-100) Mean Corpuscular Hemoglobin 29 pg (25-35) Mean Corpuscular Hemoglobin Concent 32 g/dL (31-37) Red Cell Distribution Width 13.7 % (11.5-14.5) Platelet Count 170 x10^3/uL (140-400) Neutrophils (%) (Auto) 68 % (31-73) Lymphocytes (%) (Auto) 18 % (24-48) Monocytes (%) (Auto) 9 % (0-9) Eosinophils (%) (Auto) 4 % (0-3) Basophils (%) (Auto) 1 % (0-3) Neutrophils # (Auto) 3.3 x10^3uL (1.8-7.7) Lymphocytes # (Auto) 0.9 x10^3/uL (1.0-4.8) Monocytes # (Auto) 0.5 x10^3/uL (0.0-1.1) Eosinophils # (Auto) 0.2 x10^3/uL (0.0-0.7) Basophils # (Auto) 0.0 x10^3/uL (0.0-0.2) Sodium Level 140 mmol/L (136-145) Potassium Level 4.4 mmol/L (3.5-5.1) Chloride Level 107 mmol/L (98-107) Carbon Dioxide Level 24 mmol/L (21-32) Anion Gap 9 (6-14) Blood Urea Nitrogen 24 mg/dL (8-26) Creatinine 1.4 mg/dL (0.7-1.3) Estimated GFR (Cockcroft-Gault) 49.8 Glucose Level 213 mg/dL (70-99) Calcium Level 8.7 mg/dL (8.5-10.1) Test 02/28/19 11:27 Glucose (Fingerstick) 341 mg/dL (70-99) Review of Systems Review of Systems Pertinent as per history of present illness otherwise 14 point review of system is negative Assessment and Plan Assessmemt and Plan Problems Medical Problems: (1) Hematuria Status: Acute (2) Urinary tract infection Status: Acute Comment Review of Relevant I have reviewed the following items cristel (where applicable) has been applied. Labs Laboratory Tests Test 02/27/19 02:20 02/27/19 07:32 02/27/19 12:06 02/27/19 17:02 White Blood Count 4.9 x10^3/uL (4.0-11.0) Red Blood Count 5.26 x10^6/uL (4.30-5.70) Hemoglobin 15.3 g/dL (13.0-17.5) Hematocrit 46.5 % (39.0-53.0) Mean Corpuscular Volume 88 fL (79-100) Mean Corpuscular Hemoglobin 29 pg (25-35) Mean Corpuscular Hemoglobin Concent 33 g/dL (31-37) Red Cell Distribution Width 13.6 % (11.5-14.5) Platelet Count 185 x10^3/uL (140-400) Neutrophils (%) (Auto) 60 % (31-73) Lymphocytes (%) (Auto) 24 % (24-48) Monocytes (%) (Auto) 11 % (0-9) Eosinophils (%) (Auto) 4 % (0-3) Basophils (%) (Auto) 1 % (0-3) Neutrophils # (Auto) 2.9 x10^3uL (1.8-7.7) Lymphocytes # (Auto) 1.2 x10^3/uL (1.0-4.8) Monocytes # (Auto) 0.5 x10^3/uL (0.0-1.1) Eosinophils # (Auto) 0.2 x10^3/uL (0.0-0.7) Basophils # (Auto) 0.0 x10^3/uL (0.0-0.2) Prothrombin Time 15.8 SEC (11.7-14.0) Prothromb Time International Ratio 1.3 (0.8-1.1) Activated Partial Thromboplast Time 31 SEC (24-38) Urine Collection Type Unknown Urine Color Red Urine Clarity Cloudy Urine pH 5.0 Urine Specific [place] 1.020 Urine Protein >=300 mg/dL (NEG-TRACE) Urine Glucose (UA) 500 mg/dL (NEG) Urine Ketones (Stick) 40 mg/dL (NEG) Urine Blood Large (NEG) Urine Nitrite (NEG) Urine Bilirubin Large (NEG) Urine Urobilinogen Dipstick 1.0 mg/dL (0.2 mg/dL) Urine Leukocyte Esterase Large (NEG) Urine RBC Tntc /HPF (0-2) Urine WBC 20-40 /HPF (0-4) Urine Bacteria 0 /HPF (0-FEW) Urine Mucus Mod /LPF Sodium Level 141 mmol/L (136-145) Potassium Level 3.6 mmol/L (3.5-5.1) Chloride Level 103 mmol/L (98-107) Carbon Dioxide Level 26 mmol/L (21-32) Anion Gap 12 (6-14) Blood Urea Nitrogen 32 mg/dL (8-26) Creatinine 1.7 mg/dL (0.7-1.3) Estimated GFR (Cockcroft-Gault) 39.8 BUN/Creatinine Ratio 19 (6-20) Glucose Level 265 mg/dL (70-99) Calcium Level 9.2 mg/dL (8.5-10.1) Magnesium Level 1.7 mg/dL (1.8-2.4) Total Bilirubin 0.6 mg/dL (0.2-1.0) Aspartate Amino Transf (AST/SGOT) 72 U/L (15-37) Alanine Aminotransferase (ALT/SGPT) 151 U/L (16-63) Alkaline Phosphatase 86 U/L (46-116) Total Protein 7.5 g/dL (6.4-8.2) Albumin 3.4 g/dL (3.4-5.0) Albumin/Globulin Ratio 0.8 (1.0-1.7) Glucose (Fingerstick) 192 mg/dL (70-99) 152 mg/dL (70-99) 249 mg/dL (70-99) Test 02/27/19 21:15 02/28/19 07:36 02/28/19 07:40 02/28/19 11:27 Glucose (Fingerstick) 175 mg/dL (70-99) 208 mg/dL (70-99) 341 mg/dL (70-99) White Blood Count 4.9 x10^3/uL (4.0-11.0) Red Blood Count 5.04 x10^6/uL (4.30-5.70) Hemoglobin 14.4 g/dL (13.0-17.5) Hematocrit 44.5 % (39.0-53.0) Mean Corpuscular Volume 88 fL (79-100) Mean Corpuscular Hemoglobin 29 pg (25-35) Mean Corpuscular Hemoglobin Concent 32 g/dL (31-37) Red Cell Distribution Width 13.7 % (11.5-14.5) Platelet Count 170 x10^3/uL (140-400) Neutrophils (%) (Auto) 68 % (31-73) Lymphocytes (%) (Auto) 18 % (24-48) Monocytes (%) (Auto) 9 % (0-9) Eosinophils (%) (Auto) 4 % (0-3) Basophils (%) (Auto) 1 % (0-3) Neutrophils # (Auto) 3.3 x10^3uL (1.8-7.7) Lymphocytes # (Auto) 0.9 x10^3/uL (1.0-4.8) Monocytes # (Auto) 0.5 x10^3/uL (0.0-1.1) Eosinophils # (Auto) 0.2 x10^3/uL (0.0-0.7) Basophils # (Auto) 0.0 x10^3/uL (0.0-0.2) Sodium Level 140 mmol/L (136-145) Potassium Level 4.4 mmol/L (3.5-5.1) Chloride Level 107 mmol/L (98-107) Carbon Dioxide Level 24 mmol/L (21-32) Anion Gap 9 (6-14) Blood Urea Nitrogen 24 mg/dL (8-26) Creatinine 1.4 mg/dL (0.7-1.3) Estimated GFR (Cockcroft-Gault) 49.8 Glucose Level 213 mg/dL (70-99) Calcium Level 8.7 mg/dL (8.5-10.1) Laboratory Tests Test 02/27/19 17:02 02/27/19 21:15 02/28/19 07:36 02/28/19 07:40 Glucose (Fingerstick) 249 mg/dL (70-99) 175 mg/dL (70-99) 208 mg/dL (70-99) White Blood Count 4.9 x10^3/uL (4.0-11.0) Red Blood Count 5.04 x10^6/uL (4.30-5.70) Hemoglobin 14.4 g/dL (13.0-17.5) Hematocrit 44.5 % (39.0-53.0) Mean Corpuscular Volume 88 fL (79-100) Mean Corpuscular Hemoglobin 29 pg (25-35) Mean Corpuscular Hemoglobin Concent 32 g/dL (31-37) Red Cell Distribution Width 13.7 % (11.5-14.5) Platelet Count 170 x10^3/uL (140-400) Neutrophils (%) (Auto) 68 % (31-73) Lymphocytes (%) (Auto) 18 % (24-48) Monocytes (%) (Auto) 9 % (0-9) Eosinophils (%) (Auto) 4 % (0-3) Basophils (%) (Auto) 1 % (0-3) Neutrophils # (Auto) 3.3 x10^3uL (1.8-7.7) Lymphocytes # (Auto) 0.9 x10^3/uL (1.0-4.8) Monocytes # (Auto) 0.5 x10^3/uL (0.0-1.1) Eosinophils # (Auto) 0.2 x10^3/uL (0.0-0.7) Basophils # (Auto) 0.0 x10^3/uL (0.0-0.2) Sodium Level 140 mmol/L (136-145) Potassium Level 4.4 mmol/L (3.5-5.1) Chloride Level 107 mmol/L (98-107) Carbon Dioxide Level 24 mmol/L (21-32) Anion Gap 9 (6-14) Blood Urea Nitrogen 24 mg/dL (8-26) Creatinine 1.4 mg/dL (0.7-1.3) Estimated GFR (Cockcroft-Gault) 49.8 Glucose Level 213 mg/dL (70-99) Calcium Level 8.7 mg/dL (8.5-10.1) Test 02/28/19 11:27 Glucose (Fingerstick) 341 mg/dL (70-99) Medications Current Medications Sodium Chloride 1,000 ml @ 1,000 mls/hr 1X ONCE IV Last administered on 02/27/19at 02:28; Start 02/27/19 at 02:15; Stop 02/27/19 at 03:14; Status DC Ceftriaxone Sodium (Rocephin) 1 gm 1X ONCE IVP Last administered on 02/27/19at 03:10; Start 02/27/19 at 03:15; Stop 02/27/19 at 03:16; Status DC Ceftriaxone Sodium (Rocephin) 1 gm STK-MED ONCE IVP ; Start 02/27/19 at 03:05; Stop 02/27/19 at 03:06; Status DC Magnesium Sulfate 50 ml @ 25 mls/hr 1X ONCE IV Last administered on 02/27/19at 03:32; Start 02/27/19 at 03:30; Stop 02/27/19 at 05:29; Status DC Ondansetron HCl (Zofran) 4 mg PRN Q8HRS PRN IV NAUSEA/VOMITING; Start 02/27/19 at 03:30; Stop 02/28/19 at 03:29; Status DC Insulin Human Lispro (HumaLOG) 0-5 UNITS TIDWMEALS SQ Last administered on 02/28/19at 12:21; Start 02/27/19 at 08:00 Dextrose (Dextrose 50%-Water Syringe) 12.5 gm PRN Q15MIN PRN IV SEE COMMENTS; Start 02/27/19 at 03:30 Finasteride (Proscar) 5 mg DAILY PO Last administered on 02/28/19at 08:43; Start 02/27/19 at 14:00 Finasteride (Proscar) 5 mg DAILY PO ; Start 02/27/19 at 14:45; Status UNV Amiodarone HCl (Cordarone) 200 mg HS PO Last administered on 02/27/19at 22:05; Start 02/27/19 at 21:00 Apixaban (Eliquis) 5 mg BID PO Last administered on 02/27/19 22:04; Start 02/27/19 at 21:00; Stop 02/28/19 at 09:27; Status DC Atorvastatin Calcium (Lipitor) 40 mg QHS PO Last administered on 02/27/19 22:04; Start 02/27/19 at 21:00 Cetirizine HCl (ZyrTEC) 10 mg DAILY PO Last administered on 02/28/19 08:44; Start 02/28/19 at 09:00 Glimepiride (Amaryl) 2 mg DAILY PO Last administered on 02/28/19 08:43; Start 02/28/19 at 09:00 Isosorbide Mononitrate (Imdur) 30 mg DAILY PO Last administered on 02/28/19 08:44; Start 02/28/19 at 09:00 Metoprolol Succinate (Toprol Xl) 50 mg HS PO Last administered on 02/27/19 22:05; Start 02/27/19 at 21:00 Ergocalciferol (Vitamin D2) 50,000 unit [place] PO Last administered on 02/28/19 08:43; Start 02/28/19 at 09:00 Hydrochlorothiazide (Microzide) 12.5 mg DAILY PO Last administered on 02/28/19 08:44; Start 02/28/19 at 09:00 Losartan Potassium (Cozaar) 50 mg DAILY PO Last administered on 02/28/19at 08:44; Start 02/28/19 at 09:00 Active Scripts Active Atorvastatin Calcium 40 Mg Tablet 40 Mg PO QHS 30 Days Eliquis (Apixaban) 5 Mg Tablet 5 Mg PO BID 30 Days Reported Cetirizine Hcl 10 Mg Tablet 1 Tab PO DAILY Amiodarone Hcl 200 Mg Tablet 1 Tab PO HS Metoprolol Succinate ( Xl ) (Metoprolol Succinate) 25 Mg Tab.er.24h 50 Mg PO HS Isosorbide Mononitrate Er (Isosorbide Mononitrate) 30 Mg Tab.er.24h 1 Tab PO DAILY Glimepiride 2 Mg Tablet 1 Tab PO DAILY Vitamin D (Cholecalciferol (Vitamin D3)) 50,000 Unit Capsule 50,000 Unit PO QSU Losartan-Hctz 50-12.5 Mg Tab (Losartan/Hydrochlorothiazide) 1 Each Tablet 1 Tab PO DAILY Vitals/I & O Vital Sign - Last 24 Hours 02/27/19 02/27/19 02/27/19 02/27/19 15:00 19:00 20:00 22:05 Temp 98.0 98.3 98.0 98.3 Pulse 50 52 56 Resp 18 18 B/P (MAP) 164/77 (106) 112/67 (82) 116/56 Pulse Ox 96 97 O2 Delivery Room Air Room Air Room Air 02/27/19 02/27/19 02/28/19 02/28/19 22:05 23:00 03:00 07:00 Temp 98.0 97.9 98.1 98.0 97.9 98.1 Pulse 56 51 49 44 Resp 16 18 18 B/P (MAP) 116/64 113/57 (75) 111/57 (75) 123/60 (81) Pulse Ox 97 97 O2 Delivery Room Air Room Air Room Air 02/28/19 02/28/19 02/28/19 02/28/19 08:00 08:44 08:44 11:00 Temp 98.4 98.4 Pulse 44 44 48 Resp 18 B/P (MAP) 123/60 123/60 121/66 (84) Pulse Ox 97 O2 Delivery Room Air Room Air Intake and Output 0 02/27/19 02/27/19 02/28/19 15:00 23:00 07:00 Intake Total 200 ml 400 ml Output Total 180 ml 200 ml Balance -180 ml 0 ml 400 ml KENTRELL IRVING MD Feb 28, 2019 13:59
--- NOTE | 2019-02-28 14:47 | PDOC ---
PROGRESS NOTE SUBJECTIVE: ROS: ROS: RESPIRATORY: Shortness of breath denies. Cough denies. UROLOGY: Denies blood in urine. Denies difficulty urinating HPI: Patient reports that hematuria has resolved. No complaints. Problems: Problems Medical Problems: (1) Hematuria Status: Acute (2) Urinary tract infection Status: Acute OBJECTIVE: Vital Signs: Vital Signs Date Time Temp Pulse Resp B/P (MAP) Pulse Ox O2 Delivery O2 Flow Rate FiO2 02/28/19 11:00 98.4 48 18 121/66 (84) 97 Room Air 98.4 02/28/19 08:44 44 123/60 02/28/19 08:44 44 123/60 02/28/19 08:00 Room Air 02/28/19 07:00 98.1 44 18 123/60 (81) 97 Room Air 98.1 02/28/19 03:00 97.9 49 18 111/57 (75) 97 Room Air 97.9 02/27/19 23:00 98.0 51 16 113/57 (75) Room Air 98.0 02/27/19 22:05 56 116/64 02/27/19 22:05 56 116/56 02/27/19 20:00 Room Air 02/27/19 19:00 98.3 52 18 112/67 (82) 97 Room Air 98.3 02/27/19 15:00 98.0 50 18 164/77 (106) 96 Room Air 98.0 I & O Intake and Output 02/28/19 07:00 Intake Total 600 ml Output Total 380 ml Balance 220 ml Intake Oral 600 ml Output Urine Total 380 ml PHYSICAL EXAM: Physical Exam: General: Pleasant, no acute distress, well groomed Respiratory: unlabored breathing Cardiovascular: no peripheral edema Abdomen: nontender, nondistended Skin: no rashes or skin lesions on visualized skin Psych: normal mood, affect. Alert and oriented x 3. LABS: Laboratory Tests Test 02/27/19 02:20 02/27/19 07:32 02/27/19 12:06 02/27/19 17:02 White Blood Count 4.9 x10^3/uL (4.0-11.0) Red Blood Count 5.26 x10^6/uL (4.30-5.70) Hemoglobin 15.3 g/dL (13.0-17.5) Hematocrit 46.5 % (39.0-53.0) Mean Corpuscular Volume 88 fL (79-100) Mean Corpuscular Hemoglobin 29 pg (25-35) Mean Corpuscular Hemoglobin Concent 33 g/dL (31-37) Red Cell Distribution Width 13.6 % (11.5-14.5) Platelet Count 185 x10^3/uL (140-400) Neutrophils (%) (Auto) 60 % (31-73) Lymphocytes (%) (Auto) 24 % (24-48) Monocytes (%) (Auto) 11 % (0-9) Eosinophils (%) (Auto) 4 % (0-3) Basophils (%) (Auto) 1 % (0-3) Neutrophils # (Auto) 2.9 x10^3uL (1.8-7.7) Lymphocytes # (Auto) 1.2 x10^3/uL (1.0-4.8) Monocytes # (Auto) 0.5 x10^3/uL (0.0-1.1) Eosinophils # (Auto) 0.2 x10^3/uL (0.0-0.7) Basophils # (Auto) 0.0 x10^3/uL (0.0-0.2) Prothrombin Time 15.8 SEC (11.7-14.0) Prothromb Time International Ratio 1.3 (0.8-1.1) Activated Partial Thromboplast Time 31 SEC (24-38) Urine Collection Type Unknown Urine Color Red Urine Clarity Cloudy Urine pH 5.0 Urine Specific [place] 1.020 Urine Protein >=300 mg/dL (NEG-TRACE) Urine Glucose (UA) 500 mg/dL (NEG) Urine Ketones (Stick) 40 mg/dL (NEG) Urine Blood Large (NEG) Urine Nitrite (NEG) Urine Bilirubin Large (NEG) Urine Urobilinogen Dipstick 1.0 mg/dL (0.2 mg/dL) Urine Leukocyte Esterase Large (NEG) Urine RBC Tntc /HPF (0-2) Urine WBC 20-40 /HPF (0-4) Urine Bacteria 0 /HPF (0-FEW) Urine Mucus Mod /LPF Sodium Level 141 mmol/L (136-145) Potassium Level 3.6 mmol/L (3.5-5.1) Chloride Level 103 mmol/L (98-107) Carbon Dioxide Level 26 mmol/L (21-32) Anion Gap 12 (6-14) Blood Urea Nitrogen 32 mg/dL (8-26) Creatinine 1.7 mg/dL (0.7-1.3) Estimated GFR (Cockcroft-Gault) 39.8 BUN/Creatinine Ratio 19 (6-20) Glucose Level 265 mg/dL (70-99) Calcium Level 9.2 mg/dL (8.5-10.1) Magnesium Level 1.7 mg/dL (1.8-2.4) Total Bilirubin 0.6 mg/dL (0.2-1.0) Aspartate Amino Transf (AST/SGOT) 72 U/L (15-37) Alanine Aminotransferase (ALT/SGPT) 151 U/L (16-63) Alkaline Phosphatase 86 U/L (46-116) Total Protein 7.5 g/dL (6.4-8.2) Albumin 3.4 g/dL (3.4-5.0) Albumin/Globulin Ratio 0.8 (1.0-1.7) Glucose (Fingerstick) 192 mg/dL (70-99) 152 mg/dL (70-99) 249 mg/dL (70-99) Test 02/27/19 21:15 02/28/19 07:36 02/28/19 07:40 02/28/19 11:27 Glucose (Fingerstick) 175 mg/dL (70-99) 208 mg/dL (70-99) 341 mg/dL (70-99) White Blood Count 4.9 x10^3/uL (4.0-11.0) Red Blood Count 5.04 x10^6/uL (4.30-5.70) Hemoglobin 14.4 g/dL (13.0-17.5) Hematocrit 44.5 % (39.0-53.0) Mean Corpuscular Volume 88 fL (79-100) Mean Corpuscular Hemoglobin 29 pg (25-35) Mean Corpuscular Hemoglobin Concent 32 g/dL (31-37) Red Cell Distribution Width 13.7 % (11.5-14.5) Platelet Count 170 x10^3/uL (140-400) Neutrophils (%) (Auto) 68 % (31-73) Lymphocytes (%) (Auto) 18 % (24-48) Monocytes (%) (Auto) 9 % (0-9) Eosinophils (%) (Auto) 4 % (0-3) Basophils (%) (Auto) 1 % (0-3) Neutrophils # (Auto) 3.3 x10^3uL (1.8-7.7) Lymphocytes # (Auto) 0.9 x10^3/uL (1.0-4.8) Monocytes # (Auto) 0.5 x10^3/uL (0.0-1.1) Eosinophils # (Auto) 0.2 x10^3/uL (0.0-0.7) Basophils # (Auto) 0.0 x10^3/uL (0.0-0.2) Sodium Level 140 mmol/L (136-145) Potassium Level 4.4 mmol/L (3.5-5.1) Chloride Level 107 mmol/L (98-107) Carbon Dioxide Level 24 mmol/L (21-32) Anion Gap 9 (6-14) Blood Urea Nitrogen 24 mg/dL (8-26) Creatinine 1.4 mg/dL (0.7-1.3) Estimated GFR (Cockcroft-Gault) 49.8 Glucose Level 213 mg/dL (70-99) Calcium Level 8.7 mg/dL (8.5-10.1) MEDICATIONS: Current Medications Medications (Trade) Dose Ordered Sig/Mykel Start Time Stop Time Status Last Admin Dose Admin Amiodarone HCl (Cordarone) 200 mg HS 02/27/19 21:00 02/27/19 22:05 200 MG Apixaban (Eliquis) 5 mg BID 02/27/19 21:00 02/28/19 09:27 DC 02/27/19 22:04 5 MG Atorvastatin Calcium (Lipitor) 40 mg QHS 02/27/19 21:00 02/27/19 22:04 40 MG Ceftriaxone Sodium (Rocephin) 1 gm STK-MED ONCE 02/27/19 03:05 02/27/19 03:06 DC Cetirizine HCl (ZyrTEC) 10 mg DAILY 02/28/19 09:00 02/28/19 08:44 10 MG Dextrose (Dextrose 50%-Water Syringe) 12.5 gm PRN Q15MIN PRN 02/27/19 03:30 Ergocalciferol (Vitamin D2) 50,000 unit [place] 02/28/19 09:00 02/28/19 08:43 50,000 UNIT Finasteride (Proscar) 5 mg DAILY 02/27/19 14:45 UNV Glimepiride (Amaryl) 2 mg DAILY 02/28/19 09:00 02/28/19 08:43 2 MG Hydrochlorothiazide (Microzide) 12.5 mg DAILY 02/28/19 09:00 02/28/19 08:44 12.5 MG Insulin Human Lispro (HumaLOG) 0-5 UNITS TIDWMEALS 02/27/19 08:00 02/28/19 12:21 5 UNITS Isosorbide Mononitrate (Imdur) 30 mg DAILY 02/28/19 09:00 02/28/19 08:44 30 MG Losartan Potassium (Cozaar) 50 mg DAILY 02/28/19 09:00 02/28/19 08:44 50 MG Magnesium Sulfate 50 ml @ 25 mls/hr 1X ONCE 02/27/19 03:30 02/27/19 05:29 DC 02/27/19 03:32 25 MLS/HR Metoprolol Succinate (Toprol Xl) 50 mg HS 02/27/19 21:00 02/27/19 22:05 50 MG Ondansetron HCl (Zofran) 4 mg PRN Q8HRS PRN 02/27/19 03:30 02/28/19 03:29 DC Sodium Chloride 1,000 ml @ 1,000 mls/hr 1X ONCE 02/27/19 02:15 02/27/19 03:14 DC 02/27/19 02:28 1,000 MLS/HR ASSESSMENT & PLAN Hematuria - resolved. ok to take blood thinners. ok to discharge from urology perspective. He has followup scheduled with me later this month. BPH - continue finasteride 5 mg daily after discharge. Problem List: Problems Medical Problems: (1) Hematuria Status: Acute (2) Urinary tract infection Status: Acute ALBAN VAUGHAN MD Feb 28, 2019 14:47
[2019-02-28 15:00] VITALS: BP 136/61
[2019-02-28 19:00] VITALS: BP 139/62
[2019-02-28] MEDS: ATORVASTATIN CALCIUM 40 MG TABLET. PO SCH (20:22)
[2019-02-28] MEDS: AMIODARONE HCL 200 MG TABLET. PO SCH (20:23)
[2019-02-28] MEDS: METOPROLOL SUCC 24HR ER 25 MG TAB.ER.24H. PO SCH (20:23)
[2019-02-28 23:00] VITALS: BP 106/53
[2019-03-01 03:00] VITALS: BP 107/57
[2019-03-01 07:00] VITALS: BP 120/68
[2019-03-01] MEDS: INSULIN LISPRO 300 UNITS/3 ML INSULN.PEN. SQ SCH ×2 (08:00→11:48)
[2019-03-01] MEDS ORDERED: FINA5TAB4 PO (09:48)
[2019-03-01 11:00] VITALS: BP 152/80
[2019-03-01] MEDS: FINASTERIDE 5 MG TABLET. PO SCH (11:28)
[2019-03-01] MEDS: GLIMEPIRIDE 2 MG TABLET. PO SCH (11:28)
[2019-03-01] MEDS: hydroCHLOROthiazide 12.5 MG CAPSULE PO SCH (11:29)
[2019-03-01] MEDS: CETIRIZINE HCL 10 MG TABLET. PO SCH (11:30)
[2019-03-01] MEDS: LOSARTAN POTASSIUM 50 MG TABLET. PO SCH (11:30)
[2019-03-01 11:31] VITALS: BP 120/68
[2019-03-01] MEDS: ISOSORBIDE MONONITRATE ER 30 MG TAB.ER.24H PO SCH (11:31)
--- NOTE | 2019-03-01 11:37 | PDOC ---
CHALO DIAMOND CLINICAL EDUCATION MANAGER 03/01/19 1137: SUBJECTIVE Subjective Family Member and patient are concerned over the color of his urine, as it was a very dark red last night. Denies pain, dysuria however. OBJECTIVE Objective Physical Exam: General appearance: Alert and Oriented Head: Normocephalic, without obvious abnormality Eyes: conjunctivae/corneas clear. PERRL, EOM's intact. Fundi benign Back: negative, no CVA pain bilaterally Lungs: Regular respirations, non labored breathing Abdomen: soft, non-tender. Bowel sounds normal. No masses, no organomegaly Urine is tea colored and transparent this am. Vital Signs Vital Signs Date Time Temp Pulse Resp B/P (MAP) Pulse Ox O2 Delivery O2 Flow Rate FiO2 03/01/19 07:00 98.1 45 18 120/68 (85) 95 Room Air 98.1 03/01/19 03:00 98.7 65 18 107/57 (74) 96 Room Air 98.7 02/28/19 23:00 97.5 55 20 106/53 (70) 96 Room Air 97.5 02/28/19 20:23 52 139/62 02/28/19 20:23 52 139/62 02/28/19 20:00 Room Air 02/28/19 19:00 97.8 52 18 139/62 (87) 99 Room Air 97.8 02/28/19 15:00 98.2 50 18 136/61 (86) 98 Room Air 98.2 I & O Intake and Output 03/01/19 07:00 Intake Total 400 ml Output Total 200 ml Balance 200 ml Intake Oral 400 ml Output Urine Total 200 ml # Voids 4 # Bowel Movements 1 PHYSICAL EXAM Physical Exam Physical Exam: General appearance: Alert and Oriented Head: Normocephalic, without obvious abnormality Eyes: conjunctivae/corneas clear. PERRL, EOM's intact. Fundi benign Back: negative, no CVA pain bilaterally Lungs: Regular respirations, non labored breathing Abdomen: soft, non-tender. Bowel sounds normal. No masses, no organomegaly Urine is tea colored and transparent this am. ASSESSMENT/PLAN Assessment/Plan Patient's urine is normal this am times two (TARIFF COMPILING CLERK visuzliaed once and then RN noted regular yellow urine again at 11 am) Ok to discharge home whenever medical team is ready. Follow up with Dr. Vaughan as previously scheduled, on 03/[address] [facility] location for cystoscopy. COMMENT Lab Laboratory Tests Test 02/28/19 17:04 02/28/19 20:39 03/01/19 07:21 Glucose (Fingerstick) 186 mg/dL (70-99) 218 mg/dL (70-99) 160 mg/dL (70-99) ALBAN VAUGHAN MD 03/04/19 1613: ASSESSMENT/PLAN Assessment/Plan Agree with assessment and plan. CHALO DIAMOND APRN Mar 01, 2019 11:37 ALBAN VAUGHAN MD Mar 04, 2019 16:13
--- NOTE | 2019-03-01 13:28 | NUR ---
SW following for discharge planning. Discussed with RN, pt is from home with family. Discharge order in chart for home with self care. No further SW needs.
--- NOTE | 2019-03-01 13:56 | NUR ---
Pt was discharged to home at 1340 today in stable condition with all personal belongings after reviewing all pertinent information including education, medications, follow up and at home care. Pt was escorted by staff and driven home by his .
--- NOTE | 2019-03-01 15:48 | PDOC3 ---
Discharge Summary Visit Information Date of Admission: Feb 27, 2019 Date of Discharge: Mar 01, 2019 Final Diagnosis Hematuria UTI and BPH History of chronic systolic dysfunction with EF of 20% History of essential hypertension History of diabetes mellitus type 2 Dyslipidemia Chronic anticoagulation for atrial fibrillation currently will place on hold given hematuria. Problems Medical Problems: (1) Hematuria Status: Acute (2) Urinary tract infection Status: Acute Brief Hospital Course Allergies Allergies Coded Allergies Type Severity Reaction Last Updated Verified No Known Drug Allergies 02/20/14 No Vital Signs Vital Signs Date Time Temp Pulse Resp B/P (MAP) Pulse Ox O2 Delivery O2 Flow Rate FiO2 03/01/19 13:11 Room Air 03/01/19 11:31 45 120/68 03/01/19 11:00 98.2 18 97 98.2 Lab Results Laboratory Tests Test 02/27/19 17:02 02/27/19 21:15 02/28/19 07:36 02/28/19 07:40 Glucose (Fingerstick) 249 mg/dL (70-99) 175 mg/dL (70-99) 208 mg/dL (70-99) White Blood Count 4.9 x10^3/uL (4.0-11.0) Red Blood Count 5.04 x10^6/uL (4.30-5.70) Hemoglobin 14.4 g/dL (13.0-17.5) Hematocrit 44.5 % (39.0-53.0) Mean Corpuscular Volume 88 fL (79-100) Mean Corpuscular Hemoglobin 29 pg (25-35) Mean Corpuscular Hemoglobin Concent 32 g/dL (31-37) Red Cell Distribution Width 13.7 % (11.5-14.5) Platelet Count 170 x10^3/uL (140-400) Neutrophils (%) (Auto) 68 % (31-73) Lymphocytes (%) (Auto) 18 % (24-48) Monocytes (%) (Auto) 9 % (0-9) Eosinophils (%) (Auto) 4 % (0-3) Basophils (%) (Auto) 1 % (0-3) Neutrophils # (Auto) 3.3 x10^3uL (1.8-7.7) Lymphocytes # (Auto) 0.9 x10^3/uL (1.0-4.8) Monocytes # (Auto) 0.5 x10^3/uL (0.0-1.1) Eosinophils # (Auto) 0.2 x10^3/uL (0.0-0.7) Basophils # (Auto) 0.0 x10^3/uL (0.0-0.2) Sodium Level 140 mmol/L (136-145) Potassium Level 4.4 mmol/L (3.5-5.1) Chloride Level 107 mmol/L (98-107) Carbon Dioxide Level 24 mmol/L (21-32) Anion Gap 9 (6-14) Blood Urea Nitrogen 24 mg/dL (8-26) Creatinine 1.4 mg/dL (0.7-1.3) Estimated GFR (Cockcroft-Gault) 49.8 Glucose Level 213 mg/dL (70-99) Calcium Level 8.7 mg/dL (8.5-10.1) Test 02/28/19 11:27 02/28/19 17:04 02/28/19 20:39 03/01/19 07:21 Glucose (Fingerstick) 341 mg/dL (70-99) 186 mg/dL (70-99) 218 mg/dL (70-99) 160 mg/dL (70-99) Test 03/01/19 11:42 Glucose (Fingerstick) 180 mg/dL (70-99) Laboratory Tests Test 02/28/19 17:04 02/28/19 20:39 03/01/19 07:21 03/01/19 11:42 Glucose (Fingerstick) 186 mg/dL (70-99) 218 mg/dL (70-99) 160 mg/dL (70-99) 180 mg/dL (70-99) Brief Hospital Course Mr. Bailon is a 74 old admit with hematuria, uro consult CV meds held (plavix), BPH med started he was imrpoved, pain better, urine normal restart plavix at DC Discharge Information Condition at Discharge: Improved Follow Up: Weeks Disposition/Orders: D/C to Home Scheduled Amiodarone Hcl (Amiodarone Hcl) 200 Mg Tablet, 1 TAB PO HS for unknown, #90 Ref 1 (Reported) Entered as Reported by: ARIS GIL on 02/25/19 0243 Last Action: Continued on 02/27/19 1637 by BROWN GARCIA Apixaban (Eliquis) 5 Mg Tablet, 5 MG PO BID for 30 Days, #60 Prescribed by: SOFIA AL MD on 07/20/181631 Last Action: Continued on 02/27/191636 by BROWN GARCIA Atorvastatin Calcium (Atorvastatin Calcium) 40 Mg Tablet, 40 MG PO QHS for 30 Days, #30 Ref 11 Prescribed by: SOFIA AL MD on 07/20/18 163 Last Action: Continued on 02/27/191636 by BROWN GARCIA Cetirizine Hcl (Cetirizine Hcl) 10 Mg Tablet, 1 TAB PO DAILY for allergies, #30 Ref 5 (Reported) Entered as Reported by: ARIC HARRIS on 02/27/19 0506 Last Action: Continued on 02/27/191636 by BROWN GARCIA Cholecalciferol (Vitamin D3) (Vitamin D) 50,000 Unit Capsule, 50,000 UNIT PO QSU for supplement, (Reported) Entered as Reported by: ARIS GIL on 02/24/192126 Last Action: Converted on 02/27/191636 by BROWN GARCIA Finasteride (Finasteride) 5 Mg Tablet, 5 MG PO DAILY for urinary retention, #30 Prescribed by: JULIANA TOLENTINO on 03/01/19 0948 Glimepiride (Glimepiride) 2 Mg Tablet, 1 TAB PO DAILY for daily, #30 Ref 5 (Reported) Entered as Reported by: ARIS GIL on 02/24/192126 Last Action: Continued on 02/27/191636 by BROWN GARCIA Isosorbide Mononitrate (Isosorbide Mononitrate Er) 30 Mg Tab.er.24h, 1 TAB PO DAILY for unknown, #30 Ref 5 (Reported) Entered as Reported by: ARIS GIL on 02/24/192126 Last Action: Continued on 02/27/191636 by BROWN GARCIA Losartan/Hydrochlorothiazide (Losartan-Hctz 50-12.5 Mg Tab) 1 Each Tablet, 1 TAB PO DAILY, #30 Ref 5 (Reported) Entered as Reported by: Donald Scott on 07/18/18 0000 Last Action: Converted on 02/27/191636 by BROWN GARCIA Metoprolol Succinate (Metoprolol Succinate ( Xl )) 25 Mg Tab.er.24h, 50 MG PO HS for FOR HYPERTENSION, #30 Ref 0 (Reported) Entered as Reported by: ARIS GIL on 02/24/192126 Last Action: Continued on 02/27/191636 by BROWN GARCIA Discontinued Medications Aspirin (Aspirin) 81 Mg Tab.chew, 81 MG PO DAILY, (Reported) Entered as Reported by: BLAINE BIRMINGHAM on 02/20/141634 Clopidogrel Bisulfate (Clopidogrel) 75 Mg Tablet, 1 TAB PO DAILY for anticogulate, #90 Ref 1 (Reported) Entered as Reported by: ARIS GIL on 02/24/192126 Glyburide (Glyburide) 1.25 Mg Tablet, 2.5 MG PO BID, (Reported) Entered as Reported by: BLAINE B[place]MINGH[place] on 02/20/141634 Metformin Hcl (Metformin Hcl) 500 Mg Tablet, 850 MG PO BID, (Reported) Entered as Reported by: BLAINE B[place]ING[place] on 02/20/141634 Patient Instructions Patient Instructions > 30 min face to face JULIANA Dyer MD Mar 01, 2019 15:47
== END 2019-03-01 13:40 | disposition home or self-care (01) | DRG 726 ==
LOC: ER 02:00 → 4 NORTH 03:28
PROVIDERS: ADMIT Internal Medicine; ATTEND Internal Medicine
DX: N40.0 Benign prostatic hyperplasia without lower urinary tract symptoms (principal); N39.0 Urinary tract infection, site not specified; I25.10 Atherosclerotic heart disease of native coronary artery without angina pectoris; I10 Essential (primary) hypertension; E78.5 Hyperlipidemia, unspecified; I48.91 Unspecified atrial fibrillation; N20.0 Calculus of kidney; N28.1 Cyst of kidney, acquired; E11.9 Type 2 diabetes mellitus without complications; Z86.73 Personal history of transient ischemic attack (TIA), and cerebral infarction without residual deficits; I25.2 Old myocardial infarction; Z87.442 Personal history of urinary calculi; Z79.899 Other long term (current) drug therapy; Z79.01 Long term (current) use of anticoagulants; Z79.02 Long term (current) use of antithrombotics/antiplatelets
CPT/HCPCS: 36415; 74176; 80048; 80053; 81001; 82962; 83735; 85025; 85610; 85730; 87086; 96361; 96365; 96375; J0696; J1815; J3475; J7030; 99285-25